=== PATIENT | female | born 1990 | race Caucasian/White ===

== ENCOUNTER 2021-09-06 09:30 | Inpatient (IN) | payer OTHER, SELFPAY ==
[2021-09-06] VITALS (14 sets, daily range): BP systolic 98–151; BP diastolic 43–94; PULSE 75–87; RESP 14–20; TEMP 35.9–36.6; O2SAT 95–98; BMI 43.0
[2021-09-06] MEDS: Lactated Ringers 1,000 ML 999 ML IV (10:12)
[2021-09-06 10:26] LABS: Bedside Glucose 78 mg/dL (74-106)
[2021-09-06] MEDS: Acetaminophen 500 MG Tablet 1000 MG PO ×3 (10:27→23:33)
[2021-09-06 10:32] LABS: Absolute Neutrophil Count 8.5 X10^3/uL (2.0-7.7); Basophil# 0.03 X10^3/uL; Basophil% 0.3 % (0-1); Eosinophil# 0.08 X10^3/uL; Eosinophils% 0.7 % (0-5); Hemoglobin 11.9 g/dL (12.0-15.0); Lymphocyte % 19.7 % (19-41); Mean Corpuscular Hgb 30.4 pg (27.0-32.0); Mean Corpuscular Volume 89.3 fL (81-99); Monocyte# 0.63 X10^3/uL; Monocyte% 5.4 % (0-10); NRBC Flagged by Analyzer 0 % (0-5); Neutrophil # 8.53 X10^3/uL (2.7-7.7); Neutrophil % 72.9 % (47-70); Platelet Count 207 K/mm3 (150-450); RBC Distribution Width CV 14.9 % (11.6-14.6); RBC Distribution Width SD 47.8 fl (35.1-43.9); Red Blood Count 3.92 M/mm3 (4.2-5.4); White Blood Count 11.7 K/mm3 (4.4-11.0)
[2021-09-06] MEDS: Sodium Citrate/Citric Acid 30 ML UDC PO (11:50)
--- NOTE | 2021-09-06 11:59 | PCM.HP.OB ---
HPI - General General Date of Admission: 09/06/21 HPI Narrative KYLEIGH SANCHEZ, is a 30 F who presents for . Maternal Data Information Final ANUJA: 09/12/21 Gestational age: 39&1 [facility] Medical History (Updated 09/06/21 @ 12:[address] Zev Olvera MD) Gestational diabetes Gestational diabetes requiring insulin LGA (large for gestational age) fetus Polyhydramnios Home Medications Prena-Tab 09/06/21 [History Last Taken Unknown] aspirin PO 09/06/21 [History Last Taken Unknown] Allergy/AdvReac Type Severity Reaction Status Date / Time No Known Allergies Allergy Verified 09/06/21 10:08 Surgical History (Updated 09/06/21 @ 10:23 by Geovanna Bynum) History of surgery [place] teeth extracted Social History Smoking Status: Never smoker History Elective abortions Hx Para 0 Spontaneous abortions Hx # Term Pregnancies Ectopic pregnancies Hx # Pregnancies Multiple births # of living children Vital Signs Vital Signs Vital Signs: 09/06/21 10:32 Temperature 98 F Temperature Source Temporal Pulse Rate 79 Respiratory Rate 14 Blood Pressure 123/82 H Blood Pressure Mean 95 Blood Pressure Source Monitor Blood Pressure Position Semi-Fowlers Blood Pressure Location Left Arm Pulse Ox 98 Oxygen Delivery Method Room Air Weight Weight: 283 lb 1.176 oz Body Mass Index (BMI) 43.0 Physical Exam Const alert and oriented x3 Chest inspection of chest normal Resp normal respiratory effort GI soft to palpation, non-tender and non-distended Inspection: gravid Extremity no calf tenderness Labs Labs Labs: Blood Type B NEGATIVE Antibody Screen NEGATIVE Hct 35.0 % (37-47) L Hgb 11.9 g/dL (12.0-15.0) L See [facility] H&P Assessment & Plan (1) LGA (large for gestational age) fetus: COMMENT: @ 39&1 PLAN: Admit to L&D MOD - patient counseled on R/B/A & elects to proceed with a primary for suspected LGA infant and gestational diabetes requiring insulin. Informed consent signed in the office & all questions answered. COVID negative Routine care (2) Gestational diabetes requiring insulin:
--- NOTE | 2021-09-06 12:06 | EX.PCM.OBRPT ---
Maternal Data Information Final ANUJA: 09/12/21 Gestational age: 39&1 Details Operative Information Date of Procedure: 09/06/21 Pre-Operative Diagnosis: (1) LGA (2) Gestational diabetes requiring insulin Post-Operative Diagnosis: Same Indications for : - Indications Narrative: The patient was taken to the operating room where spinal anesthesia was placed & found to be adequate. She was prepped and draped in the dorsal supine position with a leftward tilt. A Pfannenstiel skin incision was made approximately 2 cm above the symphysis pubis and carried through to the underlying fascia with the scalpel. The fascia was incised incised in the midline and extended laterally with the Arredondo scissors. The rectus muscles were in the midline and the peritoneum was entered carefully and bluntly. The peritoneal incision was stretched and the bladder blade was inserted. Vesicouterine peritoneum was tented up, incised & then bladder flap created gently. The uterine incision was made in a low transverse fashion with the scalpel and extended superiorly and inferiorly with blunt dissection. The infant's head was brought to the incision in the flexed position and delivered without difficulty. The head was gently guided to allow delivery of the anterior and posterior shoulders. The body then delivered with fundal pressure in the standard fashion. The 3VC cord was clamped and cut in delayed fashion. The infant was handed off to the waiting pediatric intensive physician. The placenta was delivered with fundal massage and gentle traction in the standard fashion. The uterus was exteriorized and cleared of clots and debris. The uterine incision was closed with #1 Vicryl suture in a running locked fashion. Monocryl suture was used in an imbricating fashion. The incision was examined and was found to be hemostatic. The uterus was returned to the abdominal cavity. After irrigating [place] was placed over the uterine incision as some areas were denuded (but hemostatic). The peritoneum was closed with vicryl suture in running fashion The rectus muscle was examined and any bleeding was Bovie cauterized. The fascia was closed with PDS suture in a running standard fashion. The subcutaneous tissue was examining and any bleeding was Bovie cauterized. The subcutaneous tissue was reapproximated with interrupted sutures. The skin was closed in a subcuticular fashion by the JERO while I was present in the labor & delivery unit. The remainder of the procedure was performed by me with assistance. All sponge, lap, and needle counts were correct. The patient was taken to her room for recovery in a stable condition. Classification: Scheduled Procedure Type: low transverse soap slabber #1: Reanna Merrill Type of Anesthesia: Spinal Antibiotic Given: Ancef 3 grams IV x1 Drain: Zimmerman to straight drain Estimated Blood Loss: 800ml Fluids Replaced: 1000ml Procedure Start Time: 12:23 Procedure Stop Time: 13:08 Findings Description of Procedure: Normal maternal uterus and adnexa Presentation: Positive for Vertex Amniotic Membrane Rupture Type: Artificial Amniotic Fluid Description: Clear Placenta Disposition: [facility] Cord Vessel Description: 3 Vessels Cord Entanglement: None Infant A Gender: Female (Jaxlynn; weight = 4025g ) (1 minute): 8 (5 minute): 9 Delayed Cord Clamping: Yes Complications Complications: None
[2021-09-06] MEDS: Oxytocin 30 units/NS 500 ml 30 UNITS/500 ML IV.SOLN 167 UNITS IV (13:30)
[2021-09-06] MEDS: Ketorolac 30 MG/ML Syringe IV ×2 (14:08→19:50)
[2021-09-06] MEDS: Lactated Ringers 1,000 ML 100 ML IV (22:24)
[2021-09-06] MEDS: Enoxaparin 40 MG/0.4 ML Syringe SC (23:33)
[2021-09-07 00:47] VITALS: BP 123/64; PULSE 76; RESP 16; TEMP 36.6; O2SAT 99
[2021-09-07] MEDS: Ketorolac 30 MG/ML Syringe IV ×2 (02:35→08:57)
[2021-09-07] MEDS: Acetaminophen 500 MG Tablet 1000 MG PO ×3 (04:50→18:17)
[2021-09-07 04:52] VITALS: BP 115/57; PULSE 80; RESP 16; TEMP 36.6; O2SAT 97
[2021-09-07 05:50] LABS: Hematocrit 30.1 % (37-47); Hemoglobin 10.2 g/dL (12.0-15.0); Mean Corp Hgb Conc 33.9 g/dL (32-36); Mean Corpuscular Hgb 30.5 pg (27.0-32.0); Mean Corpuscular Volume 90.1 fL (81-99); Mean Platelet Vol. 10.7 fl (6.2-12.0); Platelet Count 162 K/mm3 (150-450); RBC Distribution Width CV 14.7 % (11.6-14.6); RBC Distribution Width SD 47.9 fl (35.1-43.9); Red Blood Count 3.34 M/mm3 (4.2-5.4)
--- NOTE | 2021-09-07 06:43 | PCM.PN.OB ---
Subjective Subjective Patient seen at bedside. Sleeping sound. Minimal pain. Some ambulation. Pain controlled. Denies any headache, vision changes, SOB, or CP. Anticipate discharge home tomorrow. Objective Data Objective Data Vital Signs: Vital Signs Temp Pulse Resp BP Pulse Ox 97.8 F 80 16 115/57 L 97 09/07/21 04:52 09/07/21 04:52 09/07/21 04:52 09/07/21 04:52 09/07/21 04:52 Oxygen Delivery Method Room Air Weight: 283 lb 1.176 oz Body Mass Index (BMI) 43.0 Intake & Output: Intake and Output for Last 24 Hours 09/05/21 09/06/21 09/07/21 23:59 23:59 23:59 Intake Total 1700 / 1700 Output Total 520 / 520 250 / 250 Balance 1180 / 1180 -250 / -250 Lab / Micro Data Result Diagrams: 09/07/21 05:40 Labs: Laboratory Results - last 24 hr 09/06/21 10:12: WBC 11.7 H, RBC 3.92 L, Hgb 11.9 L, Hct 35.0 L, MCV 89.3, MCH 30.4, MCHC 34.0, RDW Std Deviation 47.8 H, RDW Coeff of Ashwin 14.9 H, Plt Count 207, MPV 11.0, Immature Gran % (Auto) 1.000 H, Neut % (Auto) 72.9 H, Lymph % (Auto) 19.7, [place] % (Auto) 5.4, Eos % (Auto) 0.7, Baso % (Auto) 0.3, Absolute Neuts (auto) 8.5 H, Absolute Lymphs (auto) 2.30, Nucleated RBC % 0 09/06/21 10:12: Blood Type B NEGATIVE, Antibody Screen NEGATIVE 09/06/21 10:12: POC Glucose 78 09/06/21 16:30: Screen NEGATIVE, Baby's Blood Type B POSITIVE, Baby's STEVE NEGATIVE 09/07/21 05:40: WBC 11.0, RBC 3.34 L, Hgb 10.2 L, Hct 30.1 L, MCV 90.1, MCH 30.5, MCHC 33.9, RDW Std Deviation 47.9 H, RDW Coeff of Ashwin 14.7 H, Plt Count 162, MPV 10.7 Micro: Microbiology 09/06/21 10:15 Nasal Secretion SARS-CoV-2 Antigen (Rapid) - Final ROS Eyes Eyes: Denies blurry vision, change in vision or spots in vision ENT HEENT: Denies dizziness or headache(s) Cardiovascular Cardiovascular: Denies abdominal pain, chest pain or dyspnea Respiratory/Chest Respiratory/Chest: Denies cough, dyspnea, shortness of breath at rest or shortness of breath with exertion Gastrointestinal Gastrointestinal: Denies abdominal pain, diarrhea or vomiting Genitourinary Genitourinary: Denies change in urinary stream, difficulty urinating or dysuria Musculoskeletal Musculoskeletal: Reports none Integumentary Integumentary: Denies rash Neurologic Neurologic: Denies dizziness, headache(s), memory loss or weakness Physical Exam Narrative Dressing is dry and intact Const alert and no apparent distress General Appearance: cooperative and comfortable Exam Limitations: no limitations HEENT normocephalic Eyes General Eye: normal appearance of both eyes Neck full ROM General: normal visual inspection Chest Chest: symmetrical chest wall rise Resp normal respiratory effort and normal air movement Effort and Inspection: symmetric chest movement Auscultation: clear to auscultation bilaterally Cardio regular rate and regular rhythm GI normal to inspection, nondistended, normoactive bowel sounds Back/Spine normal ROM Extremity full ROM and no calf tenderness General Extremity: normal exam except as noted Skin no rashes or lesions noted Neuro CN's II-XII intact bilaterally Psych mental status grossly normal Assessment & Plan (1) Gestational diabetes requiring insulin: (2) S/P primary low transverse : PLAN: PO Day 1 primary C/S Pain control Routine care Ambulation support Anticipate discharge home tomorrow
[2021-09-07 08:02] LABS: Bedside Glucose 97 mg/dL (74-106)
[2021-09-07 08:52] VITALS: BP 116/61; PULSE 67; RESP 16; TEMP 36.4; O2SAT 97
[2021-09-07] MEDS: Senna/Docusate Sodium 1 Tablet PO (11:27)
[2021-09-07] MEDS: Enoxaparin 40 MG/0.4 ML Syringe SC ×2 (11:27→21:37)
[2021-09-07 11:31] VITALS: BP 102/68; PULSE 86; RESP 16; TEMP 36.5; O2SAT 97
[2021-09-07] MEDS: Ibuprofen 600 MG Tablet PO ×2 (15:26→21:37)
[2021-09-07 15:28] VITALS: BP 128/65; PULSE 87; RESP 16; TEMP 36.4; O2SAT 97
[2021-09-07 20:47] VITALS: BP 124/70; PULSE 77; RESP 16; TEMP 36.5
[2021-09-08] MEDS: Acetaminophen 500 MG Tablet 1000 MG PO ×2 (00:54→06:23)
[2021-09-08 03:26] VITALS: BP 107/66; PULSE 80; RESP 18; TEMP 36.6
[2021-09-08] MEDS: Ibuprofen 600 MG Tablet PO ×2 (03:29→09:41)
--- NOTE | 2021-09-08 07:12 | PCM.DC.SUM ---
Providers Date of Admission: 09/06/21 Primary Care Physician: Dr. Ed Cabrales MD Reason For Visit: PRIMARY C SECTION Diagnosis Discharge Diagnosis (1) Gestational diabetes requiring insulin: Status: Acute Code(s): O24.414 - Gestational diabetes mellitus in , insulin controlled (2) S/P primary low transverse : Status: Acute Code(s): Z98.891 - History of uterine scar from previous surgery Medications at Discharge Home Medications acetaminophen 1,000 mg PO Q6H #0 tab 09/08/21 ibuprofen 600 mg PO Q6H #0 tab 09/08/21 Hospital Course Operations section Summary of Care Provided Hospital Course: Patient was for a primary section. Hospital course was uneventful Physical Exam Narrative Patient seen at bedside. Pain controlled. Ambulating and voiding without difficulty. Had 2 BM. Denies any headache, dizziness, SOB, or CP. Both breast and bottle feeding. Dressing is dry and intact. Desires discharge home today. Const alert and no apparent distress General Appearance: cooperative and comfortable Exam Limitations: no limitations HEENT normocephalic Eyes General Eye: normal appearance of both eyes Neck full ROM General: normal visual inspection Chest Chest: symmetrical chest wall rise Resp normal respiratory effort and normal air movement Effort and Inspection: symmetric chest movement Auscultation: clear to auscultation bilaterally Cardio regular rate and regular rhythm GI normal to inspection, nondistended, normoactive bowel sounds Back/Spine normal ROM Extremity full ROM and no calf tenderness General Extremity: normal exam except as noted Skin no rashes or lesions noted Neuro CN's II-XII intact bilaterally Psych mental status grossly normal Weight / BMI Weight Weight: 283 lb 1.176 oz Body Mass Index (BMI) 43.0 ABG / Lab / Microbiology Data Result Diagrams: 09/07/21 05:40 Laboratory: Laboratory Results - last 24 hr 09/07/21 05:37: POC Glucose 97 Microbiology: Microbiology 09/06/21 10:15 Nasal Secretion SARS-CoV-2 Antigen (Rapid) - Final D/C Instructions Discharge Diet: No restrictions May resume sexual activity in: 6-8 weeks Weight Bearing Status: Weight bearing as tolerated Lifting Restrictions: 20 lbs Call your doctor if your incision/area has: Continuous Slow Oozing, Increased Pain/ Swelling, Increased Redness, Foul Smelling Discharge and Swelling at the incision site Call your doctor if you observe: Fever of 101 or Higher, Inability to urinate, Using more than 1 pad per hour, Shortness of breath, Chest pain, Calf discomfort and Uncontrolled pain Remove Dressing in: 5 days Cleanse incision/area with: Soap & Water and Keep Dressing Clean & Dry When: 1 week in office for incision check or sooner if needed 6 weeks Meaningful Use Info Meaningful Use Diagnoses (Choose all that apply): None applicable Discharge Plan Admission Admit Date/Time: 09/06/21 09:30 Primary Reason for Your Visit: Primary C/S Attending Provider: Zev Olvera Primary Care Provider: Ed Cabrales Discharge Orders/Prescriptions Prescriptions: New acetaminophen 500 mg Tablet 1,000 mg PO Q6H Qty: 0 RF: 0 ibuprofen 600 mg Tablet 600 mg PO Q6H Qty: 0 RF: 0 Discontinued aspirin 81 mg Tablet PO RF: 0 Prena-Tab RF: 0 Referrals / Follow Up: Ed Cabrales MD [Primary Care Provider] - Disposition Disposition (needs filled in before D/C Order can be placed): Home, Self Care
[2021-09-08 08:34] VITALS: BP 97/67; PULSE 78; RESP 18; TEMP 36.5
[2021-09-08] MEDS: Enoxaparin 40 MG/0.4 ML Syringe SC (09:41)
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
== END 2021-09-08 10:35 | disposition home or self-care (01) | DRG 788 ==
PROVIDERS: Admitting Provider Obstetrics & Gynecology; Visit Provider Obstetrics & Gynecology
PROC: 10D00Z1 Extraction of Products of Conception, Low, Open Approach (ICD-10-PCS; CPT 59514; principal; 2021-09-06 11:45)
DX: O36.63X0 Maternal care for excessive fetal growth, third trimester, not applicable or unspecified (principal); O24.424 Gestational diabetes mellitus in childbirth, insulin controlled; Z37.0 Single live birth; Z3A.39 39 weeks gestation of pregnancy; Z79.82 Long term (current) use of aspirin
CPT/HCPCS: 59025; 59050; 82962; 85025; 85027; 85461; 86850; 86900; 86901; 87426; 90384; 99218; 99251; J7120; G0378; G0463; J2405; J2790

== ENCOUNTER → 2022-09-22 | Outpatient (CLI) | payer BC, SELFPAY ==
[2022-09-22 10:16] LABS: Absolute Lymphocyte Count 2.32 X10^3/uL (0.83-4.51); Absolute Neutrophil Count 5.6 X10^3/uL (2.0-7.7); Basophil# 0.05 X10^3/uL; Basophil% 0.6 % (0-1); Eosinophil# 0.19 X10^3/uL; Eosinophils% 2.2 % (0-5); Hematocrit 39.6 % (37-47); Hemoglobin 12.8 g/dL (12.0-15.0); Lymphocyte # 2.32 X10^3/ul (0.83-4.51); Lymphocyte % 26.9 % (19-41); Mean Corp Hgb Conc 32.3 g/dL (32-36); Mean Corpuscular Hgb 29.5 pg (27.0-32.0); Mean Corpuscular Volume 91.2 fL (81-99); Mean Platelet Vol. 11.2 fl (6.2-12.0); Monocyte# 0.42 X10^3/uL; Monocyte% 4.9 % (0-10); NRBC Flagged by Analyzer 0 % (0-5); Neutrophil # 5.62 X10^3/uL (2.7-7.7); Neutrophil % 65.2 % (47-70); Platelet Count 246 K/mm3 (150-450); RBC Distribution Width CV 13.8 % (11.6-14.6); RBC Distribution Width SD 46.6 fl (35.1-43.9); Red Blood Count 4.34 M/mm3 (4.2-5.4); White Blood Count 8.6 K/mm3 (4.4-11.0)
[2022-09-22 10:32] LABS: Hemoglobin A1c 5.4 % (3.8-5.6); Vitamin B12 > 2000 pg/mL (211-911)
[2022-09-22 10:36] LABS: AST(SGOT) 24 U/L (15-37); Alanine Aminotransfer ALT/SGPT 50 U/L (13-56); Albumin, Serum 3.6 g/dL (3.2-5.0); Alkaline Phosphatase 85 U/L (45-117); Anion Gap 6 (5-15); BUN 15 mg/dL (7-18); BUN/Creat Ratio 18.8 RATIO (10-20); Calcium,Total 8.4 mg/dL (8.5-10.1); Chloride 110 mmol/L (98-107); Cholesterol 122 mg/dL (200); EST Glomerular Filtration Rate 90 mL/min (>60); Est Glom Filt Rate - Afr Amer 109 mL/min (>60); Ferritin 27 ng/mL (8-252); Globulin 3.6 g/dL (2.2-4.2); Glucose 102 mg/dL (74-106); High Density Lipoprotein 48 mg/dL; Magnesium 1.8 mg/dL (1.6-2.6); Potassium 3.8 mmol/L (3.5-5.1); Protein, Total 7.2 g/dL (6.4-8.2); Sodium Level 139 mmol/L (136-145); Thyroid Stim Hormone (TSH) 1.11 uIU/mL (0.358-3.74); Triglycerides 91 mg/dL; Very Low Density Lipoprotein 18 mg/dL (5-40)
[2022-09-27 11:11] LABS: Vitamin D 1,25-Dihydroxy 56.1 pg/mL (24.8-81.5)
== END | disposition home or self-care (01) ==
PROVIDERS: PCP Family Medicine; Referring Provider Family Medicine; Visit Provider Family Medicine
DX: F32.9 Major depressive disorder, single episode, unspecified (principal); E66.9 Obesity, unspecified
CPT/HCPCS: 36415; 80053; 80061; 82607; 82652; 82728; 83036; 83735; 84443; 85025

== ENCOUNTER 2023-07-03 14:45 | Outpatient (CLI) | payer BC, SELFPAY ==
[2023-07-03 15:03] VITALS: BMI 40.6
[2023-07-03 15:05] VITALS: BP 104/74; PULSE 87; PULSE 88; TEMP 36.1; O2SAT 99
[2023-07-03 15:21] LABS: Mucous, Urine 0 SEEN /hpf (<or=2+)
[2023-07-03 15:45] LABS: Color, Urine Yellow (Yellow); Glucose, Dipstick Normal (Normal); Ketone-Dipstick Negative (Negative); Leukocyte Esterase-Dipstick 500 /ul (Negative); Nitrite-Dipstick Negative (Negative); Occult Blood-Urine 250 /ul (Negative); Protein-Dipstick 15 mg/dl (Negative); Urine Bilirubin Dipstick Negative (Negative); Urine Clarity Cloudy (Clear); Urine Urobilinogen Normal (Normal)
--- OUTSIDE RECORDS SUMMARY | 2023-07-03 16:14 | XMS RPT_ITS | CCD ---
Author Name Unknown Address [address] [facility] [address] [place] [address] Organization [facility] Care Team Providers Care Hairspring I Inspector Name Role Phone Jose M Cabrales MD Primary Care Provider YENNI CATALAN Attending Unavailable CABRALES, JOSE M A Primary Care Unavailable CABRALES, JOSE M A Primary Care Unavailable PUENTEJULIANA Attending Unavailable CABRALES, JOSE M A Primary Care Unavailable SERVANDO, JULIANA Referring Unavailable REYES ARRIETA Attending Unavail able CABRALES, JOSE M A Primary Care Unavailable PUENTE, AMY Referring Unavailable YENNI CATALAN Attending Unavailable CABRALES, JOSE M A Primary Care Unavailable CABRALES, JOSE M A Primary Care Unavailable PUENTE, JULIANA Referring Unavailable CABRALES, JOSE M A Primary Care Unavailable ALIZA STOREY Referring Unavailable CABRALES, JOSE M A Primary Care Unavailable YENNI CATALAN Attending Unavailable CABRALES, JOSE M A Primary Care Unavailable CANDACE NEWELL Referring Unavailable CABRALES, JOSE M A Primary Care Unavailable CABRALES, JOSE M A Primary Care Unavailable YENNI CATALAN Attending Unavailable YENNI CATALAN Attending Unavailable CABRALES, JOSE M A Primary Care Unavailable YENNI CATALAN Referring Unavailable CABRALES, JOSE M A Primary Care Unavailable YENNI CATALAN Attending Unavailable CABRALES, JOSE M A Primary Care Unavailable Medications Completed/Discontinued Medications Medication Drug Class(es) Dates Sig (Normalized) Sig (Original) Acetaminophen (2 sources) End: 10-19-2021 acetaminophen (TYLENOL ORAL) Take by mouth. 0 10/19/2021 Discontinued Problems Active Problems Problem Classification Problem Date Documented Date Episodic/Chronic Diabetes mellitus without complication (6 sources) Increased glucose level; Translations: [Other abnormal glucose] Onset: 02-19-2021 04-18-2023 Episodic Diabetes or abnormal glucose tolerance complicating ; childbirth; or the puerperium (3 sources) Gestational diabetes mellitus; Translations: [Gestational diabetes mellitus in , insulin controlled] Onset: 03-02-2021 01-25-2023 Episodic Headache; including migraine (8 sources) Tension-type headache; Translations: [Tension-type headache, unspecified, not intractable] Onset: 03-30-2023 03-30-2023 Chronic Other aftercare (1 source) Wound finding; Translations: [Encounter for other specified aftercare] Episodic Other complications of (11 sources) Obesity; Translations: [Obesity complicating , unspecified trimester] Onset: 02-18-2021 01-25-2023 Chronic Other complications of (7 sources) Maternal obesity complicating , childbirth and the puerperium, antepartum; Translations: [Obesity complicating , second trimester] Onset: 02-18-2021 03-30-2023 Chronic Other complications of (1 source) Obesity complicating , unspecified trimester; Translations: [Obesity in ] Onset: 06-13-2023 Chronic Other complications of (5 sources) History of gestational diabetes mellitus; Translations: [Supervision of with other poor reproductive or obstetric history, unspecified trimester] Episodic Other complications of (1 source) Supervision of with other poor reproductive or obstetric history, unspecified trimester; Translations: [History of gestational diabetes in prior , currently ] Onset: 04-14-2023 Episodic Other female genital disorders (1 source) Vaginal irritation; Translations: [Other specified noninflammatory disorders of vagina] 02-23-2023 Episodic Residual codes; unclassified (1 source) Gestation period, 11 weeks; Translations: [11 weeks gestation of ] 02-23-2023 Episodic Residual codes; unclassified (1 source) Gestation period, 12 weeks; Translations: [12 weeks gestation of ] 03-02-2023 Episodic Residual codes; unclassified (1 source) Gestation period, 16 weeks; Translations: [16 weeks gestation of ] 03-30-2023 Episodic Residual codes; unclassified (2 sources) Gestation period, 19 weeks; Translations: [19 weeks gestation of ] 04-21-2023 Episodic Past or Other Problems Problem Classification Problem Date Documented Da te Episodic/Chronic Immunizations and screening for infectious disease (6 sources) Requires measles, mumps and rubella vaccination; Translations: [Encounter for immunization] Onset: 02-07-2023 04-21-2023 Episodic Other complications of (15 sources) RhD negative; Translations: [Other specified related conditions, unspecified trimester] Onset: 02-18-2021 01-25-2023 Episodic Other complications of (10 sources) Rubella non-immune; Translations: [Supervision of other high risk pregnancies, unspecified trimester] Onset: 01-24-2023 02-08-2023 Episodic Other and delivery including normal (7 sources) care status; Translations: [Encounter for routine follow-up] Onset: 01-25-2023 Episodic Other screening for suspected conditions (not mental disorders or infectious disease) (9 sources) Patient encounter status; Translations: [Encounter for screening for malignant neoplasm of cervix] Onset: 02-07-2023 Episodic Results Test Name Value Interpretation Reference Range Facil ity Vital Signs Date Time Vital Sign Value Performing Clinician Faci lity 04-21-2023 15:07-0400 Diastolic blood pressure 70 mm[Hg] Candace Newell APRN.DESKTOP SUPPORT SPECIALIST Work Phone: [facility] 04-21-2023 15:07-0400 Systolic blood pressure 114 mm[Hg] Candace Newell FINAL CANOE INSPECTOR.DESKTOP SUPPORT SPECIALIST Work Phone: [facility] 04-21-2023 15:05-0400 Body weight 114.31 kg Candacealix Gastelumnadja FINAL CANOE INSPECTOR.DESKTOP SUPPORT SPECIALIST Work Phone: [facility] 04-14-2023 15:22-0400 Body weight 116.5752 kg YENNI CATALAN [facility] Encounters Encounter Date Encounter Type Care Provider Facility Start: 06-27-2023 End: 06-27-2023 ambulatory YENNI CATALAN Facility:[facility] Start: 06-15-2023 Telephone encounter Yenni nielsen MD Work Phone: OB/Gynecology Procedures Date Procedure Procedure Detail Performing Clinician Start: 04-21-2023 URINE OB DIP B/O Yenni Catalan MD Work Phone: Start: 04-21-2023 Us preg uterus after 1st trimest 06/26 gestation Yenni Catalan MD Work Phone: Start: 03-30-2023 URINE OB DIP B/O Yenni Catalan MD Work Phone: Start: 03-02-2023 Us nuchal translucency 1st gestation Juliana Puente APRN.DESKTOP SUPPORT SPECIALIST Work Phone: Start: 02-23-2023 H/O: section H/O s ection Yenni Catalan MD Work Phone: Start: 02-23-2023 URINE OB DIP B/O Yenni Catalan MD Work Phone: Start: 02-07-2023 Antibody screen YENNI CATALAN Plan of Treatment Date Care Activity Detail Author Start: 01-26-2028 HPV TESTING HPV TESTING [facility] Start: 01-26-2028 Screening for malign ant neoplasm of cervix HPV Testing [facility] Start: 11-07-2026 Urine microalbumin profile [facility] Start: 10-19-2026 HPV TESTING HPV TESTING [facility] Start: 01-25-2026 PAP TESTING PAP TESTING [facility] Start: 01-25-2026 Screening for malign ant neoplasm of cervix Pap Testing [facility] Start: 10-19-2024 PAP TESTING PAP TESTING [facility] Start: 07-11-2023 RSV Vaccine (1 - Ris k 1-dose series) RSV Vaccine (1 - Risk 1-dose series) [facility] Start: 06-15-2023 End: 09-14-2023 Fasting glucose [Mass/volume] in Serum or Plasma GLUCOSE FASTING BLD Lab Routine Elevated fasting blood sugar Expected: 06/15/2023, Expires: 09/14/2023 [facility] Work Phone: Immunizations Immunization Date Immunization Notes Care Provider Fa [facility] 06-13-2023 RHO(D) immune globul in- IV or IM Yenni Catalan MD Work Phone: [facility] 06-22-2021 RHO(D) immune globul in- IV or IM Reyes Bailon MD Work Phone: [facility] 02-08-2018 RHO(D) immune globul in- IV or IM Reyes Bailon MD Work Phone: [facility] 04-18-2017 influenza virus vacc ine, unspecified formulation Yenni Catalan MD Work Phone: [facility] 11-07-2016 tetanus toxoid, redu bony diphtheria toxoid, and acellular pertussis vaccine, adsorbed Reyes Bailon MD Work Phone: [facility] 07-24-2013 influenza virus vacc ine, unspecified formulation Reyes Bailon MD Work Phone: [facility] 05-08-2009 influenza virus vacc ine, unspecified formulation Reyes Bailon MD Work Phone: [facility] 05-03-2008 influenza virus vacc ine, unspecified formulation Reyes Bailon MD Work Phone: [facility] 05-03-2008 meningococcal polysaccharide vaccine (MPSV4) Reyes Bailon MD Work Phone: [facility] 07-12-2007 human papilloma viru s vaccine, quadrivalent Reyes Bailon MD Work Phone: [facility] 03-28-2007 human papilloma viru s vaccine, quadrivalent Reyes Bailon MD Work Phone: [facility] 01-19-2007 human papilloma viru s vaccine, quadrivalent Reyes Bailon MD Work Phone: [facility] 01-19-2007 tetanus toxoid, redu bony diphtheria toxoid, and acellular pertussis vaccine, adsorbed Reyes Bailon MD Work Phone: [facility] 05-31-2006 influenza virus vacc ine, unspecified formulation Reyes Bailon MD Work Phone: [facility] Work Phone: 05-27-2005 influenza virus vacc ine, unspecified formulation Reyes Bailon MD Work Phone: [facility] 02-13-1998 diphtheria, tetanus toxoids and pertussis vaccine Reyes Bailon MD Work Phone: [facility] 02-13-1998 measles, mumps and rubella virus vaccine Reyes Bailon MD Work Phone: [facility] 02-13-1998 poliovirus vaccine, inactivated Reyes Bailon MD Work Phone: [facility] 03-23-1994 diphtheria, tetanus toxoids and pertussis vaccine Reyes Bailon MD Work Phone: [facility] 03-23-1994 haemophilus influenz ae type b vaccine, HbOC conjugate Reyes Bailon MD Work Phone: [facility] 03-23-1994 measles, mumps and rubella virus vaccine Reyes Bailon MD Work Phone: [facility] 03-23-1994 poliovirus vaccine, inactivated Reyes Bailon MD Work Phone: [facility] 06-16-1993 hepatitis B vaccine, pediatric or pediatric/adolescent dosage Reyes Bailon MD Work Phone: [facility] 05-19-1993 diphtheria, tetanus toxoids and pertussis vaccine Reyes Bailon MD Work Phone: [facility] 05-19-1993 haemophilus influenz ae type b vaccine, HbOC conjugate Reyes Bailon MD Work Phone: [facility] 03-17-1993 diphtheria, tetanus toxoids and pertussis vaccine Reyes Bailon MD Work Phone: [facility] 03-17-1993 haemophilus influenz ae type b vaccine, HbOC conjugate Reyes Bailon MD Work Phone: [facility] 03-17-1993 poliovirus vaccine, inactivated Reyes Bailon MD Work Phone: [facility] 01-20-1993 diphtheria, tetanus toxoids and pertussis vaccine Reyes Bailon MD Work Phone: [facility] 01-20-1993 haemophilus influenz ae type b vaccine, HbOC conjugate Reyes Bailon MD Work Phone: [facility] 01-20-1993 poliovirus vaccine, inactivated Reyes Bailon MD Work Phone: [facility] 1992 hepatitis B vaccine, pediatric or pediatric/adolescent dosage Reyes Bailon MD Work Phone: [facility] 1992 hepatitis B vaccine, pediatric or pediatric/adolescent dosage Reyes Bailon MD Work Phone: [facility] Payers Date Payer Category Payer Unknown [employer] PPO [id number] 2022-Present [phone] [address] [place] [address] PPO [id number] 2022 Unknown [id number] 2020 Private Health Insurance [facility] CHOICE PLUS [id number] 2020-Present [phone] [address] [place] [address] HMO [id number] Social History Date Type Detail Facility [facility]: [facility] Start: 10-13-2021 End: 06-13-2023 Alcohol intake Ex-drinker (finding) [facility] Start: 09-03-2021 History SDOH Alcohol Frequency 98 [facility] Start: 12-24-2014 History SDOH Alcohol Comment Social [facility] Start: 09-03-2021 History SDOH Social Connections Living 3 [facility] Start: 02-18-2021 Education 15 [facility] Start: 1990 Sex Assigned At Not on file [facility] Start: 10-03-2021 End: 10-19-2021 Exposure to SARS-CoV-2 (event) Not sure [facility] Work Phone: Start: 01-25-2023 Tobacco use and exposure Smoke less tobacco non-user [facility] Start: 09-03-2021 End: 02-23-2023 History of Social function [facility] Start: 09-03-2021 End: 02-23-2023 Social connection and isolation panel [facility] In a typical week, h ow many times do you talk on the telephone with family, friends, or neighbors? Patient refused [facility] Are you now , , , , never or living with a partner? [facility] (I/We) worried whedeneen er (my/our) food would run out before (I/we) got money to buy more. DK or Refused [facility] Start: 12-13-2022 [facility] Goals Date Patient Goal Desired Activity /State Personal health goal Clinical Notes 03-13-2021 to 06-15-2023 Telephone Encounter - Yenni Catalan MD - 06/15/2023 11:39 AM ESTTelephone Encounter - Willa Feliciano LPN - 06/15/2023 11:08 AM ESTPatient InstructionsPatient InstructionsPatient Instructions Note Date & Type Note Facility 06-15-2023 Miscellaneous Notes Done Yenni Catalan MD Pt was left a message and mychart message with below results and instructions.. Please see pended order below. Willa Feliciano LPN ----- Message from Yenni Catalan MD sent at 06/15/2023 10:56 AM EST ----- 3hr GTT was negative but FBS was elevated. I would like her to get another FBS in the next 1-2 weeks. Also I recommend a low carb diet & walking 30 minutes daily. Yenni Catalan MD documented in this encounter [facility] 05-12-2023 Miscellaneous Notes sent message. Hermelinda Bo MD 22w5d She was having mild lower back pain 1-2 weeks, but it became severe now. Having lower pelvic pressure with it too. Rating back pain 8-9/10 today. Took tylenol and using heating pad now and does feel like it is starting to help. 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 When sitting pain is bearable, but gets worse when up and walking. No urinary symptoms, bleeding, leaking fluid or discharge. Please advise. Amanda Nickerson RN documented in this encounter [facility] 04-21-2023 Miscellaneous Notes S: Tomeka Sanchez is a 32 year old female who presents at 19w5d for a routine visit. Feeling movement. Denies headache, visual changes, chest pain, shortness of breath, vaginal bleeding, leakage of fluid, or dysuria. Feeling well, no complaints. O: See flow sheet Gen: No apparent distress Abd: Gravid, nontender, S=D ASSESSMENT/PLAN: 1. H/O section - ICD9: V45.89, ICD10: Z98.891 (primary diagnosis) - Plans repeat 2. 19 weeks gestation of - ICD9: V22.2, ICD10: Z3A.19 - Anatomy ultrasound today 3. Tension headache - ICD9: 307.81, ICD10: G44.209 - Intermittent - Taking Tylenol and Magnesium - Encouraged increased hydration - Decrease Dr. Bro consumption - Minimize stimulation: lights, noise - To notify if persistent or visual disturbances occur 4. History of gestational diabetes - ICD9: V12.21, ICD10: Z86.32 - Elevated early one hour - HgbA1c WNL - Plan for 3 hour at 28 weeks 5. Rh negative state in antepartum period - ICD9: 646.83, ICD10: O26.899, Z67.91 - Plan for Rhogam at 28 weeks 6. Encounter for supervision of normal in second trimester, unspecified - ICD9: V22.1, ICD10: Z34.92 - Sequential results reviewed - PTL precautions reviewed and when to call 7. Obesity affecting in second trimester, unspecified obesity type - ICD9: 649.13, ICD10: O99.212 - Plan for 3rd trimester testing RTO in 4 weeks or sooner as needed GHAZAL Villalta APRN.CNP documented in this encounter [facility] 04-21-2023 Instructions s Tiffany Solorzano - 04/21/2023 3:02 PM EDT SEQUENTIAL SCREENINGS The [facility] offers sequential screenings for women who are interested in screenings for chromosomal abnormalities and certain defects during a . The sequential screen combines ultrasound and blood tests to determine the risk of chromosomal abnormalities, including Down's Syndrome (Trisomy 21) and Trisomy 18, as well as open neural tube defects including spina bifida. Ultrasound examination is performed between 11 weeks and 13 weeks gestational age. Blood tests are drawn after the ultrasound and again later in the between 15 and 21 weeks gestational age. Please let your physician know if you are interested in this testing. It will require an appointment with our lead pharmacy technician. This is not an ultrasound performed by a physician in our office during a routine visit. SIGNS AND SYMPTOMS OF LABOR 1. Contractions every 10 minutes or more often 2. Clear, pink, or brownish fluid (water) leaking from vagina 3. Feeling that baby is pushing down, pressure 4. Low, dull backache 5. Cramps that feel like a period 6. Cramps with or without diarrhea If you notice any of the above symptoms, contact our office at [phone] and ask to speak with a nurse. After hours, you can call [employer] registry at [phone] OR call [facility] at [phone] and ask to have the doctor clinical applications manager paged. If you consider this an emergency, dial 9-1-1 or go to your nearest emergency department. NEED HELP? Are you dealing with a violent or abusive relationship? Are you a victim of rape or sexual assult? Call [facility] ([place]) 24 hour Crisis Hotline: 442.217.2987 or 892-243-8555. MANUAL Your Guide to a Healthy manual is now on-line. Visit [email or web address] Yeimy to download your free copy documented in this encounter [facility] 04-18-2023 Miscellaneous Notes Patient notified Please notify patient: Elevated 1 hour. History of GDM insulin controlled. HgbA1C ordered to rule out pre existing diabetes. If within normal limits, plan for 3 hour around 28 weeks. Encourage whole foods and decreasing carb intake, as well as increasing exercise. Blood type B-, will need Rhogam at that time as well. Plan of care reviewed with Dr. Bo. documented in this encounter [facility] 03-30-2023 Miscellaneous Notes S: Tomeka is a 32 year old female who presents at 16w4d gestation for a routine visit. Feeling movement. Denies headache, visual changes, chest pain, shortness of breath, vaginal bleeding, leakage of fluid, or dysuria. Feeling well, no complaints. O: See flow sheet Gen: No apparent distress Abd: Gravid, nontender ASSESSMENT/PLAN: 1. History of gestational diabetes in prior , currently - ICD9: V23.49, ICD10: O09.299, Z86.32 (primary diagnosis) -Was diagnosed in 1st trimester, insulin dependent - HGB A1C 5.5% this - Plan for early one hour 2. 16 weeks gestation of - ICD9: V22.2, ICD10: Z3A.16 - URINE OB DIP B/O 3. Rh negative state in antepartum period, second trimester - ICD9: 646.83, ICD10: O26.892, Z67.91 - Plan for Rhogam at 28 weeks 4. Obesity affecting in second trimester, unspecified obesity type - ICD9: 649.13, ICD10: O99.212 - Plan for testing 3rd trimester - Reviewed exercise and nutrition - Taking ASA 5. Encounter for anatomic survey - ICD9: V28.81, ICD10: Z36.89 - Ordered and scheduled 6. Tension headache - ICD9: 307.81, ICD10: G44.209 - Comes and goes, not persistent - Reviewed hydration - Reviewed Magnesium supplementation Reviewed PTL precuations. Return to office in 4 weeks for anatomy ultrasound and OB visit on Candace Newell APRN.DESKTOP SUPPORT SPECIALIST documented in this encounter [facility] 03-30-2023 Instructions Tiffany Rivas Ma - 03/30/2023 2:34 PM EDT SEQUENTIAL SCREENINGS The [facility] offers sequential screenings for women who are interested in screenings for chromosomal abnormalities and certain defects during a . The sequential screen combines ultrasound and blood tests to determine the risk of chromosomal abnormalities, including Down's Syndrome (Trisomy 21) and Trisomy 18, as well as open neural tube defects including spina bifida. Ultrasound examination is performed between 11 weeks and 13 weeks gestational age. Blood tests are drawn after the ultrasound and again later in the between 15 and 21 weeks gestational age. Please let your physician know if you are interested in this testing. It will require an appointment with our lead pharmacy technician. This is not an ultrasound performed by a physician in our office during a routine visit. SIGNS AND SYMPTOMS OF LABOR 1. Contractions every 10 minutes or more often 2. Clear, pink, or brownish fluid (water) leaking from vagina 3. Feeling that baby is pushing down, pressure 4. Low, dull backache 5. Cramps that feel like a period 6. Cramps with or without diarrhea If you notice any of the above symptoms, contact our office at [phone] and ask to speak with a nurse. After hours, you can call doctors registry at [phone] OR call [facility] at [phone] and ask to have the doctor clinical applications manager paged. If you consider this an emergency, dial or go to your nearest emergency department. NEED HELP? Are you dealing with a violent or abusive relationship? Are you a victim of rape or sexual assult? Call [facility] ([place]) 24 hour Crisis Hotline: 254.758.2945 or 736-652-5843. MANUAL Your Guide to a Healthy manual is now on-line. Visit [email or web address] Ye[facility] to download your free copy documented in this encounter [facility] 03-02-2023 Instructions Nazanin Gates LPN - 03/02/2023 9:14 AM EDT SEQUENTIAL TESTING PROCESS Sequential Screen First Trimester Today you are currently: 12w4d weeks 03/02/2023: Ultrasound and blood test. Sequential Screen Second Trimester (16-17 Weeks Gestation) When you are called with your results, the nurse will give the optimal draw dates for the Sequential screen second trimester. Blood testing can be done at any [facility] lab. Please report to the any judicial registrar office front end technician for the Sequential Part 2 requisition and order before reporting to the lab. Your weight will need to be documented for testing. Please note: -No appointment is need for your second blood draw. -Office hours are 8 am to 4:30 pm. -Please have testing done prior to 12 noon on Monday's -Once the sequential testing is started, in the first trimester the only follow-up will be for the sequential screen second trimester. Please don't have a Quad screen ordered by another provider. If you or your Provider have any questions please call your maternal medicine office, for east side please call [phone] or for the West side call [phone] and ask for the the nurse. Thank you. documented in this encounter [facility] 03-02-2023 Miscellaneous Notes Patient here for First Trimester Screening. See ultrasound report for details. Options for genetic screening and diagnosis discussed with the patient. Patient opts for first trimester screening and the sequential screening protocol. Limitations of screening tests discussed with the patient. Aliza Storey MD documented in this encounter [facility] 02-28-2023 Miscellaneous Notes Patient notified of recommendations and stated that she was starting to feel better. Sounds like a GI virus. I would encourage hydration. I can send her in some zofran if she would like. If has severe abdominal pain or unable to tolerate PO then I would reccommed ED visit Yenni Catalan MD 12w2d Called and spoke with patient. Her upper abdominal pain is generally midline. Pain rate of 7 out of 10 when it occurs. She's been experiencing nausea this before the pain started. Does not take medication for it. Denies vaginal bleeding. She's had watery diarrhea 4-5 times in the last 24 hours. Please advise. Antoinette Lake RN documented in this encounter [facility] 02-23-2023 Miscellaneous Notes KJ - No VB/LOF/ctxs. She reports vaginal irritation after using a new soap. TAUS: active fetus with fca A&P: Vaginitis swab NT next week with sequential Anatomy US ordered MOD - plans repeat Yenni Catalan MD documented in this encounter [facility] 02-23-2023 Instructions Masters Jeanine, Tiffany - 02/23/2023 9:52 AM EDT SEQUENTIAL SCREENINGS The [facility] offers sequential screenings for women who are interested in screenings for chromosomal abnormalities and certain defects during a . The sequential screen combines ultrasound and blood tests to determine the risk of chromosomal abnormalities, including Down's Syndrome (Trisomy 21) and Trisomy 18, as well as open neural tube defects including spina bifida. Ultrasound examination is performed between 11 weeks and 13 weeks gestational age. Blood tests are drawn after the ultrasound and again later in the between 15 and 21 weeks gestational age. Please let your physician know if you are interested in this testing. It will require an appointment with our lead pharmacy technician. This is not an ultrasound performed by a physician in our office during a routine visit. SIGNS AND SYMPTOMS OF LABOR 1. Contractions every 10 minutes or more often 2. Clear, pink, or brownish fluid (water) leaking from vagina 3. Feeling that baby is pushing down, pressure 4. Low, dull backache 5. Cramps that feel like a period 6. Cramps with or without diarrhea If you notice any of the above symptoms, contact our office at [phone] and ask to speak with a nurse. After hours, you can call doctors registry at [phone] OR call [facility] at [phone] and ask to have the doctor clinical applications manager paged. If you consider this an emergency, dial 9-1-1 or go to your nearest emergency department. NEED HELP? Are you dealing with a violent or abusive relationship? Are you a victim of rape or sexual assult? Call [facility] ([facility] 24 hour Crisis Hotline: 862.900.5946 or 348-522-6685. MANUAL Your Guide to a Healthy manual is now on-line. Visit [email or web address] to download your free copy documented in this encounter [facility] 01-25-2023 Note HNO ID: [id number] Author: Reyes Arrieta MD Service: ? Author Type: Physician Type: Progress Notes Filed: 01/25/2023 4:48 PM Note Text: OB point of care ultrasound was performed. See imaging tab for details. Reyes Ziegler MD [facility] 01-25-2023 History of Presen t illness Narrative OB point of care ultrasound was performed. See imaging tab for details. Reyes Ziegler MD documented in this encounter [facility] 01-25-2023 Note HNO ID: [id number] Author: Juliana Puente APRN.DARA Service: ? Author Type: Nurse Practitioner Type: Progress Notes Filed: 01/25/2023 5:48 PM Note Text: Consumer Recruiter offered: Patient declines. INITIAL OB ASSESSMENT OB Provider: Juliana Puente CNP HPI: Tomeka is a 32 year old White here to establish Obstetrical Care. Patient's last menstrual period was 11/29/2022 (exact date). from OB Dating Form. Cycles regular was planned Complaints: vaginal bleeding Spotting with wiping a week ago and a few drops of blood after SI No cramping. Nausea without vomiting OB History T1 L1 SAB1 IAB0 Ectopic0 Multiple0 Live Births1 Previous history: Prior : yes x 1 History of 4th degree laceration: NA History of shoulder dystocia: No History of Hypertensive disorders including pre-eclampsia, chronic hypertension or gestational hypertension: No History of gestational diabetes: Yes insulin used Patient's Risk Screening for delivery: Have you had a prior sage between 20w and 36w6d?: No MEDICAL/PSYCHOSOCIAL HISTORY: History of hemorrhage or bleeding concerns: No Thyroid Disease: No History of chronic hypertension: No History of pre-existing diabetes: No ABO/RH(D) Date Value Ref Range Status 06/22/2021 B NEGATIVE Final BMI 37.46 kg/(m2) History of abnormal pap: No Prior treatment for cervical dysplasia: none. History of STDs: None Tobacco use: No Caffeine use: None Drug use: No Alcohol use: No Multivitamin with Folic acid: Yes Gnosticist or heritage: No Would refuse blood transfusion if medically necessary: No Are you currently employed? Yes, Occupation: EDUCATIONAL PROGRAM DIRECTOR Do you have any history of depression, anxiety, PTSD, eating disorders or other mood problems: Yes - depression. Recently switched from bupropion to sertraline due to . No PPD Do you have any safety concerns or history of traumatic events that you would like to discuss with your provider: No How often does this describe you? I don't have enough money to pay my bills: Rarely Within the past 12 months, have you worried that your food would run out before you had money to buy more: Never In the past 12 months, has lack of reliable transportation kept you from going to medical appointments or work, or from keeping things needed for daily living: Never In the past 12 months, have you had any concerns about having a place to live, or about the condition or quality of your housing: Never Are there any cultural or spiritual needs we should be aware of: No Depression: denies symptoms of depression. OB Depression and Anxiety Screening- This Encounter (since 01/24/2023) Over the past 2 weeks have you felt down, depressed, or hopeless? Negative Over the past two weeks, have you felt little interest or pleasure in doing things?? Negative Feeling nervous, anxious or on edge 0-Not at all Not being able to stop or control worrying 0-Not al all Anxiety Pre-Screening Total (If >/= 3 additional questions will be reviewed) 0 GENETIC SCREENING: Partner present: No Patient verbalized knowledge of partner family health history: Yes Do you or your partner have any personal or family history of defects not previously discussed: No Do you have history of a complicated by anomaly, genetic condition, or demise: No Marital Status: Partner: Name: Jamshid Age: 31 Occupation: dispatcher Gender: Male History of STDs: None PAST MEDICAL HISTORY Diagnosis Date ALLERGIC RHINITIS 01/19/2007 Chicken pox 06/26/1998 Diet controlled gestational diabetes mellitus (GDM) in first trimester 03/02/2021 Elevated glucose 02/19/2021 02/19/21- Elevated 1 hour GCT. 3 hour GTT ordered. Leigha Kaye APRN.ZAIRA Insulin controlled gestational diabetes mellitus (GDM) during PAST SURGICAL HISTORY Procedure Laterality Date DELIVERY ONLY 09/06/2021 LTCS EXTRACTION, ERUPTED TOOTH OR EXPOSED ROOT (ELEVATION AND/OR FORCEPS REMOVAL) 06/26/2008 Current Outpatient Medications Medication Sig Dispense Refill PNV no.95/ferrous fum/folic ac ( ORAL) Take by mouth. sertraline (ZOLOFT) 50 mg tablet Take 50 mg by mouth once daily. amphetamine-dextroamphetamine XR (ADDERALL XR) 25 mg biphasic capsule Take 25 mg by mouth once daily. No current facility-administered medications for this visit. Allergies As of Date: 01/25/2023 (No Known Allergies) Fully Assessed 01/25/2023 Does patient have penicillin allergy: No REVIEW OF SYSTEMS: GENERAL: Negative for: Fever or Chills HEENT: Negative for: Headache, Impaired Vision, Ringing in Ears, Nosebleeds NECK: Negative for: Swelling, Pain, Stiffness RESPIRATORY: Negative for: Cough, Shortness of breath, Wheezing GASTROINTESTINAL: Negative for: Heartburn, Constipation, Diarrhea, Blood in stool, Vomiting MUSC (more content not included)... [facility] 01-25-2023 History of Presen t illness Narrative Consumer Recruiter offered: Patient declines. INITIAL OB ASSESSMENT OB Provider: Juliana Puente CNP HPI: Tomeka is a 32 year old White here to establish Obstetrical Care. Patient's last menstrual period was 11/29/2022 (exact date). from OB Dating Form. Cycles regular was planned Complaints: vaginal bleeding Spotting with wiping a week ago and a few drops of blood after SI No cramping. Nausea without vomiting OB History T1 L1 SAB1 IAB0 Ectopic0 Multiple0 Live Births1 Previous history: Prior : yes x 1 History of 4th degree laceration: NA History of shoulder dystocia: No History of Hypertensive disorders including pre-eclampsia, chronic hypertension or gestational hypertension: No History of gestational diabetes: Yes insulin used Patient's Risk Screening for delivery: Have you had a prior sage between 20w and 36w6d?: No MEDICAL/PSYCHOSOCIAL HISTORY: History of hemorrhage or bleeding concerns: No Thyroid Disease: No History of chronic hypertension: No History of pre-existing diabetes: No ABO/RH(D) Date Value Ref Range Status 06/22/2021 B NEGATIVE Final BMI 37.46 kg/(m^2) History of abnormal pap: No Prior treatment for cervical dysplasia: none. History of STDs: None Tobacco use: No Caffeine use: None Drug use: No Alcohol use: No Multivitamin with Folic acid: Yes Gnosticist or heritage: No Would refuse blood transfusion if medically necessary: No Are you currently employed? Yes, Occupation: EDUCATIONAL PROGRAM DIRECTOR Do you have any history of depression, anxiety, PTSD, eating disorders or other mood problems: Yes - depression. Recently switched from bupropion to sertraline due to . No PPD Do you have any safety concerns or history of traumatic events that you would like to discuss with your provider: No How often does this describe you? I don't have enough money to pay my bills: Rarely Within the past 12 months, have you worried that your food would run out before you had money to buy more: Never In the past 12 months, has lack of reliable transportation kept you from going to medical appointments or work, or from keeping things needed for daily living: Never In the past 12 months, have you had any concerns about having a place to live, or about the condition or quality of your housing: Never Are there any cultural or spiritual needs we should be aware of: No Depression: denies symptoms of depression. OB Depression and Anxiety Screening- This Encounter (since 01/24/2023) Over the past 2 weeks have you felt down, depressed, or hopeless? Negative Over the past two weeks, have you felt little interest or pleasure in doing things? Negative Feeling nervous, anxious or on edge 0-Not at all Not being able to stop or control worrying 0-Not al all Anxiety Pre-Screening Total (If >/= 3 additional questions will be reviewed) 0 GENETIC SCREENING: Partner present: No Patient verbalized knowledge of partner family health history: Yes Do you or your partner have any personal or family history of defects not previously discussed: No Do you have history of a complicated by anomaly, genetic condition, or demise: No Marital Status: Partner: Name: Jamshid Age: 29 Occupation: dispatcher Gender: Male History of STDs: None PAST MEDICAL HISTORY Diagnosis Date ALLERGIC RHINITIS 01/19/2007 Chicken pox 06/26/1998 Diet controlled gestational diabetes mellitus (GDM) in first trimester 03/02/2021 Elevated glucose 02/19/2021 02/19/21- Elevated 1 hour GCT. 3 hour GTT ordered. Leigha Kaye APRN.CNM Insulin controlled gestational diabetes mellitus (GDM) during PAST SURGICAL HISTORY Procedure Laterality Date DELIVERY ONLY 09/06/2021 LTCS EXTRACTION, ERUPTED TOOTH OR EXPOSED ROOT (ELEVATION AND/OR FORCEPS REMOVAL) 06/26/2008 Current Outpatient Medications Medication Sig Dispense Refill PNV no.95/ferrous fum/folic ac ( ORAL) Take by mouth. sertraline (ZOLOFT) 50 mg tablet Take 50 mg by mouth once daily. amphetamine-dextroamphetamine XR (ADDERALL XR) 25 mg biphasic capsule Take 25 mg by mouth once daily. No current facility-administered medications for this visit. Allergies As of Date: 01/25/2023 (No Known Allergies) Fully Assessed 01/25/2023 Does patient have penicillin allergy: No REVIEW OF SYSTEMS: GENERAL: Negative for: Fever or Chills HEENT: Negative for: Headache, Impaired Vision, Ringing in Ears, Nosebleeds NECK: Negative for: Swelling, Pain, Stiffness RESPIRATORY: Negative for: Cough, Shortness of breath, Wheezing GASTROINTESTINAL: Negative for: Heartburn, Constipation, Diarrhea, Blood in stool, Vomiting MUSCULOSKELETAL: Negative for: Muscle or joint pain, stiffness, Joint swelling NEUROLOGIC/PSYCHIATRIC: + depression - well-controlled Negative for: Weakness, Paralysis, Numbness, Tingling, Tremor, Anxiety, Memory loss SKIN: Negative for: Rash, Itching GENITOURINARY: Negative for: vaginal itching, vaginal discharge, hematuria or dysuria PHYSICAL EXAM: BP 104/60 Ht 5' 8 (1.73m) Wt 246 lb 6.4 oz (111.8kg) LMP 11/29/2022 BMI 37.47 kg/(m^2). GENERAL: pleasant in no apparent distress DERMATOLOGY: Normal, without lesions, non-icteric, and non-hirsute NECK: Supple, full range of motion, no adenopathy, and thyroid normal CHEST: Normal inspiratory effort BREAST: soft, non-tender, symmetric, no dominant mass, normal nipple-areolar complex, no lymphadenopathy, and no nipple discharge ABDOMEN: soft, non-tender, and no masses NEURO: alert and oriented x3,exam grossly non-focal PELVIS: External genitalia normal without lesions. Perineal body intact. No vaginal or cervical lesions. Cervix closed. No adnexal masses or tenderness. Clinical Pelvimetry: Yes - Assessed as adequate Limited OB ultrasound exam: single intrauterine , positive cardiac activity, and crown-rump length 12.2 mm ASSESSMENT: 32 year old at 7w3d wks gestational age PLAN: 1) Patient oriented to practice. Patient given new OB orientation folder. Discussed nutrition, folic acid supplementation, dietary guidelines, exercise, smoking, alcohol, caffeine, and drug use. Discussed gestational weight gain guidelines. Discussed routine OB labs including STD/HIV. Discussed how to access Your guide to a health and the Industrial Machine [employer]. Discussed aneuploidy and carrier screening. Regarding aneuploidy screening, nuchal translucency/first trimester early anatomy ultrasound and NIPT were discussed. Regarding carrier screening, the myriad screen was discussed. The risks/benefits and limitations of NIPT/aneuploidy screening were reviewed including the potential for false negative and false positive results. We discussed the availability of professional-society guided carrier screening and reviewed the conditions screened and limitations of screening. The availability of genetic counseling was reviewed. Information on aneuploidy/carrier screening was provided. Discussed hemoglobin electrophoresis. 2) History of section: Problem list updated, mode of delivery counseling with primary OB provider at the next visit. History of diabetes: GDM A2 Obesity (BMI >30), will order early glucose screen or Hemoglobin A1C. Follow up in 5 weeks at 12 weeks gestation or sooner prn. Juliana Puente APRN.DARA I spent a total of 54 minutes on the date of the service which included preparing to see the patient, [id number] patient care, completing clinical documentation, obtaining and/or reviewing separately obtained history, performing a medically appropriate examination, counseling and educating the patient/family/caregiver, and ordering medications, tests, or procedures. documented in this encounter [facility] 01-25-2023 Instructions Nazanin Gates LPN - 01/25/2023 8:02 AM EDT Please select the following link to access the [facility] Your Guide to a Healthy . [email or web address] documented in this encounter [facility] 10-19-2021 History of Presen t illness Narrative VISIT Obstetric History T1 L1 SAB1 IAB0 Ectopic0 Multiple0 Live Births1 Name of Baby 1: Not recorded Date: 03/2018 GA: 6w0d Delivery: Not recorded Apgar1: Not recorded Apgar5: Not recorded Living: Not recorded Name of Baby 2: Pau Date: 09/06/21 GA: 39w1d Delivery: , Low Transverse Apgar1: 8 Apgar5: 9 Living: Living Tomeka Sanchez is a 30 year old year old here for visit. Delivery Summary: ROS/ Recovery: Feeding: Bottle feeding problems: Stopped after 2 weeks Menses since delivery: none Menstrual pattern prior to : Regular periods Pajonal since delivery: Not resumed Depression: denies symptoms of depression. OB Depression and Anxiety Screening- This Encounter (since 10/18/2021) Over the past 2 weeks have you felt down, depressed, or hopeless? Negative Over the past two weeks, have you felt little interest or pleasure in doing things? Negative Feeling nervous, anxious or on edge 0-Not at all Not being able to stop or control worrying 0-Not al all Anxiety Pre-Screening Total (If >/= 3 additional questions will be reviewed) 0 Emotional support: Yes Bowel symptoms: Negative for abdominal discomfort, blood in stools or black stools and change in bowel habits Abdomen: She reports no incisional redness, tenderness, erythema Bladder symptoms: No dysuria, gross hematuria, urinary frequency, urinary urgency, or incontinence Other issues: None Last Pap: 2019 normal HPV: N/A PAST MEDICAL HISTORY Diagnosis Date ALLERGIC RHINITIS 01/19/2007 Chicken pox 06/26/1998 Diet controlled gestational diabetes mellitus (GDM) in first trimester 03/02/2021 Elevated glucose 02/19/2021 02/19/21- Elevated 1 hour GCT. 3 hour GTT ordered. Leigha Kaye APRN.CNM PAST SURGICAL HISTORY Procedure Laterality Date DELIVERY ONLY 09/06/2021 LTCS EXTRACTION, ERUPTED TOOTH OR EXPOSED ROOT (ELEVATION AND/OR FORCEPS REMOVAL) 06/26/2008 FAMILY HISTORY Problem Relation Age of Onset None Mother no CAD None Father None Sister Diabetes Maternal Grandmother No Known Problems Maternal Grandfather Cervical Cancer Paternal Grandmother Aneurysm Paternal Grandfather Social History Tobacco Use Smoking status: Never Smoker Smokeless tobacco: Never Used Vaping Use Vaping Use: Never used Substance Use Topics Alcohol use: Not Currently Comment: Social Drug use: No PHYSICAL EXAMINATION: BP 106/68 Wt 256 lb (116.1kg) LMP 12/06/2020 GENERAL: pleasant, female in no apparent distress HEENT: Normocephalic, atraumatic, mucus membranes moist and no lesions NECK: Supple, full range of motion, no adenopathy and thyroid normal DERMATOLOGY: Normal, without lesions, non-icteric and non-hirsute BREAST: soft, non-tender, symmetric, no dominant mass, normal nipple-areolar complex, no lymphadenopathy and no nipple discharge CHEST: Normal inspiratory effort ABDOMEN: soft, non-tender and no masses. INCISION: No incisional redness, swelling, or drainage PELVIC: external genitalia normal, normal Bartholin's glands, urethra, [place]'s glands, no vulvar lesions, no cervical lesions, good vaginal support, physiologic discharge present, normal appearing perineal body and perianal region BIMANUAL: uterus normal size, shape and consistency, no adnexal masses and non-tender NEURO: alert and oriented x3,exam grossly non-focal EXTREMITIES: normal ASSESSMENT AND PLAN: 30 year old status post CS with normal course. Contraception plan: condoms Reviewed recommended interpregnancy interval. Follow up: GDM: Needs 2 hour GTT RTC for annual exams and PRN Yenni Catalan MD documented in this encounter [facility] 10-13-2021 History of Presen t illness Narrative Pt here for cs wound check. Pt reports noticed a small hole underneath incision site, denies any fever, chills or purulent drainage. Pt reports trying to keep it as cleana dn dry as possible denies any pain. Exam: Gen; female in NAD Abd: soft, non tender. Incision well healed- pinpoint superficial opening inferior to incision on right- no active drainage, not able to probe site- possible resolving folliculitis site. A/p: 30 yo s/p CS 09/06/21 here for wound check 1) reassurance given 2) follow up for routine PP Care Reyes Ziegler MD documented in this encounter [facility] documented as of this encounter (statuses as of 10/13/2021) [facility] History of Past illness Narrative* Problem Noted Date Resolved Date Pneumonia due to COVID-19 virus 03/17/2021 03/17/2021 COVID 03/11/2021 03/17/2021 Insulin controlled gestation al diabetes mellitus (GDM) during , antepartum 03/02/2021 09/14/2021 Elevated glucose 02/19/2021 09/14/2021 Overview: 03/02/21- Two elevated levels on 3 hour GTT. Dx GDM. Leigha Kaye APRN.CNM 02/19/21- Elevated 1 hour GCT. 3 hour GTT ordered. Leigha Kaye APRN.ZAIRA Current with histo ry of spontaneous during prior 02/18/2021 09/14/2021 Overview: 02/18/2021atient has a history of a miscarriage. Denies any bleeding or pain this . Quantitative hCGs have been done. TKRN Obesity during 02/18/2021 022 Overview: 02/18/2021atient is obese. We will plan on GCT early in . TKRN Rh negative state in antepartum period 09/14/2021 Overview: 02/18/2021atient is Rh-. She is a RhoGam candidate. TKRN Patient request for diagnostic testing 09/14/2021 Overview: 02/18/2021atient desires nuchal ultrasound. Declines genetic carrier screening testing.TKRN History of chicken pox 12/24/2014 2 Pain in joint, shoulder region 11/14/2012 0 09/14/2021 ALLERGIC RHINITIS 01/19/2007 09/14/2021 documented as of this encounter (statuses as of 10/19/2021) [facility] History of Past illness Narrative* Problem Noted Date Diagnosed Date Resolved Date Pneumonia due to COVID-19 virus 03/17/2021 03/17/2021 COVID 03/11/2021 03/17/2021 Insulin controlled gestation al diabetes mellitus (GDM) during , antepartum 03/02/2021 09/14/2021 Elevated glucose 02/19/2021 09/14/2021 Overview: 03/02/21- Two elevated levels on 3 hour GTT. Dx GDM. Leigha Kaye APRN.CNM 02/19/21- Elevated 1 hour GCT. 3 hour GTT ordered. Leigha Kaye APRN.CNM Elevated glucose 02/19/2021 01/25/2023 Overview: 02/19/21- Elevated 1 hour GCT. 3 hour GTT ordered. Leigha Kaye APRN.CNM Current with histo ry of spontaneous during prior 02/18/2021 09/15/19 Overview: 02/18/2021atient has a history of a miscarriage. Denies any bleeding or pain this . Quantitative hCGs have been done. TKRN Patient request for diagnostic testing 02/18/2021 09/14/2021 Overview: 1Patient desires nuchal ultrasound. Declines genetic carrier screening testing.TKRN History of chicken pox 12/24/201409/14 Pain in joint, shoulder region 11/14/2012 09/14/2021 ALLERGIC RHINITIS 01/19/2007 09/14/2021 documented as of this encounter (statuses as of 01/26/2023) [facility] History of Past illness Narrative* Problem Noted Date Diagnosed Date Resolved Date Pneumonia due to COVID-19 virus 03/17/2021 03/17/2021 COVID 03/11/2021 03/17/2021 Insulin controlled gestation al diabetes mellitus (GDM) during , antepartum 03/02/2021 09/14/2021 Elevated glucose 02/19/2021 09/14/2021 Overview: 03/02/21- Two elevated levels on 3 hour GTT. Dx GDM. Leigha Kaye APRN.CNM 02/19/21- Elevated 1 hour GCT. 3 hour GTT ordered. Leigha Kaye APRN.CNM Elevated glucose 02/19/2021 01/25/2023 Overview: 02/19/21- Elevated 1 hour GCT. 3 hour GTT ordered. Leigha Kaye APRN.CNM Current with histo ry of spontaneous during prior 02/18/2021 09/15/19 Overview: 02/18/2021atient has a history of a miscarriage. Denies any bleeding or pain this . Quantitative hCGs have been done. TKRN Patient request for diagnostic testing 02/18/2021 09/14/2021 Overview: 02/18/2021atient desires nuchal ultrasound. Declines genetic carrier screening testing.TKRN History of chicken pox 12/24/201409/14 Pain in joint, shoulder region 11/14/2012 09/14/2021 ALLERGIC RHINITIS 01/19/2007 09/14/2021 documented as of this encounter (statuses as of 01/26/2023) [facility] History of Past illness Narrative* Problem Noted Date Diagnosed Date Resolved Date Pneumonia due to COVID-19 virus 03/17/2021 03/17/2021 COVID 03/11/2021 03/17/2021 Insulin controlled gestation al diabetes mellitus (GDM) during , antepartum 03/02/2021 09/14/2021 Insulin controlled gestation al diabetes mellitus (GDM) during 03/02/2021 02/24/20 23 Elevated glucose 02/19/2021 09/14/2021 Overview: 03/02/21- Two elevated levels on 3 hour GTT. Dx GDM. Leigha Kaye APRN.CNM 02/19/21- Elevated 1 hour GCT. 3 hour GTT ordered. Leigha Kaye APRN.CNM Elevated glucose 02/19/2021 01/25/2023 Overview: 02/19/21- Elevated 1 hour GCT. 3 hour GTT ordered. Leigha Kaye APRN.CNM Current with histo ry of spontaneous during prior 02/18/2021 09/15/19 Overview: 02/18/2021atient has a history of a miscarriage. Denies any bleeding or pain this . Quantitative hCGs have been done. TKRN Patient request for diagnostic testing 02/18/2021 09/14/2021 Overview: 02/18/2021atient desires nuchal ultrasound. Declines genetic carrier screening testing.TKRN History of chicken pox 12/24/201409/14 Pain in joint, shoulder region 11/14/2012 09/14/2021 ALLERGIC RHINITIS 01/19/2007 09/14/2021 documented as of this encounter (statuses as of 02/23/2023) [facility] History of Past illness Narrative* Problem Noted Date Diagnosed Date Resolved Date Pneumonia due to COVID-19 virus 03/17/2021 03/17/2021 COVID 03/11/2021 03/17/2021 Insulin controlled gestation al diabetes mellitus (GDM) during , antepartum 03/02/2021 09/14/2021 Insulin controlled gestation al diabetes mellitus (GDM) during 03/02/2021 02/24/20 23 Elevated glucose 02/19/2021 09/14/2021 Overview: 03/02/21- Two elevated levels on 3 hour GTT. Dx GDM. Leigha Kaye APRN.CNM 02/19/21- Elevated 1 hour GCT. 3 hour GTT ordered. Leigha Kaye APRN.CNM Elevated glucose 02/19/2021 01/25/2023 Overview: 02/19/21- Elevated 1 hour GCT. 3 hour GTT ordered. Leigha Kaye APRN.CNM Current with histo ry of spontaneous during prior 02/18/2021 09/15/19 Overview: 02/18/2021atient has a history of a miscarriage. Denies any bleeding or pain this . Quantitative hCGs have been done. TKRN Patient request for diagnostic testing 02/18/2021 09/14/2021 Overview: 02/18/2021atient desires nuchal ultrasound. Declines genetic carrier screening testing.TKRN History of chicken pox 12/24/201409/14 Pain in joint, shoulder region 11/14/2012 09/14/2021 ALLERGIC RHINITIS 01/19/2007 09/14/2021 documented as of this encounter (statuses as of 02/28/2023) [facility]09-22-[facility]21 History of Past illness Narrative* Problem Noted Date Diagnosed Date Resolved Date Pneumonia due to COVID-19 virus 03/17/2021 03/17/2021 COVID 03/11/2021 03/17/2021 Insulin controlled gestation al diabetes mellitus (GDM) during , antepartum 03/02/2021 09/14/2021 Insulin controlled gestation al diabetes mellitus (GDM) during 03/02/2021 02/24/20 23 Elevated glucose 02/19/2021 09/14/2021 Overview: 03/02/21- Two elevated levels on 3 hour GTT. Dx GDM. Leigha Kaye APRN.CNM 02/19/21- Elevated 1 hour GCT. 3 hour GTT ordered. Leigha Kaye APRN.CNM Elevated glucose 02/19/2021 01/25/2023 Overview: 02/19/21- Elevated 1 hour GCT. 3 hour GTT ordered. Leigha Kaye APRN.CNM Current with histo ry of spontaneous during prior 02/18/2021 09/15/19 Overview: 02/18/2021atient has a history of a miscarriage. Denies any bleeding or pain this . Quantitative hCGs have been done. TKRN Patient request for diagnostic testing 02/18/2021 09/14/2021 Overview: 02/18/2021atient desires nuchal ultrasound. Declines genetic carrier screening testing.TKRN History of chicken pox 12/24/201409/14 Pain in joint, shoulder region 11/14/2012 09/14/2021 ALLERGIC RHINITIS 01/19/2007 09/14/2021 documented as of this encounter (statuses as of 03/02/2023) [facility] History of Past illness Narrative* Problem Noted Date Diagnosed Date Resolved Date Pneumonia due to COVID-19 virus 03/17/2021 03/17/2021 COVID 03/11/2021 03/17/2021 Insulin controlled gestation al diabetes mellitus (GDM) during , antepartum 03/02/2021 09/14/2021 Insulin controlled gestation al diabetes mellitus (GDM) during 03/02/2021 02/24/20 23 Elevated glucose 02/19/2021 09/14/2021 Overview: 03/02/21- Two elevated levels on 3 hour GTT. Dx GDM. Leigha Kaye APRN.CNM 02/19/21- Elevated 1 hour GCT. 3 hour GTT ordered. Leigha Kaye APRN.CNM Elevated glucose 02/19/2021 01/25/2023 Overview: 02/19/21- Elevated 1 hour GCT. 3 hour GTT ordered. Leigha Kaye APRN.CNM Current with histo ry of spontaneous during prior 02/18/2021 09/15/19 Overview: 02/18/2021atient has a history of a miscarriage. Denies any bleeding or pain this . Quantitative hCGs have been done. TKRN Patient request for diagnostic testing 02/18/2021 09/14/2021 Overview: 02/18/2021atient desires nuchal ultrasound. Declines genetic carrier screening testing.TKRN History of chicken pox 12/24/201409/14 Pain in joint, shoulder region 11/14/2012 09/14/2021 ALLERGIC RHINITIS 01/19/2007 09/14/2021 documented as of this encounter (statuses as of 03/02/2023) [facility] History of Past illness Narrative* Problem Noted Date Diagnosed Date Resolved Date Pneumonia due to COVID-19 virus 03/17/2021 03/17/2021 COVID 03/11/2021 03/17/2021 Insulin controlled gestation al diabetes mellitus (GDM) during , antepartum 03/02/2021 09/14/2021 Insulin controlled gestation al diabetes mellitus (GDM) during 03/02/2021 02/24/20 23 Elevated glucose 02/19/2021 09/14/2021 Overview: 03/02/21- Two elevated levels on 3 hour GTT. Dx GDM. Leigha Kaye APRN.CNM 02/19/21- Elevated 1 hour GCT. 3 hour GTT ordered. Leigha Kaye APRN.CNM Elevated glucose 02/19/2021 01/25/2023 Overview: 02/19/21- Elevated 1 hour GCT. 3 hour GTT ordered. Leigha Kaye APRN.CNM Current with histo ry of spontaneous during prior 02/18/2021 09/15/19 Overview: 1Patient has a history of a miscarriage. Denies any bleeding or pain this . Quantitative hCGs have been done. TKRN Patient request for diagnostic testing 02/18/2021 09/14/2021 Overview: 1Patient desires nuchal ultrasound. Declines genetic carrier screening testing.TKRN History of chicken pox 12/24/201409/14 Pain in joint, shoulder region 11/14/2012 09/14/2021 ALLERGIC RHINITIS 01/19/2007 09/14/2021 documented as of this encounter (statuses as of 04/01/2023) [facility] History of Past illness Narrative* Problem Noted Date Diagnosed Date Resolved Date Pneumonia due to COVID-19 virus 03/17/2021 03/17/2021 COVID 03/11/2021 03/17/2021 Insulin controlled gestation al diabetes mellitus (GDM) during , antepartum 03/02/2021 09/14/2021 Insulin controlled gestation al diabetes mellitus (GDM) during 03/02/2021 02/24/20 23 Elevated glucose 02/19/2021 09/14/2021 Overview: 03/02/21- Two elevated levels on 3 hour GTT. Dx GDM. Leigha Kaye APRN.CNM 02/19/21- Elevated 1 hour GCT. 3 hour GTT ordered. Leigha Kaye APRN.CNM Current with histo ry of spontaneous during prior 02/18/2021 09/15/19 Overview: 02/18/2021atient has a history of a miscarriage. Denies any bleeding or pain this . Quantitative hCGs have been done. TKRN Patient request for diagnostic testing 02/18/2021 09/14/2021 Overview: 02/18/2021atient desires nuchal ultrasound. Declines genetic carrier screening testing.TKRN History of chicken pox 12/24/201409/14 Pain in joint, shoulder region 11/14/2012 09/14/2021 ALLERGIC RHINITIS 01/19/2007 09/14/2021 documented as of this encounter (statuses as of 04/18/2023) [facility] History of Past illness Narrative* Problem Noted Date Diagnosed Date Resolved Date Pneumonia due to COVID-19 virus 03/17/2021 03/17/2021 COVID 03/11/2021 03/17/2021 Insulin controlled gestation al diabetes mellitus (GDM) during , antepartum 03/02/2021 09/14/2021 Insulin controlled gestation al diabetes mellitus (GDM) during 03/02/2021 02/24/20 23 Elevated glucose 02/19/2021 09/14/2021 Overview: 03/02/21- Two elevated levels on 3 hour GTT. Dx GDM. Leigha Kaye APRN.CNM 02/19/21- Elevated 1 hour GCT. 3 hour GTT ordered. Leigha Kaye APRN.CNM Current with histo ry of spontaneous during prior 02/18/2021 09/15/19 Overview: 02/18/2021atient has a history of a miscarriage. Denies any bleeding or pain this . Quantitative hCGs have been done. TKRN Patient request for diagnostic testing 02/18/2021 09/14/2021 Overview: 02/18/2021atient desires nuchal ultrasound. Declines genetic carrier screening testing.TKRN History of chicken pox 12/24/201409/14 Pain in joint, shoulder region 11/14/2012 09/14/2021 ALLERGIC RHINITIS 01/19/2007 09/14/2021 documented as of this encounter (statuses as of 04/21/2023) [facility] History of Past illness Narrative* Problem Noted Date Diagnosed Date Resolved Date Pneumonia due to COVID-19 virus 03/17/2021 03/17/2021 COVID 03/11/2021 03/17/2021 Insulin controlled gestation al diabetes mellitus (GDM) during , antepartum 03/02/2021 09/14/2021 Insulin controlled gestation al diabetes mellitus (GDM) during 03/02/2021 02/24/20 23 Elevated glucose 02/19/2021 09/14/2021 Overview: 03/02/21- Two elevated levels on 3 hour GTT. Dx GDM. Leigha Kaye APRN.CNM 02/19/21- Elevated 1 hour GCT. 3 hour GTT ordered. Leigha Kaye APRN.CNM Current with histo ry of spontaneous during prior 02/18/2021 09/15/19 Overview: 02/18/2021atient has a history of a miscarriage. Denies any bleeding or pain this . Quantitative hCGs have been done. TKRN Patient request for diagnostic testing 02/18/2021 09/14/2021 Overview: 02/18/2021atient desires nuchal ultrasound. Declines genetic carrier screening testing.TKRN History of chicken pox 12/24/201409/14 Pain in joint, shoulder region 11/14/2012 09/14/2021 ALLERGIC RHINITIS 01/19/2007 09/14/2021 documented as of this encounter (statuses as of 04/21/2023) [facility] History of Past illness Narrative* Problem Noted Date Diagnosed Date Resolved Date Pneumonia due to COVID-19 virus 03/17/2021 03/17/2021 COVID 03/11/2021 03/17/2021 Insulin controlled gestation al diabetes mellitus (GDM) during , antepartum 03/02/2021 09/14/2021 Insulin controlled gestation al diabetes mellitus (GDM) during 03/02/2021 02/24/20 23 Elevated glucose 02/19/2021 09/14/2021 Overview: 03/02/21- Two elevated levels on 3 hour GTT. Dx GDM. Leigha Kaye APRN.CNM 02/19/21- Elevated 1 hour GCT. 3 hour GTT ordered. Leigha Kaye APRN.CNM Current with histo ry of spontaneous during prior 02/18/2021 09/15/19 Overview: 02/18/2021atient has a history of a miscarriage. Denies any bleeding or pain this . Quantitative hCGs have been done. TKRN Patient request for diagnostic testing 02/18/2021 09/14/2021 Overview: 1Patient desires nuchal ultrasound. Declines genetic carrier screening testing.TKRN History of chicken pox 12/24/201409/14 Pain in joint, shoulder region 11/14/2012 09/14/2021 ALLERGIC RHINITIS 01/19/2007 09/14/2021 documented as of this encounter (statuses as of 05/12/2023) [facility] History of Past illness Narrative* Problem Noted Date Diagnosed Date Resolved Date Pneumonia due to COVID-19 virus 03/17/2021 03/17/2021 COVID 03/11/2021 03/17/2021 Insulin controlled gestation al diabetes mellitus (GDM) during , antepartum 03/02/2021 09/14/2021 Insulin controlled gestation al diabetes mellitus (GDM) during 03/02/2021 02/24/20 Elevated glucose 02/19/2021 09/14/2021 Overview: 03/02/21- Two elevated levels on 3 hour GTT. Dx GDM. Leigha Kaye APRN.CNM 02/19/21- Elevated 1 hour GCT. 3 hour GTT ordered. Leigha Kaye APRN.CNM Current with histo ry of spontaneous during prior 02/18/2021 09/15/19 Overview: 02/18/2021atient has a history of a miscarriage. Denies any bleeding or pain this . Quantitative hCGs have been done. TKRN Patient request for diagnostic testing 02/18/2021 09/14/2021 Overview: 02/18/2021atient desires nuchal ultrasound. Declines genetic carrier screening testing.TKRN History of chicken pox 12/24/201409/14 Pain in joint, shoulder region 11/14/2012 09/14/2021 ALLERGIC RHINITIS 01/19/2007 09/14/2021 documented as of this encounter (statuses as of 06/16/2023) [facility]09-21-2021 NoteHNO ID: [id number] Author: Wilbert Ortega MD Service: Hospital Medicine Author Type: Physician Type: Progress Notes Filed: 03/16/2021 4:14 PM Note Text: DEPARTMENT OF HOSPITAL MEDICINE PROGRESS NOTE SERVICE DATE: 03/16/2021 SERVICE TIME: 4:10 PM Hospital Medicine/Primary Attending: Wilbert Ortega MD NIGHT AND WEEKEND COVERAGE: KULA COVERAGE: Days: [phone], please page attending physician. Nights: [phone], please page [facility] Night coverage pager [phone]. Subjective Subjective Patient slowly improving, today oxygen requirement is down to 2 L MEDICATIONS: Reviewed Objective Physical Exam Performed Objective BP 87/48 Pulse 76 Temp (Src) 97.7 (Oral) Resp 18 Ht 5' 8 (1.73m) Wt 236 lb 1.8 oz (107.1kg) SpO2 95% LMP 12/06/2020 BMI 35.91 kg/(m2). O2 Therapy: Nasal Cannula, Liters: 2.00 General : No distress , alert and oriented Oral : oral mucosa moist, no ulcers Eyes: PERRLA Neck - no JVD Respiratory : b/l equal breath sounds CVS - S1,S2 normal , no murmer heard Abdomen :soft non tender, BS active Extremities : no leg edema Neuro : grossly normal cognition, no motor or sensory deficit Pulses - 2+ radial, 2+carotid Lines, Drains, and Airways Line Peripheral 03/11/21 Right Antecubital 20 Gauge 5 days Reviewed lines and needs to be continued: REASONS: Telemetry DATA: Diagnostic tests reviewed for today's visit: Most recent labs Assessment/Plan Active Problems: Covid 19 with bilateral pneumonia -DC Rocephin, azithromycin, remdesivir after 5 days of therapy -covid precautions -ID following -Inflammatory markers including procalcitonin and CRP trended down. -Oxygen supplementation came down to 2 L via nasal cannula from eight 7 to 8 L yesterday -Continue with dexamethasone ? ACUTE hypoxic respiratory failure?- 2/2 to COVID pneumonia Continue with oxygen supplementation as needed to keep saturation>95% ? 13 week IUP - spoke with OB clinical applications manager and reviewed all medications - patient does not have any abdominal pain, vaginal discharge or bleeding. ? ? H/o gestational diabetes -monitor bs on steroids -cover with ssi ?Resolved Problems: * No resolved hospital problems. * Medication and Non-Pharmacologic VTE Prophylaxis/Anticoagulants Anticoagulant AND Antiplatelet Medications (From admission, onward) enox 40 BID standard pro for >100kg Last edited by Karla Dubois RPh on 03/15/21 at 1339 Start Dose Route Frequency Last Action Ordered Stop 03/13/21 2100 enoxaparin 40 mg injection (LOVENOX) (enoxaparin injection (LOVENOX)) 40 mg SUBCUTANEOUS EVERY 12 HOURS Given, 03/16 0903/13/21 1222 -- 03/11/215 vte non-pharmacologic prophylaxis - none indicated (fl,oh) VTE Prophylaxis: VTE prophylaxis appropriate Disposition: To be determined Plan of care discussed with: Patient SIGNATURE: Wilbert Ortega MD PATIENT NAME: Tomeka Sanchez DATE: March 16, 2021 TIME: 4:10 PM PAGER/CONTACT #: [phone] [id number] NoteHNO ID: [id number] Author: Wilbert Ortega MD Service: Hospital Medicine Author Type: Physician Type: Progress Notes Filed: 03/15/2021 1:39 PM Note Text: DEPARTMENT OF HOSPITAL MEDICINE PROGRESS NOTE SERVICE DATE: 03/15/2021 SERVICE TIME: 1:37 PM Hospital Medicine/Primary Attending: Wilbert Ortega MD NIGHT AND WEEKEND COVERAGE: KULA COVERAGE: : [phone], please page attending physician. Nights: [phone], please page [facility] Night coverage pager [phone]. Subjective Subjective patient subjectively feels well, saturating more than 97% on 8 L, will try to wean to 6 L MEDICATIONS: Reviewed Objective Physical Exam Performed Objective BP 105/59 Pulse 75 Temp (Src) 97.7 (Oral) Resp 22 Ht 5' 8 (1.73m) Wt 236 lb 1.8 oz (107.1kg) SpO2 100% LMP 12/06/2020 BMI 35.91 kg/(m2). O2 Therapy: Nasal Cannula, Liters: 7.00 General : No distress , alert and oriented Oral : oral mucosa moist, no ulcers Eyes: PERRLA Neck - no JVD Respiratory : b/l crackles lung cannon CVS - S1,S2 normal , no murmer heard Abdomen :soft non tender, BS active Extremities : no leg edema Neuro : grossly normal cognition, no motor or sensory deficit Pulses - 2+ radial, 2+carotid Lines, Drains, and Airways Line Peripheral 03/11/21 Right Antecubital 20 Gauge 4 days Reviewed lines and needs to be continued: REASONS: Telemetry DATA: Diagnostic tests reviewed for today's visit: Most recent labs Assessment/Plan Active Problems: Covid 19 with bilateral pneumonia -iv decadron remdesevir and albuterol -rocephin and zmax -covid precautions -ID following -Inflammatory markers including procalcitonin and CRP trended down. ? ACUTE hypoxic respiratory failure - 2/2 to COVID pneumonia Continue with oxygen supplementation as needed to keep saturation>95% ? 13 week IUP - spoke with OB clinical applications manager and reviewed all medications - patient does not have any abdominal pain, vaginal discharge or bleeding. ? ? H/o gestational diabetes -monitor bs on steroids -cover with ssi ?Resolved Problems: * No resolved hospital problems. * Medication and Non-Pharmacologic VTE Prophylaxis/Anticoagulants Anticoagulant AND Antiplatelet Medications (From admission, onward) Start Dose Route Frequency Last Action Ordered Stop 03/13/21 2100 enoxaparin 40 mg injection (LOVENOX) (enoxaparin injection (LOVENOX)) 40 mg SUBCUTANEOUS EVERY 12 HOURS Given, 03/15 0916 03/13/21 1222 -- 03/11/212114 vte non-pharmacologic prophylaxis - none indicated (wa,oh) VTE Prophylaxis: VTE prophylaxis appropriate Disposition: To be determined Plan of care discussed with: Patient SIGNATURE: Wilbert Ortega MD PATIENT NAME: Tomeka Sanchez DATE: March 15, 2021 TIME: 1:37 PM PAGER/CONTACT #: [phone] [facility] [id number] NoteHNO ID: [id number] Author: Wilbert Ortega MD Service: Hospital Medicine Author Type: Physician Type: Progress Notes Filed: 03/14/2021 11:35 AM Note Text: DEPARTMENT OF HOSPITAL MEDICINE PROGRESS NOTE SERVICE DATE: 03/14/2021 SERVICE TIME: 11:32 AM Hospital Medicine/Primary Attending: Wilbert Ortega MD NIGHT AND WEEKEND COVERAGE: KULA COVERAGE: Days: [phone], please page attending physician. Nights: [phone], please page [facility] Night coverage pager [phone]. Subjective Subjective patient subjectively feels the same in regards to her shortness of breath, she is tired and fatigued Cough is present as well Patient is still requiring 8 L oxygen via nasal cannula MEDICATIONS: Reviewed Objective Physical Exam Performed Objective General : No distress , alert and oriented Oral : oral mucosa moist, no ulcers Eyes: PERRLA Neck - no JVD Respiratory : b/l crackles lung cannon CVS - S1,S2 normal , no murmer heard Abdomen :soft non tender, BS active Extremities : no leg edema Neuro : grossly normal cognition, no motor or sensory deficit Pulses - 2+ radial, 2+carotid Lines, Drains, and Airways Line Peripheral 03/11/21 Right Antecubital 20 Gauge 3 days Reviewed lines and needs to be continued: REASONS: Telemetry DATA: Diagnostic tests reviewed for today's visit: Most recent labs Assessment/Plan Active Problems: Tomeka Sanchez is a 30 year old female? with 13 weeks admitted with COVID pneumonia. ? Active Problems: Covid 19 with bilateral pneumonia -iv decadron remdesevir and albuterol -rocephin and zmax -covid precautions -ID following -Inflammatory markers including procalcitonin and CRP trended down. ? ACUTE hypoxic respiratory failure - 2/2 to COVID pneumonia Continue with oxygen supplementation as needed to keep saturation>95% ? 13 week IUP - spoke with OB clinical applications manager and reviewed all medications - patient does not have any abdominal pain, vaginal discharge or bleeding. ? ? H/o gestational diabetes -monitor bs on steroids -cover with ssi ? ? ? Resolved Problems: * No resolved hospital problems. * ? ? Medication and Non-Pharmacologic VTE Prophylaxis/Anticoagulants Anticoagulant AND Antiplatelet Medications (From admission, onward) Start Dose Route Frequency Last Action Ordered Stop 03/13/21 2100 enoxaparin 40 mg injection (LOVENOX) (enoxaparin injection (LOVENOX)) 40 mg SUBCUTANEOUS EVERY 12 HOURS Given, 03/14 0951 03/13/21 1222 -- 03/11/21 2115 vte non-pharmacologic prophylaxis - none indicated (wa,oh) VTE Prophylaxis: VTE prophylaxis appropriate Disposition: To be determined Plan of care discussed with: Patient SIGNATURE: Wilbert Ortega MD PATIENT NAME: Tomeka Sanchez DATE: March 14, 2021 TIME: 11:32 AM PAGER/CONTACT #: [phone] [facility] [id number] NoteHNO ID: [id number] Author: Wilbert Ortega MD Service: Hospital Medicine Author Type: Physician Type: Progress Notes Filed: 03/13/2021 3:20 PM Note Text: DEPARTMENT OF HOSPITAL MEDICINE PROGRESS NOTE SERVICE DATE: 03/13/2021 SERVICE TIME: 2:54 PM Hospital Medicine/Primary Attending: Wilbetr Ortega MD NIGHT AND WEEKEND COVERAGE: KULA COVERAGE: Days: [phone], please page attending physician. Nights: [phone], please page [facility] Night coverage pager [phone]. Subjective Subjective Patient has increased oxygen requirements upto 8l She symptomatically feel better MEDICATIONS: Reviewed Objective Physical Exam Performed Objective BP 117/73 Pulse 75 Temp (Src) 98.1 (Oral) Resp 22 Ht 5' 8 (1.73m) Wt 236 lb 1.8 oz (107.1kg) SpO2 97% LMP 12/06/2020 BMI 35.91 kg/(m2). O2 Therapy: Nasal Cannula-Humidified (7-15 LPM), Liters: 6.00, %FIO2: 8 General : No distress , alert and oriented Oral : oral mucosa moist, no ulcers Eyes: PERRLA Neck - no JVD Respiratory : b/l crackles present CVS - S1,S2 normal , no murmer heard Abdomen :soft non tender, BS active Extremities : no leg edema Neuro : grossly normal cognition, no motor or sensory deficit Pulses - 2+ radial, 2+carotid Lines, Drains, and Airways Line Peripheral 03/11/21 Right Antecubital 20 Gauge 2 days Reviewed lines and needs to be continued: REASONS: Telemetry DATA: Diagnostic tests reviewed for today's visit: Most recent labs Assessment/Plan Active Problems: Tomeka Sanchez is a 30 year old female with 13 weeks admitted with COVID pneumonia. ? Active Problems: Covid 19 with bilateral pneumonia -iv decadron remdesevir and albuterol -rocephin and zmax -covid precautions -ID following - follow up on inflammatory markers ACUTE hypoxic respiratory failure - 2/2 to COVID pneumonia Continue with oxygen supplementation as needed to keep saturation>95% ? 13 week IUP - spoke with OB clinical applications manager and reviewed all medications - patient does not have any abdominal pain, vaginal discharge or bleeding. ? H/o gestational diabetes -monitor bs on steroids -cover with ssi ? Resolved Problems: * No resolved hospital problems. * Medication and Non-Pharmacologic VTE Prophylaxis/Anticoagulants Anticoagulant AND Antiplatelet Medications (From admission, onward) Start Dose Route Frequency Last Action Ordered Stop 03/13/212099 enoxaparin 40 mg injection (LOVENOX) (enoxaparin injection (LOVENOX)) 40 mg SUBCUTANEOUS EVERY 12 HOURS Ordered 03/13/21 1222 -- 03/11/212114 vte non-pharmacologic prophylaxis - none indicated (fl,oh) VTE Prophylaxis: VTE prophylaxis appropriate Disposition: To be determined Plan of care discussed with: Patient SIGNATURE: Wilbert Ortega MD PATIENT NAME: Tomeka Sanchez DATE: March 13, 2021 TIME: 2:54 PM PAGER/CONTACT #: [phone] Memorial [id number] NoteHNO ID: [id number] Author: Candace Goodson MD Service: Hospital Medicine Author Type: Physician Type: Progress Notes Filed: 03/12/2021 10:39 PM Note Text: DEPARTMENT OF HOSPITAL MEDICINE PROGRESS NOTE SERVICE DATE: 03/12/2021 SERVICE TIME: 10:35 PM Hospital Medicine/Primary Attending: Candace Goodson MD NIGHT AND WEEKEND COVERAGE: KULA COVERAGE: Days: [phone], please page attending physician. Nights: [phone], please page [facility] Night coverage pager [phone]. Subjective INTERVAL HPI: Patient is feeling better when started on O2 supplementation and requiring higher level of O2. No f/c/n/v. Started on Remdesivir and Dexa. ID follows. Current Facility-Administered Medications Medication Dose Route Frequency - therapeutic multivitamin-minerals tablet (THERA-M PLUS) 1 tablet ORAL DAILY - heparin 5,000 Units injection 5,000 Units SUBCUTANEOUS q 12 H - NaCl 0.9% iv flush bag 20 mL INTRAVENOUS PRN - sodium chloride 0.9 % (flush) 3-5 mL (BD POSIFLUSH) 3-5 mL INTRAVENOUS q 12 H - sodium chloride 0.9 % (flush) 2-10 mL (BD POSIFLUSH) 2-10 mL INTRAVENOUS q 12 H - remdesivir 100 mg in NaCl 0.9% 250 mL Vial-Mate/ADD-[place] 100 mg INTRAVENOUS q 24 HR - dexAMETHasone 6 mg tab(s) (DECADRON) 6 mg ORAL DAILY Or - dexAMETHasone sodium phosphate (PF) 6 mg injection (DECADRON) 6 mg INTRAVENOUS DAILY - aluminum-magnesium hydroxide-simethicone 200-200-20 mg/5 mL 30 mL (MAALOX,MYLANTA,MAG-AL PLUS) 30 mL ORAL DAILY PRN - docusate sodium 100 mg cap(s) (COLACE) 100 mg ORAL BID PRN - magnesium hydroxide 400 mg/5 mL 30 mL (MOM) 30 mL ORAL DAILY PRN - acetaminophen 650 mg tab(s) (TYLENOL) 650 mg ORAL q 6 H PRN - cefTRIAXone 1 g in D5W 100 mL MB+ (ROCEPHIN) 1 g INTRAVENOUS q 24 H - azithromycin 500 mg tab(s) (ZITHROMAX) 500 mg ORAL DAILY - albuterol HFA 90 mcg/actuation 2 Puff (PROVENTIL HFA, VENTOLIN HFA) 2 Puff INHALATION q 4 H PRN - dextrose 40 % 15 g 15 g ORAL PRN Or - glucagon 1 mg injection 1 mg INTRAMUSCULAR PRN Or - dextrose 50% in water 25 mL syringe 12.5 g INTRAVENOUS PRN - insulin lispro injection (rapid acting) (HumaLOG) SUBCUTANEOUS AT BEDTIME - insulin lispro injection (rapid acting) (HumaLOG) SUBCUTANEOUS w MEALS Objective PHYSICAL EXAM: BP 118/46 Pulse 78 Temp (Src) 97.7 (Oral) Resp 16 Ht 5' 8 (1.73m) Wt 236 lb 1.8 oz (107.1kg) SpO2 94% LMP 12/06/2020 BMI 35.91 kg/(m2). O2 Therapy: Nasal Cannula, Liters: 6.00 Physical Exam Performed GENERAL: Alert, no distress, cooperative, Obese SKIN: Skin color, texture, turgor normal. No rashes or lesions. HEAD/SINUSES: No significant findings EYES: PERRLA, EOMI LUNGS: Lungs clear to auscultation, Good diaphragmatic excursion CARDIAC: Normal S1 and S2; no rubs, murmurs, or gallops ABDOMEN: Abdomen soft, non-tender, BS normal, No masses or organomegaly EXTREMITIES: Extremities normal, no deformities, edema, clubbing or skin discoloration. Good capillary refill., No ulcers NEURO: Cranial nerves II-XII intact PULSES: 2+ radial, 2+ carotid Lines, Drains, and Airways Line Peripheral 03/11/21 Right Antecubital 20 Gauge 1 day Reviewed lines and needs to be continued: REASONS: Intravenous antibiotics DATA: Diagnostic tests reviewed for today's visit: 02 Requirement on Arrival: O2 Therapy: Room Air, Liters: 2, %FIO2: (2L NC) 02 Requirement Now: O2 Therapy: Nasal Cannula, Liters: 6.00 CXRAY: Positive EKG Changes on Arrival: Negative No results found for: COVNP Albumin (g/dL) Date Value 03/12/2021 3.3 03/11/2021 3.8 ALT (U/L) Date Value 03/12/2021 43 03/11/2021 53 AST (U/L) Date Value 03/12/2021 40 03/11/2021 55 Lactate (mmol/L) Date Value 03/12/2021 2.5 CRP (mg/dL) Date Value 03/11/2021 12.7 WBC (k/uL) Date Value 03/12/2021 3.29 03/11/2021 5.87 02/18/2021 12.13 Lymph% (%) Date Value 03/12/2021 12.0 03/11/2021 24.0 04/05/2018 27.6 Abs Lymph (k/uL) Date Value 03/12/2021 0.39 03/11/2021 1.41 04/05/2018 3.00 ODESSA High Sensitivity Date Value Ref Range Status 03/11/2021 <6 <12 ng/L Final Assessment/Plan Problem List COVID POA: Yes HOSPITAL COURSE: Tomeka Sanchez is a 30 year old female who was diagnosed with covid last Monday. She states that since then she has had worsening sob. She is very sob just at rest and dropping her sats with exertion. She is 13 wk . She denies any vaginal bleeding or abdominal pain. She is non vaccinated. Her had covid earlier this year. He has been fine now. She is a G2PO AB 1. Her CXR showed bilateral pneumonia. Her d dimer is slightly elevated at 610. She is currently on 2 liters of o2 via nc. She was started on antibiotics and decadron as well as remdesevir. ID consult and OBGYN. Active Problems: Covid 19 with bilateral pneumonia -admit to med floor -iv decadron remdesevir and albuterol -rocephin and zmax -covid precautions -consult ID ? 13 week IUP (more content not included)...[facility] for wound check- Primary Encounter for other specified aftercare [facility] Diagnosis care and examination- Primary Routine follow-up Encounter for screening for malignant neoplasm of cervix Screening for malignant neoplasm of the cervix History of gestational diabetes in prior , currently with other poor obstetric history [facility] Diagnosis with uncertain dates, antepartum- Primary state, incidental [facility] Diagnosis with uncertain dates, antepartum- Primary state, incidental History of gestational diabetes in prior , currently with other poor obstetric history Encounter for supervision of normal in multigravida Encounter for screening for malignant neoplasm of cervix Screening for malignant neoplasm of the cervix Special screening examination for human papillomavirus (HPV) Rh negative state in antepartum period Rhesus isoimmunization affecting management of mother, antepartum condition Obesity in Obesity complicating , childbirth, or the puerperium, unspecified as to episode of care or not applicable [facility] Diagnosis Obesity in - Primary Obesity complicating , childbirth, or the puerperium, unspecified as to episode of care or not applicable 11 weeks gestation of state, incidental Vaginal irritation Unspecified noninflammatory disorder of vagina H/O section Other postprocedural status [facility]* Diagnosis Encounter for screening of mother- Primary Unspecified screening [facility] Diagnosis Encounter for (NT) nuchal translucency scan- Primary Other specified screening 12 weeks gestation of state, incidental [facility]* Diagnosis History of gestational diabetes in prior , currently - Primary with other poor obstetric history 16 weeks gestation of state, incidental Rh negative state in antepartum period, second trimester Obesity affecting in second trimester, unspecified obesity type Encounter for anatomic survey Tension headache [facility]* Diagnosis History of gestational diabetes in prior , currently - Primary with other poor obstetric history [facility] Diagnosis H/O section- Primary Other postprocedural status Encounter for supervision of normal in second trimester, unspecified 19 weeks gestation of state, incidental Tension headache History of gestational diabetes Personal history of gestational diabetes Rh negative state in antepartum period Rhesus isoimmunization affecting management of mother, antepartum condition Obesity affecting in second trimester, unspecified obesity type Need for MMR vaccine Need for prophylactic vaccination with tbwiyld-deeqm-mawtgwx (MMR) vaccine [facility] Diagnosis Encounter for anatomic survey- Primary Obesity in Obesity complicating , childbirth, or the puerperium, unspecified as to episode of care or not applicable Obesity affecting in second trimester, unspecified obesity type 19 weeks gestation of state, incidental [facility]* Diagnosis Elevated fasting blood sugar- Primary Impaired fasting glucose documented in this encounter [facility] for referral (narrative)* Diagnostic Procedure Only (Routine) - Pending Review Specialty Diagnoses / Procedures Referred By Gianna t Referred To Contact [facility] Diagnoses with uncertain dates, antepartum Procedures NUCHAL TRANSLUCENCY WHI US NUCHAL TRANSLUCENCY 1ST GESTATION Juliana Puente APRN.CNP [address] [place] [address] [facility] [place] [address] [place] [id number] Referral ID Status Reason Start Date Expiration Date Visits Requested Visits Authorized [id number] Pending Review Auto-Generat ed Referral 01/25/2023 01/25/2024 1 1 [facility] for referral (narrative)* Diagnostic Procedure Only (Routine) - Pending Review Specialty Diagnoses / Procedures Referred By Contac t Referred To Contact [facility] Diagnoses Obesity in Procedures OBSTETRIC ULTRASOUND WHI US PREG UTERUS AFTER 1ST TRIMEST GESTATION Yenni Catalan MD [address] [place] [address] [facility] [place] [address] [place] [address] Referral ID Status Reason Start Date Expiration Date Visits Requested Visits Authorized [id number] Pending Review Auto-Generat ed Referral 02/23/2023 02/23/2024 1 1 [facility] Summary Purpose Family History No Family History Records FoundNo Family History Records Found Advance Directives No Advanced Directives Records FoundDocuments on File Type Date Recorded Patient Soakers Supervisor Expl anation Advance Directive(s) 03/11/2021 6:09 PM Advance Directive(s) 07/16/2020 7:02 AM Health Concerns Problem Noted Date Diagnosed Date [facility] - [facility] 01/25/2023 Education - [place] 01/25/2023 Problem Noted Date Diagnosed Date [facility] - [facility] 01/25/2023 Education - [place] 01/25/2023 Problem Noted Date Diagnosed Date [facility] - [facility] 01/25/2023 Education - [place] 01/25/2023 Problem Noted Date Diagnosed Date [facility] - [facility] 01/25/2023 Education - [place] 01/25/2023 Problem Noted Date Diagnosed Date [facility] - [facility] 01/25/2023 Education - [place] 01/25/2023 Problem Noted Date Diagnosed Date [facility] - [facility] 01/25/2023 Education - [place] 01/25/2023 Problem Noted Date Diagnosed Date [facility] - [facility] 01/25/2023 Education - [place] 01/25/2023 Problem Noted Date Diagnosed Date [facility] - [facility] 01/25/2023 Education - [place] 01/25/2023 Problem Noted Date Diagnosed Date [facility] - [facility] 01/25/2023 Education - [place] 01/25/2023 Problem Noted Date Diagnosed Date [facility] - [facility] 01/25/2023 Education - [place] 01/25/2023 Problem Noted Date Diagnosed Date [facility] - [facility] 01/25/2023 Education - [place] 01/25/2023 Additional Source Comments INFORMATION SOURCE (unrecogn ized section and content) DATE CREATED AUTHOR AUTHOR'S ORGANIZ ATION 06/28/2023 [facility] Source Comments (unrecognize d section and content) In the event this informatio n is protected by the Federal Confidentiality of Alcohol and Drug Abuse Patient Records regulations: The Federal rules restrict any use of the information to criminally investigate or prosecute any alcohol or drug abuse patient.[facility] the event this information is protected by the Federal Confidentiality of Alcohol and Drug Abuse Patient Records regulations: The Federal rules restrict any use of the information to criminally investigate or prosecute any alcohol or drug abuse patient.[facility] the event this information is protected by the Federal Confidentiality of Alcohol and Drug Abuse Patient Records regulations: The Federal rules restrict any use of the information to criminally investigate or prosecute any alcohol or drug abuse patient.[facility] the event this information is protected by the Federal Confidentiality of Alcohol and Drug Abuse Patient Records regulations: The Federal rules restrict any use of the information to criminally investigate or prosecute any alcohol or drug abuse patient.[facility] the event this information is protected by the Federal Confidentiality of Alcohol and Drug Abuse Patient Records regulations: The Federal rules restrict any use of the information to criminally investigate or prosecute any alcohol or drug abuse patient.[facility] the event this information is protected by the Federal Confidentiality of Alcohol and Drug Abuse Patient Records regulations: The Federal rules restrict any use of the information to criminally investigate or prosecute any alcohol or drug abuse patient.[facility] the event this information is protected by the Federal Confidentiality of Alcohol and Drug Abuse Patient Records regulations: The Federal rules restrict any use of the information to criminally investigate or prosecute any alcohol or drug abuse patient.[facility] the event this information is protected by the Federal Confidentiality of Alcohol and Drug Abuse Patient Records regulations: The Federal rules restrict any use of the information to criminally investigate or prosecute any alcohol or drug abuse patient.[facility] the event this information is protected by the Federal Confidentiality of Alcohol and Drug Abuse Patient Records regulations: The Federal rules restrict any use of the information to criminally investigate or prosecute any alcohol or drug abuse patient.[facility] the event this information is protected by the Federal Confidentiality of Alcohol and Drug Abuse Patient Records regulations: The Federal rules restrict any use of the information to criminally investigate or prosecute any alcohol or drug abuse patient.[facility] the event this information is protected by the Federal Confidentiality of Alcohol and Drug Abuse Patient Records regulations: The Federal rules restrict any use of the information to criminally investigate or prosecute any alcohol or drug abuse patient.[facility] Hospital[facility] the event this information is protected by the Federal Confidentiality of Alcohol and Drug Abuse Patient Records regulations: The Federal rules restrict any use of the information to criminally investigate or prosecute any alcohol or drug abuse patient.[facility] the event this information is protected by the Federal Confidentiality of Alcohol and Drug Abuse Patient Records regulations: The Federal rules restrict any use of the information to criminally investigate or prosecute any alcohol or drug abuse patient.[facility] Hospital[facility] the event this information is protected by the Federal Confidentiality of Alcohol and Drug Abuse Patient Records regulations: The Federal rules restrict any use of the information to criminally investigate or prosecute any alcohol or drug abuse patient.[facility] Care Teams (unrecognized sec tion and content) Hairspring I Inspector Relationship Specialty Start Date End Date Jose M Cabrales MD [address] [place] [address] PCP - General 10/03/00 Hairspring I Inspector Relationship Specialty Start Date End Date Jose M Cabrales MD [address] [place] [address] PCP - General 10/03/00 Hairspring I Inspector Relationship Specialty Start Date End Date Jose M Cabrales MD [address] [place] [address] PCP - General 10/03/00 Hairspring I Inspector Relationship Specialty Start Date End Date Jose M Cabrales MD [address] [place] [address] PCP - General 10/03/00 Hairspring I Inspector Relationship Specialty Start Date End Date Jose M Cabrales MD [address] [place] [address] PCP - General 10/03/00 Hairspring I Inspector Relationship Specialty Start Date End Date Jose M Cabrales MD [address] [place] [id number] PCP - General 10/03/00 Hairspring I Inspector Relationship Specialty Start Date End Date Jose M Cabrales MD [address] [place] [id number] PCP - General 10/03/00 Hairspring I Inspector Relationship Specialty Start Date End Date Jose M Cabrales MD [address] [place] [address] PCP - General 10/03/00 Hairspring I Inspector Relationship Specialty Start Date End Date Jose M Cabrales MD [address] [place] [address] PCP - General 10/03/00 Hairspring I Inspector Relationship Specialty Start Date End Date Jose M Cabrales MD [address] [place] [id number] PCP - General 10/03/00 Hairspring I Inspector Relationship Specialty Start Date End Date Jose M Cabrales MD [address] [place] [address] PCP - General 10/03/00 Hairspring I Inspector Relationship Specialty Start Date End Date Jose M Cabrales MD [address] [place] [id number] PCP - General 10/03/00 Reason for Visit (unrecogniz ed section and content) Reason Onset Date Comments Care 02/23/2023 Reason Comments US Specialty Diagnoses / Procedures Referred By Contsilvana t [facility] Diagnoses with uncertain dates, antepartum Procedures NUCHAL TRANSLUCENCY WHI US NUCHAL TRANSLUCENCY 1ST GESTATION Juliana Puente APRN.DESKTOP SUPPORT SPECIALIST [address] [place] [address] [facility] [place] [address] [place] [address] Referral ID Status Reason Start Date Expiration Date V isits Requested Visits Authorized [id number] Closed Auto-Generate d Referral 01/25/2023 01/25/2024 1 1 Reason Onset Date Comments Care 03/30/2023 Reason Onset Date Comments Care 04/21/2023 Specialty Diagnoses / Procedures Referred By Contac t Referred To Contact [facility] Diagnoses Obesity in Procedures OBSTETRIC ULTRASOUND WHI US PREG UTERUS AFTER 1ST TRIMEST GESTATION Yenni Catalan MD [address] [place] [address] [address] Referral ID Status Reason Start Date Expiration Date V isits Requested Visits Authorized [id number] Closed Auto-Generate d Referral 04/21/2023 06/25/2023 1 1 Reason Comments Results FOR RECORDS PERTAINING TO PATIENTS WHO ARE OR HAVE BEEN ENROLLED IN A CHEMICAL DEPENDENCY/SUBSTANCEABUSE PROGRAM, SOME INFORMATION MAY BE OMITTED. This clinical summary was aggregated from multiple sources. Caution should be exercised in using it in the provision of clinical care. This summary normalizes information from multiple sources, and as a consequence, information in this document may materially change the coding, format and clinical context of patient data. In addition, data may be omitted in some cases. CLINICAL DECISIONS SHOULD BE BASED ON THE PRIMARY CLINICAL RECORDS. [employer] [facility]. provides no warranty or guarantee of the accuracy or completeness of information in this document.
[2023-07-03 16:31] LABS: Bacteria RARE /hpf (None Seen); Red Blood Cells-Urine 50-100 SEEN /hpf (0-5); Squamous Epithelial Cells - UA 25-50 SEEN /hpf (5-10); White Blood Cells 0-5 SEEN /hpf (0-5)
--- NOTE | 2023-07-07 16:35 | OB.TRI.PN_ITS ---
Progress Notes Progress Note: presents at 34w5d with back pain. Laboratory Studies: Laboratory Tests 07/03/23 Range/Units 15:05 Urine Color Yellow (Yellow) Urine Clarity Cloudy (Clear) Urine pH 6.0 (5.0 - 8.0) Ur Specific [place] 1.020 (1.002-1.030) Urine Protein 15 H (Negative) mg/dl Urine Glucose (UA) Normal (Normal) mg/dl Urine Ketones Negative (Negative) mg/dl Urine Occult Blood 250 H (Negative) /ul Urine Nitrite Negative (Negative) Urine Bilirubin Negative (Negative) mg/dL Urine Urobilinogen Normal (Normal) mg/dl Ur Leukocyte Esterase 500 H (Negative) /ul Urine RBC 50-100 SEEN (0-5) /hpf Urine WBC 0-5 SEEN (0-5) /hpf Ur Squamous Epith Cells 25-50 SEEN (5-10) /hpf Urine Bacteria RARE (None Seen) /hpf Urine Mucus 0 SEEN (<or=2+) /hpf NST 135, moderate variability, accels, variable decel, reactive Assessment & Plan (1) Back pain affecting : PLAN: Plan Urine culture sent No signs of PTL D/C home, follow up in office
== END 2023-07-03 16:25 | disposition home or self-care (01) ==
LOC: WPOUT 14:53 → WP 14:54
PROVIDERS: PCP Family Medicine; Referring Provider Advanced Practice Midwife; Visit Provider Advanced Practice Midwife
DX: O99.891 Other specified diseases and conditions complicating pregnancy (principal); M54.9 Dorsalgia, unspecified; Z3A.34 34 weeks gestation of pregnancy
CPT/HCPCS: 59025; 59050; 81001; 87086

== ENCOUNTER 2023-09-01 09:00 | Inpatient (IN) | payer OTHER, SELFPAY ==
[2023-07-03 15:05] VITALS: RESP 18
[2023-09-01] VITALS (21 sets, daily range): BP systolic 95–129; BP diastolic 49–77; PULSE 72–96; RESP 14–20; TEMP 36.1–36.5; O2SAT 97–100; BMI 42.0
[2023-09-01] MEDS: Lactated Ringers 1,000 ML 999 ML IV (09:20)
--- OUTSIDE RECORDS SUMMARY | 2023-09-01 09:52 | XMS RPT_ITS | CCD ---
Author Name Unknown Address [address] [place] [address] Organization [facility] Care Team Providers Care Career Counselor Name Role Phone Jose M Cabrales MD Primary Care Provider JULIANA PUENTE Referring Unavailable CABRALES, JOSE M A Primary Care Unavailable REYES ARRIETA Attending Unavail able JULIANA PUENTE Referring Unavailable CABRALES, JOSE M A Primary Care Unavailable YENNI CATALAN Attending Unavailable CABRALES, JOSE M A Primary Care Unavailable JULIANA PUENTE Attending Unavailable CABRALES, JOSE M A Primary Care Unavailable CABRALES, JOSE M A Primary Care Unavailable ALAYNA, KARMON Referring Unavailable CABRALES, JOSE M A Primary Care Unavailable ALAYNA, KARMON Referring Unavailable REYES ARRIETA Attending Unavail able YENNI CATALAN Attending Unavailable CABRALES, JOSE M A Primary Care Unavailable CABRALES, JOSE M A Primary Care Unavailable YENNI CATALAN Attending Unavailable CABRALES, JOSE M A Primary Care Unavailable ALAYNA, KARMON Referring Unavailable CABRALES, JOSE M A Primary Care Unavailable YENNI CATALAN Attending Unavailable CABRALES, JOSE M A Primary Care Unavailable YENNI CATALAN Attending Unavailable CABRALES, JOSE M A Primary Care Unavailable ALAYNA KARMON Referring Unavailable ALAYNA, KARMON Referring Unavailable CABRALES, JOSE M A Primary Care Unavailable CABRALES, JOSE M A Primary Care Unavailable LEIGHA COLLADO Attending Unavailable ALAYNA KARMON Referring Unavailable YENNI CATALAN Attending Unavailable CABRALES, JOSE M A Primary Care Unavailable ALIZA STOREY Attending Unavailable ALAYNA, KARMON Referring Unavailable CABRALES, JOSE M A Primary Care Unavailable SELF Referring Unavailable CABRALES, JOSE M A Primary Care Unavailable SELF Referring Unavailable YENNI CATALAN Attending Unavailable CABRALES, JOSE M A Primary Care Unavailable JULIANA PUENTE Referring Unavailable CABRALES, JOSE M A Primary Care Unavailable CABRALES, JOSE M A Primary Care Unavailable ALIZA STOREY Referring Unavailable YENNI CATALAN Attending Unavailable CABRALES, JOSE M A Primary Care Unavailable HAURY, CANDACE Referring Unavailable JOSE M CABRALES Primary Care Unavailable JOSE M CABRALES Primary Care Unavailable YENNI CATALAN Attending Unavailable YENNI CATALAN Referring Unavailable JOSE M CABRALES Primary Care Unavailable Medications Completed/Discontinued Medications Medication Drug Class(es) Dates Sig (Normalized) Sig (Original) Acetaminophen (2 sources) End: 10-19-2021 acetaminophen (TYLENOL ORAL) Take by mouth. 0 10/19/2021 Discontinued Problems Active Problems Problem Classification Problem Date Documented Date Episodic/Chronic Diabetes mellitus without complication (13 sources) Increased glucose level; Translations: [Other abnormal glucose] Onset: 02-19-2021 04-18-2023 Episodic Headache; including migraine (14 sources) Tension-type headache; Translations: [Tension-type headache, unspecified, not intractable] Onset: 03-30-2023 03-30-2023 Chronic Other aftercare (1 source) Wound finding; Translations: [Encounter for other specified aftercare] Episodic Other complications of (11 sources) Obesity; Translations: [Obesity complicating , unspecified trimester] Onset: 02-18-2021 01-25-2023 Chronic Other complications of (19 sources) Maternal obesity complicating , childbirth and the puerperium, antepartum; Translations: [Obesity complicating , second trimester] Onset: 02-18-2021 03-30-2023 Chronic Other complications of (1 source) Obesity complicating , third trimester; Translations: [Obesity affecting in third trimester, unspecified obesity type] Onset: 08-11-2023 Chronic Other complications of (1 source) Obesity complicating , unspecified trimester; Translations: [Obesity in ] Onset: 07-12-2023 Chronic Other complications of (5 sources) History of gestational diabetes mellitus; Translations: [Supervision of with other poor reproductive or obstetric history, unspecified trimester] Episodic Other female genital disorders (1 source) [...] [19 weeks gestation of ] 04-21-2023 Episodic Residual codes; unclassified (2 sources) Gestation period, 34 weeks; Translations: [34 weeks gestation of ] 07-28-2023 Episodic Residual codes; unclassified (2 sources) Gestation period, 36 weeks; Translations: [36 weeks gestation of ] 08-11-2023 Episodic Residual codes; unclassified (1 source) Gestation period, 37 weeks; Translations: [37 weeks gestation of ] 08-18-2023 Episodic Residual codes; unclassified (1 source) Gestation period, 38 weeks; Translations: [38 weeks gestation of ] 08-25-2023 Episodic Residual codes; unclassified (1 source) 34 weeks gestation of ; Translations: [34 weeks gestation of ] Onset: 08-11-2023 Episodic Past or Other Problems Problem Classification Problem Date Documented Da te Episodic/Chronic Diabetes or abnormal glucose tolerance complicating ; childbirth; or the puerperium (3 sources) Gestational diabetes mellitus; Translations: [Gestational diabetes mellitus in , insulin controlled] Onset: 03-02-2021 01-25-2023 Episodic Immunizations and screening for infectious disease (12 sources) Requires measles, mumps and rubella vaccination; Translations: [Encounter for immunization] Onset: 02-07-2023 04-21-2023 Episodic Other complications of (20 sources) RhD negative; Translations: [Other specified related conditions, unspecified trimester] Onset: 02-18-2021 01-25-2023 Episodic Other complications of (16 sources) Rubella non-immune; Translations: [Supervision of other high risk pregnancies, unspecified trimester] Onset: 01-24-2023 02-08-2023 Episodic Other complications of (1 source) Supervision of with other poor reproductive or obstetric history, unspecified trimester; Translations: [History of gestational diabetes in prior , currently ] Onset: 04-14-2023 Episodic Other and delivery including normal (10 sources) care status; Translations: [Encounter for routine follow-up] Onset: 01-25-2023 Episodic Other screening for suspected conditions (not mental disorders or infectious disease) (10 sources) Patient encounter status; Translations: [Encounter for screening for malignant neoplasm of cervix] Onset: 02-07-2023 Episodic Results Test Name Value Interpretation Reference Range Facil ity Vital Signs Date Time Vital Sign Value Performing Clinician Trice pacheco 08-25-2023 10:46-0500 Body weight 124.74 kg Yenni Catalan MD Work Phone: [facility] 08-25-2023 10:46-0500 Diastolic blood pressure 73 mm[Hg] Yenni Catalan MD Work Phone: [facility] 08-25-2023 10:46-0500 Systolic blood pressure 116 mm[Hg] Yenni Catalan MD Work Phone: [facility] 08-18-2023 10:51-0500 Body weight 123.38 kg Aliza Storey MD Work Phone: [facility] 08-18-2023 10:51-0500 Diastolic blood pressure 80 mm[Hg] Aliza Storey MD Work Phone: [facility] 08-18-2023 10:51-0500 Systolic blood pressure 117 mm[Hg] Aliza Storey MD Work Phone: [facility] 08-11-2023 12:48-0500 Body weight 123.38 kg Yenni Catalan MD Work Phone: [facility] 08-11-2023 12:48-0500 Diastolic blood pressure 72 mm[Hg] Yenni Catalan MD Work Phone: [facility] 08-11-2023 12:48-0500 Systolic blood pressure 118 mm[Hg] Yenni Catalan MD Work Phone: [facility] 08-04-2023 11:34-0500 Body weight 121.38 kg Nst Wstr Work Phone: [facility] 08-04-2023 11:34-0500 Diastolic blood pressure 77 mm[Hg] Nst Wstr Work Phone: [facility] 08-04-2023 11:34-0500 Systolic blood pressure 109 mm[Hg] Nst Wstr Work Phone: [facility] 07-28-2023 10:54-0500 Body weight 121.11 kg Yenni Catalan MD Work Phone: [facility] 07-28-2023 10:54-0500 Diastolic blood pressure 70 mm[Hg] Yenni Catalan MD Work Phone: [facility] 07-28-2023 10:54-0500 Systolic blood pressure 118 mm[Hg] Yenni Catalan MD Work Phone: [facility] 04-21-2023 15:07-0400 Diastolic blood pressure 70 mm[Hg] Candace Haury HEALTH OUTREACH WORKER.BRICKLAYER APPRENTICE Work Phone: [facility] 04-21-2023 15:07-0400 Systolic blood pressure 114 mm[Hg] Candace Haury HEALTH OUTREACH WORKER.BRICKLAYER APPRENTICE Work Phone: [facility] 04-21-2023 15:05-0400 Body weight 114.31 kg Candace Haury HEALTH OUTREACH WORKER.BRICKLAYER APPRENTICE Work Phone: [facility] 04-14-2023 15:22-0400 Body weight 116.5752 kg JULIANA PUENTE [facility] Encounters Encounter Date Encounter Type Care Provider Facility Start: 08-25-2023 End: 08-25-2023 ambulatory SELF Facility:[facility] Start: 08-25-2023 End: 08-25-2023 Patient encounter procedure Yenni Catalan MD Work Phone: OB/Gynecology Procedures Date Procedure Procedure Detail Performing Clinician Start: 08-25-2023 URINE OB DIP B/O Yenni Catalan MD Work Phone: Start: 08-18-2023 URINE OB DIP B/O Aliza snider MD Work Phone: Start: 08-11-2023 Us preg uterus after 1st trimest 1/ gestation Yenni Catalan MD Work Phone: Start: 08-11-2023 URINE OB DIP B/O Yenni Catalan MD Work Phone: Start: 08-04-2023 URINE OB DIP B/O Jami Collado HEALTH OUTREACH WORKER.CNM Work Phone: Start: 07-28-2023 URINE OB DIP B/O Yenni Catalan MD Work Phone: Start: 04-21-2023 URINE OB DIP B/O Yenni Catalan MD Work Phone: Start: 04-21-2023 Us preg uterus after 1st trimest 06/26 gestation Yenni Catalan MD Work Phone: Start: 03-30-2023 URINE OB DIP B/O Yenni Catalan MD Work Phone: Start: 03-02-2023 Us nuchal translucency 1st gestation Juliana Puente HEALTH OUTREACH WORKER.BRICKLAYER APPRENTICE Work Phone: Start: 02-23-2023 H/O: section H/O s ection Yenni Catalan MD Work Phone: Start: 02-23-2023 URINE OB DIP B/O eYnni Catalan MD Work Phone: Start: 02-07-2023 Antibody screen JULIANA BRITTON Plan of Treatment Date Care Activity Detail Author Start: 01-26-2028 HPV TESTING HPV TESTING [facility] Start: 01-26-2028 Screening for malignant neoplasm of cervix HPV Testing [facility] Start: 11-07-2026 Urine microalbumin profile [facility] Start: 10-19-2026 HPV TESTING HPV TESTING [facility] Start: 01-25-2026 PAP TESTING PAP TESTING [facility] Start: 01-25-2026 Screening for malignant neoplasm of cervix Pap Testing [facility] Start: 10-19-2024 PAP TESTING PAP TESTING [facility] Start: 07-28-2023 End: 07-28-2024 OBSTETRIC ULTRASOUND WHI OBSTETRIC ULTRASOUND [facility]I Anc Imaging Routine 34 weeks gestation of Obesity affecting in third trimester, unspecified obesity type Expected: 07/28/2023, Expires: 07/28/2024 [facility] Work Phone: Immunizations Immunization Date Immunization Notes Care Provider Fa cility 07-12-2023 respiratory syncytia l virus (RSV) vaccine, bivalent (ABRYSVO) Yenni Catalan MD Work Phone: [facility] 06-13-2023 RHO(D) immune globul in- IV or IM Yenni Catalan MD Work Phone: [facility] 06-22-2021 RHO(D) immune globul in- IV or IM Reyes Bailon MD Work Phone: [facility] 02-08-2018 RHO(D) immune globul in- IV or IM Reyes Bailon MD Work Phone: [facility] 04-18-2017 influenza virus vacc ine, unspecified formulation Yenni Catalan MD Work Phone: [facility] 11-07-2016 tetanus toxoid, redu bony diphtheria toxoid, and acellular pertussis vaccine, adsorbed Reyes Bailon MD Work Phone: [facility] 07-24-2013 influenza virus vacc ine, unspecified formulation Reyes Bailon MD Work Phone: [facility] 05-08-2009 influenza virus vacc ine, unspecified formulation Reyes Bailon MD Work Phone: [facility] 05-03-2008 influenza virus vacc ine, unspecified formulation Reyes Bailon MD Work Phone: [facility] 05-03-2008 meningococcal polysaccharide vaccine (MPSV4) Reyes Bailon MD Work Phone: [facility] 07-12-2007 human papilloma viru s vaccine, quadrivalent Reyes Bailon MD Work Phone: [facility] 03-28-2007 human papilloma viru s vaccine, quadrivalent Reyes Bailon MD Work Phone: [facility] 01-19-2007 human papilloma viru s vaccine, quadrivalent Reyes Bailon MD Work Phone: [facility] 01-19-2007 tetanus toxoid, redu bony diphtheria toxoid, and acellular pertussis vaccine, adsorbed Reyes Bailon MD Work Phone: [facility] 05-31-2006 influenza virus vacc ine, unspecified formulation Reyes Bailon MD Work Phone: [facility] Work Phone: 05-27-2005 influenza virus vacc ine, unspecified formulation Reyes Bailon MD Work Phone: [facility] 02-13-1998 diphtheria, tetanus toxoids and pertussis vaccine Reyes Bailon MD Work Phone: [facility] 02-13-1998 measles, mumps and rubella virus vaccine Reyes Bailon MD Work Phone: [facility] 02-13-1998 poliovirus vaccine, inactivated Reyes Bailon MD Work Phone: [facility] 03-23-1994 diphtheria, tetanus toxoids and pertussis vaccine Reyes Bailon MD Work Phone: [facility] 03-23-1994 haemophilus influenz ae type b vaccine, HbOC conjugate Reyes Bailon MD Work Phone: [facility] 03-23-1994 measles, mumps and rubella virus vaccine Reyes Bailon MD Work Phone: [facility] 03-23-1994 poliovirus vaccine, inactivated Reyes Bailon MD Work Phone: [facility] 06-16-1993 hepatitis B vaccine, pediatric or pediatric/adolescent dosage Reyes Bailon MD Work Phone: [facility] 05-19-1993 diphtheria, tetanus toxoids and pertussis vaccine Reyes Bailon MD Work Phone: [facility] 05-19-1993 haemophilus influenz ae type b vaccine, HbOC conjugate Reyes Bailon MD Work Phone: [facility] 03-17-1993 diphtheria, tetanus toxoids and pertussis vaccine Reyes Bailon MD Work Phone: [facility] 03-17-1993 haemophilus influenz ae type b vaccine, HbOC conjugate Reyes Bailon MD Work Phone: [facility] 03-17-1993 poliovirus vaccine, inactivated Reyes Bailon MD Work Phone: [facility] 01-20-1993 diphtheria, tetanus toxoids and pertussis vaccine Reyes Bailon MD Work Phone: [facility] 01-20-1993 haemophilus influenz ae type b vaccine, HbOC conjugate Reyes Bailon MD Work Phone: [facility] 01-20-1993 poliovirus vaccine, inactivated Reyes Bailon MD Work Phone: [facility] 1992 hepatitis B vaccine, pediatric or pediatric/adolescent dosage Reyes Bailon MD Work Phone: [facility] 1992 hepatitis B vaccine, pediatric or pediatric/adolescent dosage Reyes Bailon MD Work Phone: [facility] Payers Date Payer Category Payer Private Health Insurance [employer] [facility] [id number] 2023-Present [phone] [address] [place] [address] PPO [id number] 2023 Private Health Insurance [id number] 2022 Unknown ARMANDO GALLARDO PPO [id number] 2022-Present [phone] [address] [place] [address] PPO [id number] 2022 Unknown [id number] 2020 Private Health Insurance [facility] CHO[employer]US [id number] 2020-Present [phone] [address] [place] [address] O [id number] Social History Date Type Detail Facility Start: 01-25-2023 Tobacco smoking stat [facility] Never smoked tobacco [facility] Start: 10-13-2021 End: 08-25-2023 Alcohol intake Ex-drinker (finding) [facility] Start: 09-03-2021 History SDOH Alcohol Frequency 98 [facility] Start: 12-24-2014 History SDOH Alcohol Comment Social [facility] Start: 09-03-2021 History SDOH Social Connections Living 3 [facility] Start: 02-18-2021 Education 15 [facility] Start: 1990 Sex Assigned At Not on file C [facility] Start: 10-03-2021 End: 10-19-2021 Exposure to SARS-CoV-2 (event) Not sure [facility] Work Phone: Start: 01-25-2023 Tobacco use and exposure Smoke less tobacco non-user [facility] Start: 09-03-2021 End: 02-23-2023 History of Social function [facility] Start: 09-03-2021 End: 02-23-2023 Social connection and isolation panel [facility] In a typical week, h ow many times do you talk on the telephone with family, friends, or neighbors? Patient refused [facility] Are you now , , , , never or living with a partner? [facility] (I/We) worried wheth er (my/our) food would run out before (I/we) got money to buy more. DK or Refused [facility] Start: 12-13-2022 [facility] Goals Date Patient Goal Desired Activity /State Personal health goal Clinical Notes 03-13-2021 to 08-25-2023 Quick Notes - Yenni Catalan MD - 08/25/2023 11:04 AM Yenni Mata MD - 08/25/2023 10:49 AM ESTPatient InstructionsAliza Storey MD - 08/18/2023 11:15 AM ESTPatient Instructions Note Date & Type Note Facility 08-25-2023 Miscellaneous Notes KJ - VB No. LOF No. CTXS No. Movement: present. Other c/o: No. Medication list reviewed. Physical Exam See Flow Sheet Gen: no accute distress, well appearing A/P 38w3d Estimated Date of Delivery: 09/05/23 MOD - repeat . Informed consent signed today. Patient scheduled 09/01/23. Obesity - reactive NST labor precautions reviewed, Kick counts reviewed. Yenni Catalan MD documented in this encounter [facility] 08-25-2023 History and physical note N/a documented in this encounter [facility] 08-25-2023 Instructions Catia Cruz Ma - 08/25/2023 10:48 AM EST SEQUENTIAL SCREENINGS The [facility] offers sequential screenings for women who are [...] It will require an appointment with our sound technician. This is not an ultrasound performed [...] the above symptoms, contact our office at [phone] and ask to speak with a nurse. After hours, you can call doctors registry at [phone] OR call [facility] at [phone] and ask to have the doctor bond analyst paged. If you consider this an emergency, dial 9-1-1 or go to your nearest emergency department. NEED HELP? Are you dealing with a violent or abusive relationship? Are you a victim of rape or sexual assult? Call [facility] ([place]) 24 hour Crisis Hotline: 676.756.9599 or 368-582-9483. MANUAL Your Guide to a Healthy manual is now on-line. Visit [email or web address] to download your free copy documented in this encounter [facility] 08-18-2023 Note HNO ID: [id number] Author: ALIZA STOREY MD Service: ? Author Type: Physician Type: Progress Notes Filed: 08/18/2023 11:17 Note Text: NST SUMMARY PROVIDER ASSESSMENT AND INTERPRETATION Tomeka Hernandez is a 32 year old female, , who is at 37w3d with an ANUJA of 09/05/2023, by Last Menstrual Period dating method. Indications for NST: Obesity Baseline: 140 Variability: Moderate Accelerations: Present 15 X 15 Decelerations: None Contractions: TOCO: None Interpretation: Reactive SIGNATURE: Aliza Storey DO [facility] 08-18-2023 History of Presen t illness Narrative NST SUMMARY PROVIDER ASSESSMENT AND INTERPRETATION Tomeka Hernandez is a 32 year old female, , who is at 37w3d with an ANUJA of 09/05/2023, by Last Menstrual Period dating method. Indications for NST: Obesity Baseline: 140 Variability: Moderate Accelerations: Present 15 X 15 Decelerations: None Contractions: TOCO: None Interpretation: Reactive SIGNATURE: Aliza Storey DO documented in this encounter [facility] 08-18-2023 Miscellaneous Notes SW- Some pelvic pressure. No ctx, vb, lof. Good FM PE: Gen- NAD, well appearing Abd- Soft, gravid, NT See flowsheet A/p 37 wk gestation - Obesity: Cont weekly NST's. Reactive NST today - RTO 1 wk pre op Aliza Storey DO documented in this encounter [facility] 08-18-2023 Instructions Branden Stoddard Cma - 08/18/2023 10:51 AM EST SEQUENTIAL SCREENINGS The [facility] offers sequential screenings for women who are [...] It will require an appointment with our sound technician. This is not an ultrasound performed [...] the above symptoms, contact our office at [phone] and ask to speak with a nurse. After hours, you can call doctors registry at [phone] OR call [facility] at [phone] and ask to have the doctor bond analyst paged. If you consider this an emergency, dial [phone]- or go to your nearest emergency department. NEED HELP? Are you dealing with a violent or abusive relationship? Are you a victim of rape or sexual assult? Call [facility] ([place]) 24 hour Crisis Hotline: 482.469.1641 or 287-003-5911. MANUAL Your Guide to a Healthy manual is now on-line. Visit [email or web address] Yeimy to download your free copy documented in this encounter [facility] 08-11-2023 Note HNO ID: [id number] Author: YENNI CATALAN MD Service: ? Author Type: Physician Type: Progress Notes Filed: 08/11/2023 16:34 Note Text: NST SUMMARY PROVIDER ASSESSMENT AND INTERPRETATION Tomeka Hernandez is a 32 year old female, , who is at 36w3d with an ANUJA of 09/05/2023, by Last Menstrual Period dating method. Indications for NST: Obesity AND BPP /8 Baseline: 125 Variability: Moderate Accelerations: Present 15 X 15 Decelerations: Variable Contractions: TOCO: None Interpretation: Reactive SIGNATURE: Yenni Catalan MD [facility] 08-11-2023 History of Presen t illness Narrative NST SUMMARY PROVIDER ASSESSMENT AND INTERPRETATION Tomeka Hernandez is a 32 year old female, , who is at 36w3d with an ANUJA of 09/05/2023, by Last Menstrual Period dating method. Indications for NST: Obesity & BPP 6/8 Baseline: 125 Variability: Moderate Accelerations: Present 15 X 15 Decelerations: Variable Contractions: TOCO: None Interpretation: Reactive SIGNATURE: Yenni Catalan MD documented in this encounter [facility] 08-11-2023 Miscellaneous Notes KJ - VB No. LOF No. CTXS No. Movement: present. Other c/o: No. Medication list reviewed. Physical Exam See Flow Sheet Gen: no accute distress, well appearing Abd: soft, nontender, gravid A/P 36w3d Estimated Date of Delivery: 09/05/23 Labs: GBS done Obesity - growth US today MOD - repeat PTL precautions reviewed, Kick counts reviewed. Yenni Catalan MD documented in this encounter [facility] 08-11-2023 Instructions Catia Cruz Ma - 08/11/2023 12:47 PM EST SEQUENTIAL SCREENINGS The [facility] offers sequential screenings for women who are [...] It will require an appointment with our sound technician. This is not an ultrasound performed [...] the above symptoms, contact our office at [phone] and ask to speak with a nurse. After hours, you can call doctors registry at [phone] OR call [facility] at [phone] and ask to have the doctor bond analyst paged. If you consider this an emergency, dial 9-9-7 or go to your nearest emergency department. NEED HELP? Are you dealing with a violent or abusive relationship? Are you a victim of rape or sexual assult? Call [facility] ([place]) 24 hour Crisis Hotline: 957.656.9138 or 693-902-0552. MANUAL Your Guide to a Healthy manual is now on-line. Visit [email or web address] Yeimy to download your free copy documented in this encounter [facility] 08-04-2023 Note HNO ID: [id number] Author: LEIGHA COLLADO APRN.CNM Service: ? Author Type: Technical Business Systems Analyst Type: Progress Notes Filed: 08/04/2023 11:58 Note Text: NST SUMMARY PROVIDER ASSESSMENT AND INTERPRETATION Tomeka Hernandez is a 32 year old female, , who is at 35w3d with an ANUJA of 09/05/2023, by Last Menstrual Period dating method. Indications for NST: Obesity Baseline: 155 Variability: Moderate Accelerations: Present 15 X 15 Decelerations: None Contractions: TOCO: Irritability Interpretation: Reactive SIGNATURE: Leigha Collado APRN.CNM [facility] 08-04-2023 History of Presen t illness Narrative NST SUMMARY PROVIDER ASSESSMENT AND INTERPRETATION Tomeka Hernandez is a 32 year old female, , who is at 35w3d with an ANUJA of 09/05/2023, by Last Menstrual Period dating method. Indications for NST: Obesity Baseline: 155 Variability: Moderate Accelerations: Present 15 X 15 Decelerations: None Contractions: TOCO: Irritability Interpretation: Reactive SIGNATURE: Leigha Collado APRN.CNM documented in this encounter [facility] 08-04-2023 Instructions Branden Stoddard Cma - 08/04/2023 11:33 AM EST SEQUENTIAL SCREENINGS The [facility] offers sequential screenings for women who are [...] It will require an appointment with our sound technician. This is not an ultrasound performed [...] the above symptoms, contact our office at [phone] and ask to speak with a nurse. After hours, you can call doctors registry at [phone] OR call [facility] at [phone] and ask to have the doctor bond analyst paged. If you consider this an emergency, dial 9-1-7 or go to your nearest emergency department. NEED HELP? Are you dealing with a violent or abusive relationship? Are you a victim of rape or sexual assult? Call [facility] ([place]) 24 hour Crisis Hotline: 102.329.7421 or 123-194-3805. MANUAL Your Guide to a Healthy manual is now on-line. Visit [email or web address] nancyGuide to download your free copy documented in this encounter [facility] 08-04-2023 Miscellaneous Notes Patient here for NST only. NST reactive. See progress note. Leigha Collado APRN.CNM documented in this encounter [facility] 07-28-2023 Note HNO ID: [id number] Author: YENNI CATALAN MD Service: ? Author Type: Physician Type: Progress Notes Filed: 07/28/2023 11:45 Note Text: NST SUMMARY PROVIDER ASSESSMENT AND INTERPRETATION Tomeka Hernandez is a 32 year old female, , who is at 34w3d with an ANUJA of 09/05/2023, by Last Menstrual Period dating method. Indications for NST: Obesity Baseline: 140 Variability: Moderate Accelerations: Present 15 X 15 Decelerations: Variable Contractions: TOCO: None Interpretation: Reactive SIGNATURE: Yenni Catalan MD [facility] 07-28-2023 History of Presen t illness Narrative NST SUMMARY PROVIDER ASSESSMENT AND INTERPRETATION Tomeka Hernandez is a 32 year old female, , who is at 34w3d with an ANUJA of 09/05/2023, by Last Menstrual Period dating method. Indications for NST: Obesity Baseline: 140 Variability: Moderate Accelerations: Present 15 X 15 Decelerations: Variable Contractions: TOCO: None Interpretation: Reactive SIGNATURE: Yenni Catalan MD documented in this encounter [facility] 07-28-2023 Miscellaneous Notes KJ - VB No. LOF No. CTXS No. Movement: present. Other c/o: No. Medication list reviewed. Physical Exam See Flow Sheet Gen: no accute distress, well appearing Abd: soft, nontender, gravid A/P 34w3d Estimated Date of Delivery: 09/05/23 MOD - repeat Obesity - weekly NSTs. Repeat growth US 2 weeks. PTL precautions reviewed, Kick counts reviewed. Yenni Catalan MD documented in this encounter [facility] 07-28-2023 Instructions Kimmy Jamil Ma - 07/28/2023 10:52 AM EST SEQUENTIAL SCREENINGS The [facility] offers sequential screenings for women who are [...] It will require an appointment with our sound technician. This is not an ultrasound performed [...] the above symptoms, contact our office at [phone] and ask to speak with a nurse. After hours, you can call doctors registry at [phone] OR call [facility] at [phone] and ask to have the doctor bond analyst paged. If you consider this an emergency, dial 9--1 or go to your nearest emergency department. NEED HELP? Are you dealing with a violent or abusive relationship? Are you a victim of rape or sexual assult? Call [facility] ([place]) 24 hour Crisis Hotline: 752.849.4475 or 322-891-1534. MANUAL Your Guide to a Healthy manual is now on-line. Visit [email or web address] nancyGuide to download your free copy documented in this encounter [facility] 06-15-2023 Miscellaneous Notes Done Yenni Catalan MD [...] Yenni Catalan MD documented in this encounter [facility] 05-12-2023 Miscellaneous Notes sent message. Hermelinda Bo [...] Amanda Nickerson RN documented in this encounter [facility] 04-21-2023 Miscellaneous Notes S: Tomeka Hernandez is a 32 year old female who [...] GHAZAL Villalta APRN.CNP documented in this encounter [facility] 04-21-2023 Instructions s Tiffany Solorzano - 04/21/2023 3:02 PM EDT SEQUENTIAL SCREENINGS The [facility] offers sequential screenings for women who are [...] It will require an appointment with our sound technician. This is not an ultrasound performed [...] the above symptoms, contact our office at [phone] and ask to speak with a nurse. After hours, you can call doctors registry at [phone] OR call [facility] at [phone] and ask to have the doctor bond analyst paged. If you consider this an emergency, dial 02-24- or go to your nearest emergency department. NEED HELP? Are you dealing with a violent or abusive relationship? Are you a victim of rape or sexual assult? Call [facility] ([place]) 24 hour Crisis Hotline: 666.219.3083 or 058-668-7513. MANUAL Your Guide to a Healthy manual is now on-line. Visit [email or web address] Yeimy to download your free copy documented in this encounter [facility] 04-18-2023 Miscellaneous Notes Patient notified Please notify [...] with Dr. Bo. documented in this encounter [facility] 03-30-2023 Miscellaneous Notes S: Tomeka is a [...] ultrasound and OB visit on Candace Newell APRN.BRICKLAYER APPRENTICE documented in this encounter [facility] 03-30-2023 Instructions Tiffany Rivas Ma - 03/30/2023 2:34 PM EDT SEQUENTIAL SCREENINGS The [facility] offers sequential screenings for women who are [...] It will require an appointment with our sound technician. This is not an ultrasound performed [...] the above symptoms, contact our office at [phone] and ask to speak with a nurse. After hours, you can call [facility] registry at [phone] OR call [facility] at [phone] and ask to have the doctor bond analyst paged. If you consider this an emergency, dial or go to your nearest emergency department. NEED HELP? Are you dealing with a violent or abusive relationship? Are you a victim of rape or sexual assult? Call [facility] ([place]) 24 hour Crisis Hotline: 470.227.5725 or 906-550-3690. MANUAL Your Guide to a Healthy manual is now on-line. Visit [email or web address] Yeimy to download your free copy documented in this encounter [facility] 03-02-2023 Instructions Nazanin Gates LPN - 03/02/2023 9:14 AM EDT SEQUENTIAL TESTING PROCESS Sequential Screen First Trimester Today you are currently: 12w4d weeks 03/02/2023: Ultrasound and blood test. Sequential Screen Second Trimester (16-17 Weeks Gestation) When you are called with your results, the nurse will give the optimal draw dates for the Sequential screen second trimester. Blood testing can be done at any [facility] lab. Please report to the any ship laborer office front end assistant for the Sequential Part 2 requisition and [...] medicine office, for east side please call [phone] or for the West side call [phone] and ask for the the nurse. Thank you. documented in this encounter [facility] 03-02-2023 Miscellaneous Notes Patient here for First Trimester Screening. See ultrasound report for details. Options for genetic screening and diagnosis discussed with the patient. Patient opts for first trimester screening and the sequential screening protocol. Limitations of screening tests discussed with the patient. Aliza Storey MD documented in this encounter [facility] 02-28-2023 Miscellaneous Notes Patient notified of recommendations [...] Antoinette Lake RN documented in this encounter [facility] 02-23-2023 Miscellaneous Notes KJ - No VB/LOF/ctxs. She reports vaginal irritation after using a new soap. TAUS: active fetus with fca A&P: Vaginitis swab NT next week with sequential Anatomy US ordered MOD - plans repeat Yenni Catalan MD documented in this encounter [facility] 02-23-2023 Instructions s Tiffany Solorzano - 02/23/2023 9:52 AM EDT SEQUENTIAL SCREENINGS The [facility] offers sequential screenings for women who are [...] It will require an appointment with our sound technician. This is not an ultrasound performed [...] the above symptoms, contact our office at [phone] and ask to speak with a nurse. After hours, you can call doctors registry at [phone] OR call [facility] at [phone] and ask to have the doctor bond analyst paged. If you consider this an emergency, dial 9-1-2 or go to your nearest emergency department. NEED HELP? Are you dealing with a violent or abusive relationship? Are you a victim of rape or sexual assult? Call [facility] ([place]) 24 hour Crisis Hotline: 148.841.3283 or 584-378-9356. MANUAL Your Guide to a Healthy manual is now on-line. Visit [email or web address] to download your free copy documented in this encounter [facility] 01-25-2023 Note HNO ID: [id number] Author: Reyes Arrieta MD Service: ? Author Type: Physician Type: Progress Notes Filed: 01/25/2023 4:48 PM Note Text: OB point of care ultrasound was performed. See imaging tab for details. Reyes Ziegler MD [facility] 08-02-2023 History of Presen t illness Narrative OB point of care ultrasound was performed. See imaging tab for details. Reyes Ziegler MD documented in this encounter [facility] 01-25-2023 Note HNO ID: [id number] Author: Juliana Puente APRN.DARA Service: ? Author Type: Nurse Practitioner Type: Progress Notes Filed: 01/25/2023 5:48 PM Note Text: Esthetic Dermatologist offered: Patient declines. INITIAL OB ASSESSMENT OB [...] use: No Multivitamin with Folic acid: Yes Temple or heritage: No Would refuse blood transfusion if medically necessary: No Are you currently employed? Yes, Occupation: WASHING MACHINE REPAIRER Do you have any history of depression, [...] hour GCT. 3 hour GTT ordered. Leigha Collado APRN.CNM Insulin controlled gestational diabetes mellitus (GDM) [...] stool, Vomiting [facility] (more content not included)... [facility] 01-25-2023 History of Presen t illness Narrative Esthetic Dermatologist offered: Patient declines. INITIAL OB ASSESSMENT OB [...] use: No Multivitamin with Folic acid: Yes Temple or heritage: No Would refuse blood transfusion if medically necessary: No Are you currently employed? Yes, Occupation: WASHING MACHINE REPAIRER Do you have any history of depression, [...] hour GCT. 3 hour GTT ordered. Leigha Collado APRN.ZAIRA Insulin controlled gestational diabetes mellitus (GDM) [...] Your guide to a health and the [employer] Truck Operator. Discussed aneuploidy and carrier screening. Regarding [...] which included preparing to see the patient, [id number] patient care, completing clinical documentation, obtaining and/or reviewing separately obtained history, performing a medically appropriate examination, counseling and educating the patient/family/caregiver, and ordering medications, tests, or procedures. documented in this encounter [facility] 01-25-2023 Instructions Nazanin Gates LPN - 01/25/2023 8:02 AM EDT Please select the following link to access the [facility] Your Guide to a Healthy . [email or web address] documented in this encounter [facility] 10-19-2021 History of Presen t illness Narrative VISIT Obstetric History T1 L1 SAB1 IAB0 Ectopic0 Multiple0 Live Births1 Name of Baby 1: Not recorded Date: 03/2018 GA: 6w0d Delivery: Not recorded Apgar1: Not recorded Apgar5: Not recorded Living: Not recorded Name of Baby 2: Pau Date: 09/06/21 GA: 39w1d Delivery: , Low Transverse Apgar1: 8 Apgar5: 9 Living: Living Tomeka Hernandez is a 30 year old year old here for visit. Delivery Summary: ROS/ Recovery: Feeding: Bottle feeding problems: Stopped after 2 weeks Menses since delivery: none Menstrual pattern prior to : Regular periods Ogema since delivery: Not resumed Depression: denies symptoms [...] hour GCT. 3 hour GTT ordered. Leigha Collado APRN.CNM PAST SURGICAL HISTORY Procedure Laterality Date [...] external genitalia normal, normal Bartholin's glands, urethra, [place]'s glands, no vulvar lesions, no cervical lesions, [...] Yenni Catalan MD documented in this encounter [facility] 10-13-2021 History of Presen t illness Narrative [...] Reyes Ziegler MD documented in this encounter [facility] documented as of this encounter (statuses as of 10/13/2021) [facility] History of Past illness Narrative* Problem Noted Date Resolved Date Pneumonia due to COVID-19 virus 03/17/2021 03/17/2021 COVID 03/11/2021 03/17/2021 Insulin controlled gestation al diabetes mellitus (GDM) during , antepartum 03/02/2021 09/14/2021 Elevated glucose 02/19/2021 09/14/2021 Overview: 03/02/21- Two elevated levels on 3 hour GTT. Dx GDM. Leigha Collado APRN.ZAIRA 02/19/21- Elevated 1 hour GCT. 3 hour GTT ordered. Leigha Collado APRN.ZAIRA Current with histo ry of spontaneous [...] candidate. TKRN Patient request for diagnostic testing 1 09/14/2021 Overview: 02/18/2021atient desires nuchal ultrasound. Declines genetic carrier screening testing.TKRN History of chicken pox 12/24/2014 2 Pain in joint, shoulder region 11/14/2012 0 09/14/2021 ALLERGIC RHINITIS 01/19/2007 09/14/2021 documented as of this encounter (statuses as of 10/19/2021) [facility] History of Past illness Narrative* Problem Noted Date Diagnosed Date Resolved Date Pneumonia due to COVID-19 virus 03/17/2021 03/17/2021 COVID 03/11/2021 03/17/2021 Insulin controlled gestation al diabetes mellitus (GDM) during , antepartum 03/02/2021 09/14/2021 Elevated glucose 02/19/2021 09/14/2021 Overview: 03/02/21- Two elevated levels on 3 hour GTT. Dx GDM. Leigha Collado APRN.CNM 02/19/21- Elevated 1 hour GCT. 3 hour GTT ordered. Leigha Collado APRN.CNM Elevated glucose 02/19/2021 01/25/2023 Overview: 02/19/21- Elevated 1 hour GCT. 3 hour GTT ordered. Leigha Collado APRN.CNM Current with histo ry of spontaneous [...] of this encounter (statuses as of 01/26/2023) [facility] History of Past illness Narrative* Problem Noted Date Diagnosed Date Resolved Date Pneumonia due to COVID-19 virus 03/17/2021 03/17/2021 COVID 03/11/2021 03/17/2021 Insulin controlled gestation al diabetes mellitus (GDM) during , antepartum 03/02/2021 09/14/2021 Elevated glucose 02/19/2021 09/14/2021 Overview: 03/02/21- Two elevated levels on 3 hour GTT. Dx GDM. Leigha Collado APRN.CNM 02/19/21- Elevated 1 hour GCT. 3 hour GTT ordered. Leigha Collado APRN.CNM Elevated glucose 02/19/2021 01/25/2023 Overview: 02/19/21- Elevated 1 hour GCT. 3 hour GTT ordered. Leigha Collado APRN.CNM Current with histo ry of spontaneous [...] of this encounter (statuses as of 01/26/2023) [facility] History of Past illness Narrative* Problem Noted Date Diagnosed Date Resolved Date Pneumonia due to COVID-19 virus 03/17/2021 03/17/2021 COVID 03/11/2021 03/17/2021 Insulin controlled gestation al diabetes mellitus (GDM) during , antepartum 03/02/2021 09/14/2021 Insulin controlled gestation al diabetes mellitus (GDM) during 03/02/2021 02/24/20 23 Elevated glucose 02/19/2021 09/14/2021 Overview: 03/02/21- Two elevated levels on 3 hour GTT. Dx GDM. Leigha Collado APRN.CNM 02/19/21- Elevated 1 hour GCT. 3 hour GTT ordered. Leigha Collado APRN.CNM Elevated glucose 02/19/2021 01/25/2023 Overview: 02/19/21- Elevated 1 hour GCT. 3 hour GTT ordered. Leigha Collado APRN.CNM Current with histo ry of spontaneous [...] of this encounter (statuses as of 02/23/2023) [facility] History of Past illness Narrative* Problem Noted Date Diagnosed Date Resolved Date Pneumonia due to COVID-19 virus 03/17/2021 03/17/2021 COVID 03/11/2021 03/17/2021 Insulin controlled gestation al diabetes mellitus (GDM) during , antepartum 03/02/2021 09/14/2021 Insulin controlled gestation al diabetes mellitus (GDM) during 03/02/2021 02/24/20 23 Elevated glucose 02/19/2021 09/14/2021 Overview: 03/02/21- Two elevated levels on 3 hour GTT. Dx GDM. Leigha Collado APRN.CNM 02/19/21- Elevated 1 hour GCT. 3 hour GTT ordered. Leigha Collado APRN.CNM Elevated glucose 02/19/2021 01/25/2023 Overview: 02/19/21- Elevated 1 hour GCT. 3 hour GTT ordered. Leigha Collado APRN.CNM Current with histo ry of spontaneous [...] of this encounter (statuses as of 02/28/2023) [facility] History of Past illness Narrative* Problem Noted Date Diagnosed Date Resolved Date Pneumonia due to COVID-19 virus 03/17/2021 03/17/2021 COVID 03/11/2021 03/17/2021 Insulin controlled gestation al diabetes mellitus (GDM) during , antepartum 03/02/2021 09/14/2021 Insulin controlled gestation al diabetes mellitus (GDM) during 03/02/2021 02/24/20 23 Elevated glucose 02/19/2021 09/14/2021 Overview: 03/02/21- Two elevated levels on 3 hour GTT. Dx GDM. Leigha Collado APRN.CNM 02/19/21- Elevated 1 hour GCT. 3 hour GTT ordered. Leigha Collado APRN.CNM Elevated glucose 02/19/2021 01/25/2023 Overview: 02/19/21- Elevated 1 hour GCT. 3 hour GTT ordered. Leigha Collado APRN.CNM Current with histo ry of spontaneous during prior 02/18/2021 09/15/19 Overview: 02/18/2021atient has a history of a miscarriage. Denies any bleeding or pain this . Quantitative hCGs have been done. TKRN Patient request for diagnostic testing 02/18/2021 09/14/2021 Overview: 08/26/2021Patient desires nuchal ultrasound. Declines genetic carrier screening testing.TKRN History of chicken pox 12/24/201409/14 Pain in joint, shoulder region 11/14/2012 09/14/2021 ALLERGIC RHINITIS 01/19/2007 09/14/2021 documented as of this encounter (statuses as of 03/02/2023) [facility] History of Past illness Narrative* Problem Noted Date Diagnosed Date Resolved Date Pneumonia due to COVID-19 virus 03/17/2021 03/17/2021 COVID 03/11/2021 03/17/2021 Insulin controlled gestation al diabetes mellitus (GDM) during , antepartum 03/02/2021 09/14/2021 Insulin controlled gestation al diabetes mellitus (GDM) during 03/02/2021 02/24/20 23 Elevated glucose 02/19/2021 09/14/2021 Overview: 03/02/21- Two elevated levels on 3 hour GTT. Dx GDM. Leigha Collado APRN.CNM 02/19/21- Elevated 1 hour GCT. 3 hour GTT ordered. Leigha Collado APRN.CNM Elevated glucose 02/19/2021 01/25/2023 Overview: 02/19/21- Elevated 1 hour GCT. 3 hour GTT ordered. Leigha Collado APRN.CNM Current with histo ry of spontaneous [...] of this encounter (statuses as of 03/02/2023) [facility] History of Past illness Narrative* Problem Noted Date Diagnosed Date Resolved Date Pneumonia due to COVID-19 virus 03/17/2021 03/17/2021 COVID 03/11/2021 03/17/2021 Insulin controlled gestation al diabetes mellitus (GDM) during , antepartum 03/02/2021 09/14/2021 Insulin controlled gestation al diabetes mellitus (GDM) during 03/02/2021 02/24/20 Elevated glucose 02/19/2021 09/14/2021 Overview: 03/02/21- Two elevated levels on 3 hour GTT. Dx GDM. Leigha Collado APRN.CNM 02/19/21- Elevated 1 hour GCT. 3 hour GTT ordered. Leigha Collado APRN.CNM Elevated glucose 02/19/2021 01/25/2023 Overview: 02/19/21- Elevated 1 hour GCT. 3 hour GTT ordered. Leigha Collado APRN.CNM Current with histo ry of spontaneous [...] of this encounter (statuses as of 04/01/2023) [facility] History of Past illness Narrative* Problem Noted Date Diagnosed Date Resolved Date Pneumonia due to COVID-19 virus 03/17/2021 03/17/2021 COVID 03/11/2021 03/17/2021 Insulin controlled gestation al diabetes mellitus (GDM) during , antepartum 03/02/2021 09/14/2021 Insulin controlled gestation al diabetes mellitus (GDM) during 03/02/2021 02/24/20 23 Elevated glucose 02/19/2021 09/14/2021 Overview: 03/02/21- Two elevated levels on 3 hour GTT. Dx GDM. Leigha Collado APRN.CNM 02/19/21- Elevated 1 hour GCT. 3 hour GTT ordered. Leigha Collado APRN.CNM Current with histo ry of spontaneous [...] of this encounter (statuses as of 04/18/2023) [facility] History of Past illness Narrative* Problem Noted Date Diagnosed Date Resolved Date Pneumonia due to COVID-19 virus 03/17/2021 03/17/2021 COVID 03/11/2021 03/17/2021 Insulin controlled gestation al diabetes mellitus (GDM) during , antepartum 03/02/2021 09/14/2021 Insulin controlled gestation al diabetes mellitus (GDM) during 03/02/2021 02/24/20 23 Elevated glucose 02/19/2021 09/14/2021 Overview: 03/02/21- Two elevated levels on 3 hour GTT. Dx GDM. Leigha Collado APRN.CNM 02/19/21- Elevated 1 hour GCT. 3 hour GTT ordered. Leigha Collado APRN.CNM Current with histo ry of spontaneous [...] of this encounter (statuses as of 04/21/2023) [facility] History of Past illness Narrative* Problem Noted Date Diagnosed Date Resolved Date Pneumonia due to COVID-19 virus 03/17/2021 03/17/2021 COVID 03/11/2021 03/17/2021 Insulin controlled gestation al diabetes mellitus (GDM) during , antepartum 03/02/2021 09/14/2021 Insulin controlled gestation al diabetes mellitus (GDM) during 03/02/2021 02/24/20 23 Elevated glucose 02/19/2021 09/14/2021 Overview: 03/02/21- Two elevated levels on 3 hour GTT. Dx GDM. Leigha Collado APRN.CNM 02/19/21- Elevated 1 hour GCT. 3 hour GTT ordered. Leigha Collado APRN.ZAIRA Current with histo ry of spontaneous [...] of this encounter (statuses as of 04/21/2023) [facility] History of Past illness Narrative* Problem Noted Date Diagnosed Date Resolved Date Pneumonia due to COVID-19 virus 03/17/2021 03/17/2021 COVID 03/11/2021 03/17/2021 Insulin controlled gestation al diabetes mellitus (GDM) during , antepartum 03/02/2021 09/14/2021 Insulin controlled gestation al diabetes mellitus (GDM) during 03/02/2021 02/24/20 23 Elevated glucose 02/19/2021 09/14/2021 Overview: 03/02/21- Two elevated levels on 3 hour GTT. Dx GDM. Leigha Collado APRN.CNM 02/19/21- Elevated 1 hour GCT. 3 hour GTT ordered. Leigha Collado APRN.ZAIRA Current with histo ry of spontaneous [...] of this encounter (statuses as of 05/12/2023) [facility] History of Past illness Narrative* Problem Noted Date Diagnosed Date Resolved Date Pneumonia due to COVID-19 virus 03/17/2021 03/17/2021 COVID 03/11/2021 03/17/2021 Insulin controlled gestation al diabetes mellitus (GDM) during , antepartum 03/02/2021 09/14/2021 Insulin controlled gestation al diabetes mellitus (GDM) during 03/02/2021 02/24/20 23 Elevated glucose 02/19/2021 09/14/2021 Overview: 03/02/21- Two elevated levels on 3 hour GTT. Dx GDM. Leigha Collado APRN.CNM 02/19/21- Elevated 1 hour GCT. 3 hour GTT ordered. Leigha Collado APRN.CNM Current with histo ry of spontaneous [...] of this encounter (statuses as of 06/16/2023) [facility] History of Past illness Narrative* Problem Noted Date Diagnosed Date Resolved Date Pneumonia due to COVID-19 virus 03/17/2021 03/17/2021 COVID 03/11/2021 03/17/2021 Insulin controlled gestation al diabetes mellitus (GDM) during , antepartum 03/02/2021 09/14/2021 Insulin controlled gestation al diabetes mellitus (GDM) during 03/02/2021 02/24/20 23 Elevated glucose 02/19/2021 09/14/2021 Overview: 03/02/21- Two elevated levels on 3 hour GTT. Dx GDM. Leigha Collado APRN.CNM 02/19/21- Elevated 1 hour GCT. 3 hour GTT ordered. Leigha Collado APRN.CNM Current with histo ry of spontaneous [...] as of this encounter (statuses as of 07/28/2023) [facility]09-22-2021 History of Past illness Narrative* Problem Noted Date Diagnosed Date Resolved Date Pneumonia due to COVID-19 virus 03/17/2021 03/17/2021 COVID 03/11/2021 03/17/2021 Insulin controlled gestation al diabetes mellitus (GDM) during , antepartum 03/02/2021 09/14/2021 Insulin controlled gestation al diabetes mellitus (GDM) during 03/02/2021 02/24/20 23 Elevated glucose 02/19/2021 09/14/2021 Overview: 03/02/21- Two elevated levels on 3 hour GTT. Dx GDM. Leigha Collado APRN.CNM 02/19/21- Elevated 1 hour GCT. 3 hour GTT ordered. Leigha Collado APRN.CNM Current with histo ry of spontaneous [...] as of this encounter (statuses as of 08/04/2023) [facility]09-22-2021 History of Past illness Narrative* Problem Noted Date Diagnosed Date Resolved Date Pneumonia due to COVID-19 virus 03/17/2021 03/17/2021 COVID 03/11/2021 03/17/2021 Insulin controlled gestation al diabetes mellitus (GDM) during , antepartum 03/02/2021 09/14/2021 Insulin controlled gestation al diabetes mellitus (GDM) during 03/02/2021 02/24/20 23 Elevated glucose 02/19/2021 09/14/2021 Overview: 03/02/21- Two elevated levels on 3 hour GTT. Dx GDM. Leigha Collado APRN.CNM 02/19/21- Elevated 1 hour GCT. 3 hour GTT ordered. Leigha Collado APRN.CNM Current with histo ry of spontaneous [...] as of this encounter (statuses as of 08/11/2023) [facility]2021 History of Past illness Narrative* Problem Noted Date Diagnosed Date Resolved Date Pneumonia due to COVID-19 virus 03/17/2021 03/17/2021 COVID 03/11/2021 03/17/2021 Insulin controlled gestation al diabetes mellitus (GDM) during , antepartum 03/02/2021 09/14/2021 Insulin controlled gestation al diabetes mellitus (GDM) during 03/02/2021 02/24/20 23 Elevated glucose 02/19/2021 09/14/2021 Overview: 03/02/21- Two elevated levels on 3 hour GTT. Dx GDM. Leigha Collado APRN.CNM 02/19/21- Elevated 1 hour GCT. 3 hour GTT ordered. Leigha Collado APRN.CNM Current with histo ry of spontaneous [...] as of this encounter (statuses as of 08/11/2023) [facility]-2021 History of Past illness Narrative* Problem Noted Date Diagnosed Date Resolved Date Pneumonia due to COVID-19 virus 03/17/2021 03/17/2021 COVID 03/11/2021 03/17/2021 Insulin controlled gestation al diabetes mellitus (GDM) during , antepartum 03/02/2021 09/14/2021 Insulin controlled gestation al diabetes mellitus (GDM) during 03/02/2021 02/24/20 23 Elevated glucose 02/19/2021 09/14/2021 Overview: 03/02/21- Two elevated levels on 3 hour GTT. Dx GDM. Leigha Collado APRN.CNM 02/19/21- Elevated 1 hour GCT. 3 hour GTT ordered. Leigha Collado APRN.CNM Current with histo ry of spontaneous [...] as of this encounter (statuses as of 08/18/2023) [facility]2021 History of Past illness Narrative* Problem Noted Date Diagnosed Date Resolved Date Pneumonia due to COVID-19 virus 03/17/2021 03/17/2021 COVID 03/11/2021 03/17/2021 Insulin controlled gestation al diabetes mellitus (GDM) during , antepartum 03/02/2021 09/14/2021 Insulin controlled gestation al diabetes mellitus (GDM) during 03/02/2021 02/24/20 Elevated glucose 02/19/2021 09/14/2021 Overview: 03/02/21- Two elevated levels on 3 hour GTT. Dx GDM. Leigha Collado APRN.CNM 02/19/21- Elevated 1 hour GCT. 3 hour GTT ordered. Leigha Collado APRN.CNM Current with histo ry of spontaneous [...] as of this encounter (statuses as of 08/25/2023) [facility]09-21-2021 NoteHNO ID: [id number] Author: Wilbert Ortega MD Service: Hospital Medicine Author Type: Physician Type: Progress Notes Filed: 03/16/2021 4:14 PM Note Text: DEPARTMENT OF HOSPITAL MEDICINE PROGRESS NOTE SERVICE DATE: 03/16/2021 SERVICE TIME: 4:10 PM Hospital Medicine/Primary Attending: Wilbert Ortega MD NIGHT AND WEEKEND COVERAGE: [employer]: Days: [phone], please page attending physician. Nights: [phone], please page [place] [facility] Night coverage pager [phone]. Subjective Subjective Patient slowly improving, today oxygen [...] 13 week IUP - spoke with OB bond analyst and reviewed all medications - patient does not have any abdominal pain, vaginal discharge or bleeding. ? ? H/o gestational diabetes -monitor bs on steroids -cover with ssi ?Resolved Problems: * No resolved hospital problems. * Medication and Non-Pharmacologic VTE Prophylaxis/Anticoagulants Anticoagulant AND Antiplatelet Medications (From admission, onward) enox 40 BID standard pro for >100kg Last edited by Karla Dubois [facility] on 03/15/21 at 1339 Start Dose Route Frequency Last Action Ordered Stop 03/13/21 2100 enoxaparin 40 mg injection (LOVENOX) (enoxaparin injection (LOVENOX)) 40 mg SUBCUTANEOUS EVERY 12 HOURS Given, 03/16 0903/13/21 1222 -- 03/11/212114 vte non-pharmacologic prophylaxis - none indicated (fl,oh) VTE Prophylaxis: VTE prophylaxis appropriate Disposition: To be determined Plan of care discussed with: Patient SIGNATURE: Wilbert Ortega MD PATIENT NAME: Tomeka Hernandez DATE: March 16, 2021 TIME: 4:10 PM PAGER/CONTACT #: [id number]. Vincent [id number] NoteHNO ID: [id number] Author: Wilbert Ortega MD Service: Hospital Medicine Author Type: Physician Type: Progress Notes Filed: 03/15/2021 1:39 PM Note Text: DEPARTMENT OF HOSPITAL MEDICINE PROGRESS NOTE SERVICE DATE: 03/15/2021 SERVICE TIME: 1:37 PM Hospital Medicine/Primary Attending: Wiblert Ortega MD NIGHT AND WEEKEND COVERAGE: [employer]OVER[employer]: Days: [phone], please page attending physician. Nights: [phone], please page [place] [facility] Night coverage pager [phone]. Subjective Subjective patient subjectively feels well, saturating [...] 13 week IUP - spoke with OB bond analyst and reviewed all medications - patient does [...] HOURS Given, 03/15 0916 03/13/21 1222 -- 03/11/215 vte non-pharmacologic prophylaxis - none indicated (pa,wy) VTE Prophylaxis: VTE prophylaxis appropriate Disposition: To be determined Plan of care discussed with: Patient SIGNATURE: Wilbert Ortega MD PATIENT NAME: Tomeka Hernandez DATE: March 15, 2021 TIME: 1:37 PM PAGER/CONTACT #: [phone]. Vincent [id number] NoteHNO ID: [id number] Author: Wilbert Ortega MD Service: Hospital Medicine Author Type: Physician Type: Progress Notes Filed: 03/14/2021 11:35 AM Note Text: DEPARTMENT OF HOSPITAL MEDICINE PROGRESS NOTE SERVICE DATE: 03/14/2021 SERVICE TIME: 11:32 AM Hospital Medicine/Primary Attending: Wilbert Ortega MD NIGHT AND WEEKEND COVERAGE: [employer]OVER[employer]: Days: [phone], please page attending physician. Nights: [phone], please page [place] [facility] Night coverage pager [phone]. Subjective Subjective patient subjectively feels the same [...] Most recent labs Assessment/Plan Active Problems: Tomeka Hernandez is a 30 year old female? with [...] 13 week IUP - spoke with OB bond analyst and reviewed all medications - patient does [...] mg SUBCUTANEOUS EVERY 12 HOURS Given, 03/14 0903/13/21 1222 -- 03/11/212114 vte non-pharmacologic prophylaxis - none indicated (fl,oh) VTE Prophylaxis: VTE prophylaxis appropriate Disposition: To be determined Plan of care discussed with: Patient SIGNATURE: Wilbert Ortega MD PATIENT NAME: Tomeka Hernandez DATE: March 14, 2021 TIME: 11:32 AM PAGER/CONTACT #: [id number] NoteHNO ID: [id number] Author: Wilbert Ortega MD Service: Hospital Medicine Author Type: Physician Type: Progress Notes Filed: 03/13/2021 3:20 PM Note Text: DEPARTMENT OF HOSPITAL MEDICINE PROGRESS NOTE SERVICE DATE: 03/13/2021 SERVICE TIME: 2:54 PM Hospital Medicine/Primary Attending: Wilbert Ortega MD NIGHT AND WEEKEND COVERAGE: [employer]: Days: [phone], please page attending physician. Nights: [phone], please page [place] [facility] Night coverage pager [phone]. Subjective Subjective Patient has increased oxygen requirements [...] Most recent labs Assessment/Plan Active Problems: Tomeka Hernandez is a 30 year old female with [...] 13 week IUP - spoke with OB bond analyst and reviewed all medications - patient does [...] SIGNATURE: Wilbert Ortega MD PATIENT NAME: Tomeka Hernandez DATE: March 13, 2021 TIME: 2:54 PM PAGER/CONTACT #: [id number]. Vincent [id number] NoteHNO ID: [id number] Author: Candace Goodson MD Service: Hospital Medicine Author Type: Physician Type: Progress Notes Filed: 03/12/2021 10:39 PM Note Text: DEPARTMENT OF HOSPITAL MEDICINE PROGRESS NOTE SERVICE DATE: 03/12/2021 SERVICE TIME: 10:35 PM Hospital Medicine/Primary Attending: Candace Goodson MD NIGHT AND WEEKEND COVERAGE: [employer]OVER[employer]: Days: [phone], please page attending physician. Nights: [phone], please page [place] [facility] Night coverage pager [phone]. Subjective INTERVAL HPI: Patient is feeling better [...] 100 mg in NaCl 0.9% 250 mL Vial-Mate/ADD-[facility] 100 mg INTRAVENOUS q 24 HR - [...] List COVID POA: Yes HOSPITAL COURSE: Tomeka Hernandez is a 30 year old female who [...] ? 13 week IUP (more content not included)...[facility] Diagnosis Visit for wound check- Primary Encounter for other specified aftercare [facility] Diagnosis care and examination- Primary Routine follow-up Encounter for screening for malignant neoplasm of cervix Screening for malignant neoplasm of the cervix History of gestational diabetes in prior , currently with other poor obstetric history [facility] Diagnosis with uncertain dates, antepartum- Primary state, incidental [facility] Diagnosis with uncertain dates, antepartum- Primary [...] or not applicable [facility]* Diagnosis Obesity in - Primary Obesity complicating , childbirth, or the puerperium, unspecified as to episode of care or not applicable 11 weeks gestation of state, incidental Vaginal irritation Unspecified noninflammatory disorder of vagina H/O section Other postprocedural status [facility] Diagnosis Encounter for screening of mother- Primary Unspecified screening [facility]* Diagnosis Encounter for (NT) nuchal translucency scan- Primary Other specified screening 12 weeks gestation of state, incidental [facility]* Diagnosis History of gestational diabetes in prior , currently - Primary with other poor obstetric history 16 weeks gestation of state, incidental Rh negative state in antepartum period, second trimester Obesity affecting in second trimester, unspecified obesity type Encounter for anatomic survey Tension headache [facility]* Diagnosis History of gestational diabetes in prior , currently - Primary with other poor obstetric history [facility] Diagnosis H/O section- Primary Other postprocedural [...] MMR vaccine Need for prophylactic vaccination with touidlh-tittj-iuamman (MMR) vaccine documented [facility] Diagnosis Encounter for anatomic survey- Primary Obesity in Obesity complicating , childbirth, or the puerperium, unspecified as to episode of care or not applicable Obesity affecting in second trimester, unspecified obesity type 19 weeks gestation of state, incidental [facility]* Diagnosis Elevated fasting blood sugar- Primary Impaired fasting glucose [facility]* Diagnosis 34 weeks gestation of - Primary state, incidental Obesity affecting in third trimester, unspecified obesity type [facility] Diagnosis 34 weeks gestation of state, incidental Obesity affecting in third trimester, unspecified obesity type [facility] Diagnosis Encounter for supervision of other normal in third trimester- Primary 36 weeks gestation of state, incidental Obesity affecting in third trimester, unspecified obesity type [facility] Diagnosis Encounter for ultrasound to check growth- Primary Encounter for routine screening for malformation using ultrasonics Obesity affecting in third trimester, unspecified obesity type 36 weeks gestation of state, incidental [facility] Diagnosis Obesity affecting in third trimester, unspecified obesity type- Primary Encounter for supervision of other normal in third trimester 37 weeks gestation of state, incidental [facility] Diagnosis Encounter for supervision of other normal in third trimester- Primary Obesity affecting in third trimester, unspecified obesity type 38 weeks gestation of state, incidental H/O section Other postprocedural status documented in this encounter [facility] for referral (narrative)* Diagnostic Procedure Only (Routine) - Pending Review Specialty Diagnoses / Procedures Referred By Gianna t Referred To Contact [facility] Diagnoses with uncertain dates, antepartum Procedures NUCHAL TRANSLUCENCY WHI US NUCHAL TRANSLUCENCY 1ST GESTATION Juliana Puente APRN.CNP [address] [place] [place] [address] [facility] [address] [place] [address] Referral ID Status Reason Start Date Expiration Date Visits Requested Visits Authorized [id number] Pending Review Auto-Generat ed Referral 01/25/2023 01/25/2024 1 1 [facility] for referral (narrative)* Diagnostic Procedure Only (Routine) - Pending Review Specialty Diagnoses / Procedures Referred By Gianna t Referred To Contact [facility] Diagnoses Obesity in Procedures OBSTETRIC ULTRASOUND WHI US PREG UTERUS AFTER 1ST TRIMEST GESTATION Yenni Catalan MD [address] [place] [address] [facility] [address] [place] [address] Referral ID Status Reason Start Date Expiration Date Visits Requested Visits Authorized [id number] Pending Review Auto-Generat ed Referral 02/23/2023 02/23/2024 1 1 T [facility] for referral (narrative)* Outpatient Procedure (Routine) - Authorized Specialty Diagnoses / Procedures Referred By Contac t Referred To Contact [facility] Diagnoses 34 weeks gestation of Obesity affecting in third trimester, unspecified obesity type Procedures NON-STRESS TEST NON-STRESS TEST Yenni Catalan MD [address] [place] [place] [address] [facility] [address] [place] [address] Referral ID Status Reason Start Date Expiration Date Visits Requested Visits Authorized [id number] Authorized Auto-Generat ed Referral 07/28/2023 07/27/2024 6 1 * Diagnostic Procedure Only (Routine) - Authorized Specialty Diagnoses / Procedures Referred By Contsilvana t Referred To Contact [facility] Diagnoses 34 weeks gestation of Obesity affecting in third trimester, unspecified obesity type Procedures OBSTETRIC ULTRASOUND WHI US PREG UTERUS AFTER 1ST TRIMEST GESTATION Yenni Catalan MD [address] [place] [address] [facility] [address] [place] [address] Referral ID Status Reason Start Date Expiration Date Visits Requested Visits Authorized [id number] Authorized Auto-Generat ed Referral 07/28/2023 07/27/2024 1 1 [facility] Summary Purpose Family History No Family History Records FoundNo Family History Records Found Advance Directives No Advanced Directives Records FoundDocuments on File Type Date Recorded Patient Machine Cell Tuber Expl anation Advance Directive(s) 03/11/2021 6:09 PM Advance Directive(s) 07/16/2020 7:02 AM Health Concerns Problem Noted Date Diagnosed Date [facility] 01/25/2023 [place] 01/25/2023 Problem Noted Date Diagnosed Date [facility] - [facility] 01/25/2023 [facility] - [place] 01/25/2023 Problem Noted Date Diagnosed Date [facility] 01/25/2023 Education - [place] 01/25/2023 Problem Noted Date Diagnosed Date [facility] 01/25/2023 Education - [place] 01/25/2023 Problem Noted Date Diagnosed Date [facility] 01/25/2023 Education - [place] 01/25/2023 Problem Noted Date Diagnosed Date [facility] 01/25/2023 Education - [place] 01/25/2023 Problem Noted Date Diagnosed Date [facility] - [facility] 01/25/2023 Education - [place] 01/25/2023 Problem Noted Date Diagnosed Date [facility] 01/25/2023 Education - [place] 01/25/2023 Problem Noted Date Diagnosed Date [facility] 01/25/2023 Education - [place] 01/25/2023 Problem Noted Date Diagnosed Date [facility] 01/25/2023 Education - [place] 01/25/2023 Problem Noted Date Diagnosed Date [facility] 01/25/2023 Education - [place] 01/25/2023 Problem Noted Date Diagnosed Date [facility] 01/25/2023 Education - [place] 01/25/2023 Problem Noted Date Diagnosed Date [facility] 01/25/2023 Education - [place] 01/25/2023 Problem Noted Date Diagnosed Date [facility] 01/25/2023 Education - [place] 01/25/2023 Problem Noted Date Diagnosed Date [facility] 01/25/2023 Education - [place] 01/25/2023 Problem Noted Date Diagnosed Date [facility] 01/25/2023 Education - [place] 01/25/2023 Additional Source Comments INFORMATION SOURCE (unrecogn ized section and content) DATE CREATED AUTHOR AUTHOR'S JOSEFINA ATCESAR 08/26/2023 [facility] Source Comments (unrecognize d section and content) In the event this informatio n is protected by the Federal Confidentiality of Alcohol and Drug Abuse Patient Records regulations: The Federal rules restrict any use of the information to criminally investigate or prosecute any alcohol or drug abuse patient.[facility] the event this information is protected by the Federal Confidentiality of Alcohol and Drug Abuse Patient Records regulations: The Federal rules restrict any use of the information to criminally investigate or prosecute any alcohol or drug abuse patient.[facility] the event this information is protected by the Federal Confidentiality of Alcohol and Drug Abuse Patient Records regulations: The Federal rules restrict any use of the information to criminally investigate or prosecute any alcohol or drug abuse patient.[facility] the event this information is protected by the Federal Confidentiality of Alcohol and Drug Abuse Patient Records regulations: The Federal rules restrict any use of the information to criminally investigate or prosecute any alcohol or drug abuse patient.[facility] the event this information is protected by the Federal Confidentiality of Alcohol and Drug Abuse Patient Records regulations: The Federal rules restrict any use of the information to criminally investigate or prosecute any alcohol or drug abuse patient.[facility] the event this information is protected by the Federal Confidentiality of Alcohol and Drug Abuse Patient Records regulations: The Federal rules restrict any use of the information to criminally investigate or prosecute any alcohol or drug abuse patient.[facility] the event this information is protected by the Federal Confidentiality of Alcohol and Drug Abuse Patient Records regulations: The Federal rules restrict any use of the information to criminally investigate or prosecute any alcohol or drug abuse patient.[facility] the event this information is protected by the Federal Confidentiality of Alcohol and Drug Abuse Patient Records regulations: The Federal rules restrict any use of the information to criminally investigate or prosecute any alcohol or drug abuse patient.[facility] the event this information is protected by the Federal Confidentiality of Alcohol and Drug Abuse Patient Records regulations: The Federal rules restrict any use of the information to criminally investigate or prosecute any alcohol or drug abuse patient.[facility] the event this information is protected by the Federal Confidentiality of Alcohol and Drug Abuse Patient Records regulations: The Federal rules restrict any use of the information to criminally investigate or prosecute any alcohol or drug abuse patient.[facility] the event this information is protected by the Federal Confidentiality of Alcohol and Drug Abuse Patient Records regulations: The Federal rules restrict any use of the information to criminally investigate or prosecute any alcohol or drug abuse patient.[facility] the event this information is protected by the Federal Confidentiality of Alcohol and Drug Abuse Patient Records regulations: The Federal rules restrict any use of the information to criminally investigate or prosecute any alcohol or drug abuse patient.[facility] the event this information is protected by the Federal Confidentiality of Alcohol and Drug Abuse Patient Records regulations: The Federal rules restrict any use of the information to criminally investigate or prosecute any alcohol or drug abuse patient.[facility] the event this information is protected by the Federal Confidentiality of Alcohol and Drug Abuse Patient Records regulations: The Federal rules restrict any use of the information to criminally investigate or prosecute any alcohol or drug abuse patient.[facility] the event this information is protected by the Federal Confidentiality of Alcohol and Drug Abuse Patient Records regulations: The Federal rules restrict any use of the information to criminally investigate or prosecute any alcohol or drug abuse patient.[facility] the event this information is protected by the Federal Confidentiality of Alcohol and Drug Abuse Patient Records regulations: The Federal rules restrict any use of the information to criminally investigate or prosecute any alcohol or drug abuse patient.[facility] the event this information is protected by the Federal Confidentiality of Alcohol and Drug Abuse Patient Records regulations: The Federal rules restrict any use of the information to criminally investigate or prosecute any alcohol or drug abuse patient.[facility] the event this information is protected by the Federal Confidentiality of Alcohol and Drug Abuse Patient Records regulations: The Federal rules restrict any use of the information to criminally investigate or prosecute any alcohol or drug abuse patient.[facility] the event this information is protected by the Federal Confidentiality of Alcohol and Drug Abuse Patient Records regulations: The Federal rules restrict any use of the information to criminally investigate or prosecute any alcohol or drug abuse patient.[facility] East[facility] the event this information is protected by the Federal Confidentiality of Alcohol and Drug Abuse Patient Records regulations: The Federal rules restrict any use of the information to criminally investigate or prosecute any alcohol or drug abuse patient.[facility] Care Teams (unrecognized sec tion and content) Career Counselor Relationship Specialty Start Date End Date Jose M Cabrales MD [address] [place] [address] PCP - General 10/03/00 Career Counselor Relationship Specialty Start Date End Date Jose M Cabrales MD [address] [place], [place] [address] PCP - General 10/03/00 Career Counselor Relationship Specialty Start Date End Date Jose M Cabrales MD [address] [place], [place] [address] PCP - General 10/03/00 Career Counselor Relationship Specialty Start Date End Date Jose M Cabrales MD [address] [place] [address] PCP - General 10/03/00 Career Counselor Relationship Specialty Start Date End Date Jose M Cabrales MD [address] [place] [address] PCP - General 10/03/00 Career Counselor Relationship Specialty Start Date End Date Jose M Cabrales MD [address] [place], [place] [id number] PCP - General 10/03/00 Career Counselor Relationship Specialty Start Date End Date Jose M Cabrales MD [address] [place] [address] PCP - General 10/03/00 Career Counselor Relationship Specialty Start Date End Date Jose M Cabrales MD [address] [place] [address] PCP - General 10/03/00 Career Counselor Relationship Specialty Start Date End Date Jose M Cabrales MD [address] [place] [address] PCP - General 10/03/00 Career Counselor Relationship Specialty Start Date End Date Jose M Cabrales MD [address] [place] [address] PCP - General 10/03/00 Career Counselor Relationship Specialty Start Date End Date Jose M Cabrales MD [address] [place], [place] [address] PCP - General 10/03/00 Career Counselor Relationship Specialty Start Date End Date Jose M Cabrales MD [address] [place], [place] [address] PCP - General 10/03/00 Career Counselor Relationship Specialty Start Date End Date Jose M Cabrales MD [address] [place] [id number] PCP - General 10/03/00 Career Counselor Relationship Specialty Start Date End Date Jose M Cabrales MD [address] [place], [place] [address] PCP - General 10/03/00 Career Counselor Relationship Specialty Start Date End Date Jose M Cabrales MD [address] [place], [place] [address] PCP - General 10/03/00 Career Counselor Relationship Specialty Start Date End Date Jose M Cabrales MD [address] [place], [place] [address] PCP - General 10/03/00 Reason for Visit (unrecogniz ed section and content) Reason Onset Date Comments Care 02/23/2023 Reason Comments US Specialty Diagnoses / Procedures Referred By Gianna t Referred To Contact [facility] Diagnoses with uncertain dates, antepartum Procedures NUCHAL TRANSLUCENCY WHI US NUCHAL TRANSLUCENCY 1ST GESTATION Juliana Puente, HEALTH OUTREACH WORKER.BRICKLAYER APPRENTICE [address] [place] [address] [address] Referral ID Status Reason Start Date Expiration Date V isits Requested Visits Authorized [id number] Closed Auto-Generate d Referral 01/25/2023 01/25/2024 1 1 Reason Onset Date Comments Care 03/30/2023 Reason Onset Date Comments Care 04/21/2023 Specialty Diagnoses / Procedures Referred By Contac t Referred To Contact [facility] Diagnoses Obesity in Procedures OBSTETRIC ULTRASOUND WHI US PREG UTERUS AFTER 1ST TRIMEST GESTATION Yenni Catalan MD [address] [place] [place] [address] [address] Referral ID Status Reason Start Date Expiration Date V isits Requested Visits Authorized [id number] Closed Auto-Generate d Referral 04/21/2023 06/25/2023 1 1 Reason Comments Results Reason Onset Date Comments Care 07/28/2023 Reason Onset Date Comments Care 08/04/2023 Specialty Diagnoses / Procedures Referred By Contac t Referred To Contact [facility] Diagnoses 34 weeks gestation of Obesity affecting in third trimester, unspecified obesity type Procedures NON-STRESS TEST NON-STRESS TEST Yenni Catalan MD [address] [place] [address] [address] Referral ID Status Reason Start Date Expiration Date V isits Requested Visits Authorized [id number] Closed Auto-Generate d Referral 07/28/2023 07/27/2024 6 1 Reason Onset Date Comments Care 08/11/2023 Specialty Diagnoses / Procedures Referred By Contac t Referred To Contact [facility] Diagnoses 34 weeks gestation of Obesity affecting in third trimester, unspecified obesity type Procedures OBSTETRIC ULTRASOUND WHI US PREG UTERUS AFTER 1ST TRIMEST GESTATION Yenni Catalan MD [address] [place] [place] [address] [address] [address] [place] [address] Referral ID Status Reason Start Date Expiration Date V isits Requested Visits Authorized [id number] Closed Auto-Generate d Referral 07/28/2023 07/27/2024 1 1 Reason Onset Date Comments Care 08/18/2023 Reason Onset Date Comments Care 08/25/2023 FOR RECORDS PERTAINING TO PATIENTS WHO ARE [...] BE BASED ON THE PRIMARY CLINICAL RECORDS. [employer] [facility]. provides no warranty or guarantee of the accuracy or completeness of information in this document.
[2023-09-01 10:00] LABS: Absolute Lymphocyte Count 2.09 X10^3/uL (0.83-4.51); Absolute Neutrophil Count 9.7 X10^3/uL (2.0-7.7); Basophil# 0.04 X10^3/uL; Basophil% 0.3 % (0-1); Eosinophils% 0.8 % (0-5); Hematocrit 37.9 % (37-47); Hemoglobin 12.1 g/dL (12.0-15.0); Lymphocyte # 2.09 X10^3/ul (0.83-4.51); Lymphocyte % 16.7 % (19-41); Mean Corp Hgb Conc 31.9 g/dL (32-36); Mean Corpuscular Hgb 29.7 pg (27.0-32.0); Mean Corpuscular Volume 92.9 fL (81-99); Mean Platelet Vol. 11.8 fl (6.2-12.0); NRBC Flagged by Analyzer 0 % (0-5); Neutrophil # 9.67 X10^3/uL (2.7-7.7); Neutrophil % 77.2 % (47-70); Platelet Count 183 K/mm3 (150-450); RBC Distribution Width CV 14.6 % (11.6-14.6); RBC Distribution Width SD 49.5 fl (35.1-43.9); Red Blood Count 4.08 M/mm3 (4.2-5.4); White Blood Count 12.5 K/mm3 (4.4-11.0)
[2023-09-01 10:27] LABS: Syphilis Antibodies Non-reactive
[2023-09-01] MEDS: Acetaminophen 500 MG Tablet 1000 MG PO ×3 (11:14→23:57)
[2023-09-01] MEDS: Lactated Ringers 1,000 ML 150 ML IV (11:15)
[2023-09-01] MEDS: Sodium Citrate/Citric Acid 30 ML UDC PO (11:44)
[2023-09-01] MEDS: Cefazolin 3 GM in 0.9% Normal Saline (100mL Bag) 100 ML IV (11:44)
--- NOTE | 2023-09-01 12:07 | PCM.HP.OB ---
HPI - General General Date of Admission: 09/01/23 Date of Service: 09/01/23 HPI Narrative KYLEIGH SANCHEZ, is a 32 F who presents for repeat - . Maternal Data Information Final ANUJA: 09/05/23 Gestational age: 39&3 PFSH PFSH Medical History (Updated 09/01/23 @ 09:52 by Brenda Rodriguez) Anxiety Asthma Depression Gestational diabetes Gestational diabetes requiring insulin LGA (large for gestational age) fetus Polyhydramnios Home Medications aspirin 81 mg tablet,delayed release (Klever Low Dose Aspirin) [address] order 07/03/23 [History Last Taken 08/25/23 21:00 81 mg] sertraline 50 mg tablet (Zoloft) 50 mg PO DAILY DEPRESSION 07/03/23 [History Last Taken 08/31/23 21:00 50 mg] albuterol sulfate 90 mcg/actuation aerosol inhaler 2 puff inhalation Q6H PRN shortness of breath or wheezing 09/01/23 [History Last Taken 07/21/23 17:00 2 puff] vit no.95-ferrous fumarate 28 mg-folic acid 800 mcg tablet () 1 tab PO DAILY 09/01/23 [History Last Taken 08/31/23 21:00 1 TAB] Allergy/AdvReac Type Severity Reaction Status Date / Time No Known Allergies Allergy Verified 09/01/23 09:40 Surgical History (Updated 09/01/23 @ 12:[address] Zev Olvera MD) History of surgery S/P primary low transverse [place] teeth extracted Social History Smoking Status: Never smoker History Elective abortions Hx Para 1 Spontaneous abortions Hx # Term Pregnancies Ectopic pregnancies Hx # Pregnancies Multiple births # of living children Vital Signs Vital Signs Vital Signs: 09/01/23 09:21 09/01/23 09:21 09/01/23 09:21 Temperature Temperature Source Temporal Pulse Rate 87 Respiratory Rate Blood Pressure 129/77 H Blood Pressure Mean BP Systolic 129 BP Diastolic 77 Blood Pressure Source Blood Pressure Position Blood Pressure Location Pulse Ox Oxygen Delivery Method 09/01/23 09:21 09/01/23 09:21 09/01/23 09:21 Temperature 97.5 F L Temperature Source Pulse Rate Respiratory Rate 20 H Blood Pressure Blood Pressure Mean BP Systolic BP Diastolic Blood Pressure Source Blood Pressure Position Blood Pressure Location Pulse Ox 99 Oxygen Delivery Method 09/01/23 10:29 Temperature 97.5 F L Temperature Source Temporal Pulse Rate 87 Respiratory Rate 20 H Blood Pressure 122/77 H Blood Pressure Mean 92 BP Systolic BP Diastolic Blood Pressure Source Monitor Blood Pressure Position Semi-Fowlers Blood Pressure Location Right Arm Pulse Ox 99 Oxygen Delivery Method Room Air Weight Weight: 276 lb 7.355 oz Body Mass Index (BMI) 42.0 Labs Labs Labs: Blood Type B NEGATIVE Antibody Screen NEGATIVE Hct 37.9 % (37-47) Hgb 12.1 g/dL (12.0-15.0) Syphilis Total Ab Non-reactive Assessment & Plan (1) Previous section: PLAN: Plan Admit to L&D MOD - repeat Plan for routine PP care
--- NOTE | 2023-09-01 12:16 | EX.PCM.OBRPT ---
Maternal Data Information Final ANUJA: 09/05/23 Gestational age: 39&3 Details Operative Information Pre-Operative Diagnosis: (1) Prior section Post-Operative Diagnosis: Same Indications for : Repeat Elective Indications Narrative: The patient was taken to the operating room where spinal anesthesia was placed & found to be adequate. She was prepped and draped in the dorsal supine position with a leftward tilt. A Pfannenstiel skin incision was made approximately 2 cm above the symphysis pubis and carried through to the underlying fascia with the scalpel. The fascia was incised incised in the midline and extended laterally with the Arredondo scissors. The rectus muscles were in the midline and the peritoneum was entered carefully and bluntly. The peritoneal incision was stretched and the bladder blade was inserted. Vesicouterine peritoneum was tented up, incised & then bladder flap created gently. The uterine incision was made in a low transverse fashion with the scalpel and extended superiorly and inferiorly with blunt dissection. The infant's head was brought to the incision in the flexed position and delivered without difficulty. The head was gently guided to allow delivery of the anterior and posterior shoulders. The body then delivered with fundal pressure in the standard fashion. The 3VC cord was clamped and cut. The was handed off to the waiting group practice pediatrician. The placenta was delivered with fundal massage and gentle traction in the standard fashion. The uterus was exteriorized and cleared of clots and debris. The uterine incision was closed with #1 Vicryl suture in a running locked fashion. Monocryl suture was used in an imbricating fashion. The incision was examined and was found to be hemostatic. The uterus was returned to the abdominal cavity. After irrigating [place] was placed over the uterine incision as some areas were denuded (but hemostatic). The rectus muscle was examined and any bleeding was Bovie cauterized. The fascia was closed with PDS suture in a running standard fashion. The subcutaneous tissue was examining and any bleeding was Bovie cauterized. The subcutaneous tissue was reapproximated with interrupted sutures. The skin was closed in a subcuticular fashion by the BAND MASTER while I was present in the labor & delivery unit. The remainder of the procedure was performed by me with assistance. All sponge, lap, and needle counts were correct. The patient was taken to her room for recovery in a stable condition. Classification: Scheduled Procedure Type: low transverse manager of change #1: Olayinka Randle Type of Anesthesia: Spinal Antibiotic Given: Ancef 3 grams IV x1 Drain: Zimmerman to straight drain Estimated Blood Loss: 900ml Fluids Replaced: 1250ml Procedure Start Time: 12:32 Procedure Stop Time: 13:08 Findings Description of Procedure: Normal maternal uterus and adnexa Presentation: Positive for Vertex Amniotic Membrane Rupture Type: Artificial Amniotic Fluid Description: Clear Placental Delivery Description: Expressed Placenta Disposition: [facility] Cord Vessel Description: 3 Vessels Cord Entanglement: None Infant A Gender: Female (Cathi, weight = 3630g) (1 minute): 8 (5 minute): 8 Delayed Cord Clamping: No Complications Complications: none
[2023-09-01] MEDS: Oxytocin 15 Units/NS 250ml 15 UNITS/250 ML IV.SOLN 83 UNITS IV (13:20)
--- NOTE | 2023-09-01 13:43 | NURSING ---
1330-moderate gush w fundal assessment. firm u-1 midline
--- NOTE | 2023-09-01 13:59 | NURSING ---
1345- small shreddy clot noted w fundal assessment. firm u-1
[2023-09-01] MEDS: Ketorolac 30 MG/ML Syringe IV ×2 (14:11→20:12)
[2023-09-01] MEDS: Lactated Ringers 1,000 ML 100 ML IV (16:27)
[2023-09-01] MEDS: Rho(D) Immune Globulin 300 MCG (1500 Unit) Syringe IV (18:39)
[2023-09-01] MEDS: 0.9% Saline Lock 10 ML Syringe IV (20:11)
[2023-09-01] MEDS: Sertraline 50 MG Tablet PO (20:12)
[2023-09-02 00:20] VITALS: RESP 16; O2SAT 96
[2023-09-02 01:20] VITALS: RESP 16; O2SAT 96
[2023-09-02] MEDS: 0.9% Saline Lock 10 ML Syringe IV (02:11)
[2023-09-02] MEDS: Ketorolac 30 MG/ML Syringe IV ×2 (02:11→08:23)
[2023-09-02] MEDS: Enoxaparin 40 MG/0.4 ML Syringe SC ×2 (02:11→13:17)
[2023-09-02 02:20] VITALS: RESP 18; O2SAT 97
[2023-09-02 04:20] VITALS: BP 102/54; PULSE 78; RESP 14; TEMP 36.4; O2SAT 98
[2023-09-02 04:35] LABS: Hematocrit 30.1 % (37-47); Hemoglobin 9.6 g/dL (12.0-15.0); Mean Corp Hgb Conc 31.9 g/dL (32-36); Mean Corpuscular Hgb 29.6 pg (27.0-32.0); Mean Corpuscular Volume 92.9 fL (81-99); Mean Platelet Vol. 11.3 fl (6.2-12.0); Platelet Count 155 K/mm3 (150-450); RBC Distribution Width CV 14.6 % (11.6-14.6); RBC Distribution Width SD 50.2 fl (35.1-43.9); Red Blood Count 3.24 M/mm3 (4.2-5.4); White Blood Count 10.7 K/mm3 (4.4-11.0)
[2023-09-02] MEDS: Acetaminophen 500 MG Tablet 1000 MG PO ×2 (06:02→13:16)
[2023-09-02 08:20] VITALS: BP 122/68; PULSE 86; RESP 16; O2SAT 98
[2023-09-02 08:28] VITALS: BP 122/68; PULSE 86; RESP 16; TEMP 36.3; O2SAT 97
--- NOTE | 2023-09-02 09:43 | CASEMGMT ---
Addendum entered by Yaneth Gamble 09/02/23 10:05: Social Work No tox screens completed on MOB or baby on this admission. MAYURI Stovall Original Note: Social Work Labor and Delivery Unit Date/Time of referral: 09/01/2023, 3pm Referred by: Zev Olvera MD Date/Time of intervention: 09/02/23, 8:45am Reason for referral: depression and anxiety History obtained from: MOB, medical record Household composition: ROSSY SALINAS, 2 year old and now baby Cathi. MOB and FOLisseth have been together for 12 years. Medical History: MOB--asthma, gestational diabetes, ADD and anxiety. Baby: Born 09/01/23 at 13:29, Apgars 8 and 8 at one and five minutes, 3.63 kg Educational status: RITA has associates degree, ROSSY has Bachelors Financial Status: No financial concerns. 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 ROSSY works for [employer]. RITA plans to take maternity leave but does plan to return. ROSSY's sister will watch the children supplies: They have all needed supplies including crib, bassinet, car seat, clothing, diapers, wipes, access to formula as needed Childcare/Caregivers: MOB, ROSSY, FOB's sister, FOLisseth's aunt, MOB's sister, MOB's mother Transportation: They have 2 vehicles Programs/agencies involved: None Children's Services/legal issues: None Behavioral Health: Substance abuse: None for MOB or FOB. Mental Health: RITA states ROSSY has depression and anxiety, is on Zoloft, has been in counseling in the past but not at present. RITA: States has anxiety, was on Wellbutrin, switched to Zoloft when . RITA plans to speak w/her physician about going back to Wellbutrin. She does feel the Zoloft is helpful and her mood has been stable, however she states she prefers the Wellbutrin. RITA has not been in counseling, has not felt the need for it. She states this came on about a year ago, and she attributes it to her prior job. She states she likes her current job and her symptoms are much better at this time. Family/Social Stressors: None Support systems: In addition to the people mentioned above who help w/childcare, she states her 's sister and her 's entire family are very supportive. Depression/Anxiety/Shaken Baby/Safe Sleeping/Counseling Resources/Mental Health Hotlines/Help Me Grow/[facility] Resources: SW gave MOB resources on all of these topics and reviewed the information. SW reviewed in particular the information about PPD and anxiety and warning signs. SW encouraged MOB if she is having symptoms to speak w/her physician about medication(she already plans to do this). SW also encouraged her to consider counseling should she have symptoms. MOB states understanding. Assessment: MOB open w/SW, answered all questions. SW did not observe MOB interacting with the baby as the baby was sleeping. MOB voiced no concerns. No homegoing concerns at this time. Plan: Baby to go home w/MOB and FOB, no further social service needs anticipated at this time. MAYURI Stovall
[2023-09-02] MEDS: Senna/Docusate Sodium 1 Tablet PO (10:16)
--- NOTE | 2023-09-02 11:42 | PCM.PN.OB ---
Subjective Subjective Denies complaints Objective Data Objective Data Vital Signs: Vital Signs Temp Pulse Resp BP Pulse Ox O2 Del Method 97.4 F L 86 16 122/68 H 97 Room Air 09/02/23 08:28 09/02/23 08:28 09/02/23 08:28 09/02/23 08:28 09/02/23 08:28 09/02/23 08:28 Oxygen Delivery Method Room Air Weight: 276 lb 7.355 oz Body Mass Index (BMI) 42.0 Intake & Output: Intake and Output for Last 24 Hours 08/31/23 09/01/23 09/02/23 23:59 23:59 23:59 Intake Total 2370 / 2370 810 / 810 Output Total 2575 / 2575 300 / 300 Balance -205 / -205 510 / 510 Lab / Micro Data Attestation: I reviewed the patient's lab results. 09/02/23 04:25 Labs: Laboratory Results - last 24 hr 09/01/23 09:20: Blood Type B NEGATIVE, Antibody Screen NEGATIVE 09/01/23 15:40: Screen NEGATIVE, Baby's Blood Type B POSITIVE, Baby's STEVE NEGATIVE 09/02/23 04:25: WBC 10.7, RBC 3.24 L, Hgb 9.6 L, Hct 30.1 L, MCV 92.9, MCH 29.6, MCHC 31.9 L, RDW Std Deviation 50.2 H, RDW Coeff of Ashwin 14.6, Plt Count 155, MPV 11.3 Physical Exam Const alert, oriented x3 and no apparent distress HEENT normocephalic GI soft to palpation, non-tender and non-distended GI Narrative: fundus firm, mid & below umbilicus Incision - bandage c/d/i Extremity normal to inspection and no calf tenderness Assessment & Plan (1) Delivered by delivery following previous delivery: COMMENT: POD#1 PLAN: Plan Heme - HDS, CBC reviewed ID - AF, no signs infection GI/ - no issues D/C home later today per patient request
--- NOTE | 2023-09-02 11:43 | PCM.DC.SUM ---
Providers Date of Admission: 09/01/23 Date of Discharge: 09/02/23 Primary Care Physician: Lauren Fleming DO Reason For Visit: REPEAT Diagnosis Discharge Diagnosis (1) Delivered by delivery following previous delivery: Status: Acute Code(s): O34.219 - Maternal care for unspecified type scar from previous delivery Plan Heme - HDS, CBC reviewed ID - AF, no signs infection GI/ - no issues D/C home later today per patient request Medications at Discharge Home Medications sertraline 50 mg tablet (Zoloft) 50 mg PO DAILY DEPRESSION 07/03/23 albuterol sulfate 90 mcg/actuation aerosol inhaler 2 puff inhalation Q6H PRN shortness of breath or wheezing 09/01/23 vit no.95-ferrous fumarate 28 mg-folic acid 800 mcg tablet () 1 tab PO DAILY 09/01/23 acetaminophen 500 mg tablet 1,000 mg (2 x 500 mg) PO Q6H #0 tabs 09/02/23 ibuprofen 600 mg tablet 600 mg PO Q6H #0 tabs 09/02/23 Hospital Course Operations section Summary of Care Provided Minutes Spent on Discharge: 15 Weight / BMI Weight Weight: 276 lb 7.355 oz Body Mass Index (BMI) 42.0 ABG / Lab / Microbiology Data 09/02/23 04:25 Laboratory: Laboratory Results - last 24 hr 09/01/23 09:20: Blood Type B NEGATIVE, Antibody Screen NEGATIVE 09/01/23 15:40: Screen NEGATIVE, Baby's Blood Type B POSITIVE, Baby's STEVE NEGATIVE 09/02/23 04:25: WBC 10.7, RBC 3.24 L, Hgb 9.6 L, Hct 30.1 L, MCV 92.9, MCH 29.6, MCHC 31.9 L, RDW Std Deviation 50.2 H, RDW Coeff of Ashwin 14.6, Plt Count 155, MPV 11.3 D/C Instructions Discharge Diet: No restrictions Discharge Activity: May Shower May resume sexual activity in: 6 weeks Weight Bearing Status: Weight bearing as tolerated Call your doctor if your incision/area has: Continuous Slow Oozing, Sudden Increased Bleeding, Increased Pain/ Swelling, Increased Redness, Foul Smelling Discharge and Swelling at the incision site Call your doctor if you observe: Fever of 101 or Higher, Coldness, Increased Pain, Change in Color, Inability to urinate, Inability to have a bowel movement, Using more than 1 pad per hour, Shortness of breath, Dizziness, Fainting spells, Chest pain, Increased palpitations (irregular heartbeat), Calf discomfort and Uncontrolled pain Suture Line Care: Avoid Pulling/Pushing and Avoid Pinching/Bending Remove Dressing in: 1 week Cleanse incision/area with: Soap & Water Please Follow Up With: Zev Olvera MD When: Follow up in 2 and 6 weeks for visits. Meaningful Use Info Meaningful Use Diagnoses (Choose all that apply): None applicable Discharge Plan Admission Admit Date/Time: 09/01/23 09:00 Primary Reason for Your Visit: section Attending Provider: Zev Olvera Primary Care Provider: Lauren Fleming Discharge Orders/Prescriptions Prescriptions: New acetaminophen 500 mg Tablet 1,000 mg PO Q6H Qty: 0 0RF ibuprofen 600 mg Tablet 600 mg PO Q6H Qty: 0 0RF Continued PNV cmb#95-ferrous fumarate-FA [] 28 mg iron- 800 mcg tablet 1 tab PO DAILY albuterol sulfate 90 mcg/actuation HFA aerosol inhaler 2 puff INHALATION Q6H PRN (Reason: shortness of breath or wheezing) Patient Comments: INHALE 1 PUFF EVERY 6 HOURS NEEDED sertraline [Zoloft] 50 mg tablet 50 mg PO DAILY Discontinued aspirin [Klever Low Dose Aspirin] 81 mg tablet,delayed release (DR/EC) 81 mg PO DAILY Referrals / Follow Up: Lauren Fleming DO [Primary Care Provider] - Disposition Disposition (needs filled in before D/C Order can be placed): Home, Self Care
[2023-09-02] MEDS: MEASLES,MUMPS,RUBELLA VACC/PF 0.5 ML SC (13:37)
== END 2023-09-02 14:10 | disposition home or self-care (01) | DRG 788 ==
PROVIDERS: Admitting Provider Obstetrics & Gynecology; PCP Family Medicine; Visit Provider Obstetrics & Gynecology
PROC: 10D00Z1 Extraction of Products of Conception, Low, Open Approach (ICD-10-PCS; CPT 59514; principal; 2023-09-01 11:45)
DX: O34.211 Maternal care for low transverse scar from previous cesarean delivery (principal); Z37.0 Single live birth; Z3A.39 39 weeks gestation of pregnancy; Z79.82 Long term (current) use of aspirin
CPT/HCPCS: 59025; 59050; 85025; 85027; 85461; 86780; 86850; 86900; 86901; 90384; 99221; J7120; A4216; G0378; J2405; J2790; J2791

== ENCOUNTER 2023-10-13 14:52 | Emergency (ER) | payer OTHER, SELFPAY ==
[2023-10-13 14:55] VITALS: BP 126/64; PULSE 70; RESP 18; TEMP 35.8; O2SAT 97; BMI 40.1
--- NOTE | 2023-10-13 15:54 | CT_ITS ---
INDICATION: Kidney Stone EXAMINATION: CT ABDOMEN AND PELVIS WITHOUT CONTRAST - CT Abdomen And Pelvis W/O Contrast Injection TECHNIQUE: Helically acquired images were obtained of the abdomen and pelvis without oral or IV contrast. A radiation dose optimization technique was used for this scan. IV Contrast dosage and agent: None. Oral contrast: None. COMPARISON: None. FINDINGS: LOWER CHEST: Lung bases are clear. No cardiomegaly or pericardial effusion. LIVER: Homogeneous hepatic steatosis. No focal mass. GALLBLADDER AND BILIARY TREE: No calcified gallstones. No gallbladder distension or wall edema. No intra- or extrahepatic biliary ductal dilation. PANCREAS: No focal cystic or solid mass. SPLEEN: Normal size without focal cystic or solid mass. ADRENAL GLANDS: No nodules. KIDNEYS AND URETERS: Normal renal size and position. No hydronephrosis. PERITONEUM: No ascites or free air. No other fluid collection. BOWEL: No evidence of acute appendicitis. No stomach or bowel distension. No focal inflammatory change. LYMPH NODES: No enlarged mesenteric or retroperitoneal lymph nodes. VESSELS: Aorta is non-dilated. URINARY BLADDER: 5 mm right ureterovesical junction stone as measured on coronal reformats with mild to moderate right hydronephrosis. Minimal right perinephric periureteral stranding. Nonobstructive 5 mm left renal stone. No left hydronephrosis. Normal left ureter. Unremarkable renal cortex. REPRODUCTIVE ORGANS: Unremarkable uterus and adnexa. ABDOMINAL WALL: No discrete abdominal or pelvic wall hernia. BONES: No lytic or blastic abnormality. CT/Abdomen/Pelvis without Cont IMPRESSION: 5 mm right ureterovesical junction stone with mild to moderate hydronephrosis Additional nonobstructive left renal stone. Hepatic steatosis. Electronically Signed: Yehuda Hughes MD at 17:16 EDT ,
--- NOTE | 2023-10-13 15:56 | ED.VIS.GI ---
HPI HPI - GI History of Present Illness Chief Complaint: Flank Pain Narrative Narrative: 32-year-old female presents with right flank pain. She is status post giving 6 weeks ago, not breast-feeding. She relates history that on Monday morning, approximately 2 days ago, she awoke with sudden onset of right flank pain radiating towards the front. She had gone to urgent care initially. Denies any fever or chills, no hematuria, but states she had an ultrasound performed and they suggested that she go to the ED in [place] for a CT scan with suspicion of kidney stone. She states she was diagnosed with a 6 mm stone, was sent home on Percocet, and is post to follow-up with urology next week. She is nauseated but has not vomited, still denies any dysuria, but Percocet is not controlling her pain. [facility] Medical History Anxiety Depression Gestational diabetes Gestational diabetes requiring insulin LGA (large for gestational age) fetus Polyhydramnios Home Medications sertraline 50 mg tablet (Zoloft) 50 mg PO DAILY DEPRESSION 07/03/23 [History Last Taken 08/31/23 21:00 50 mg] albuterol sulfate 90 mcg/actuation aerosol inhaler 2 puff inhalation Q6H PRN shortness of breath or wheezing 09/01/23 [History Last Taken 07/21/23 17:00 2 puff] vit no.95-ferrous fumarate 28 mg-folic acid 800 mcg tablet () 1 tab PO DAILY 09/01/23 [History Last Taken 08/31/23 21:00 1 TAB] acetaminophen 500 mg tablet 1,000 mg (2 x 500 mg) PO Q6H #0 tabs 09/02/23 [Rx Last Taken Unknown] ibuprofen 600 mg tablet 600 mg PO Q6H #0 tabs 09/02/23 [Rx Last Taken Unknown] ketorolac 10 mg tablet 10 mg PO Q8H PRN pain 5 days #15 tabs 10/13/23 [Rx Last Taken Unknown] tamsulosin 0.4 mg capsule (Flomax) 0.4 mg PO DAILY #10 caps 10/13/23 [Rx Last Taken Unknown] Allergy/AdvReac Type Severity Reaction Status Date / Time No Known Allergies Allergy Verified 10/13/23 14:54 Surgical History History of surgery Previous section S/P primary low transverse [place] teeth extracted Social History Smoking Status: Never smoker ROS ROS ED ROS Narrative Constitutional: No fever, no chills. HEENT: No sore throat. No neck pain. No loss of vision. No rhinorrhea. Cardiovascular: No chest pain. No palpitations. No pedal edema. Respiratory: No cough, no shortness of breath. Abdominal: No abdominal pain. Positive nausea. No vomiting. Genitourinary: No dysuria. No hematuria. Positive right flank pain. Musculoskeletal: No myalgias. No arthralgias. Neurologic: No headaches. No dizziness. No lightheadedness. Skin: No rash. No change in color. Psychiatric: No depression. No anxiety. EXAM Physical Exam Narrative Exam Narrative: Afebrile. Vital signs noted. HEENT: Normocephalic. Atraumatic. PERRL, EOMI. Neck soft and supple. No point tenderness or step off. Cardiovascular: Regular rate and rhythm. No murmurs, rubs, or gallops appreciated. Respiratory: No tachypnea. Lungs clear to auscultation bilaterally. Gastrointestinal: Abdomen soft, nontender, with normoactive bowel sounds. No rebound or guarding. Neurological: Awake. Alert. Nonfocal, nonlateralizing. Skin: No rash. Normal color. No pallor. Musculoskeletal: No pedal edema. Full range of motion extremities. Const Vital Signs: 10/13/23 14:55 10/13/23 16:26 Temperature 96.4 F L Temperature Source Temporal Pulse Rate 70 60 Respiratory Rate 18 16 Blood Pressure 126/64 H 99/60 Blood Pressure Mean 84 73 Pulse Ox 97 99 Oxygen Delivery Method Room Air Room Air MDM MDM MDM Narrative Medical decision making narrative: In the differential diagnosis is intractable pain from 6 mm ureterolithiasis. In discussion with the patient, she states that the stone was in the kidney but she also states that it was blocking the tube reportedly. Concern would be for her developing septic stone, but she is afebrile and not tachycardic and not meeting any SIRS criteria currently. I will repeat blood work including hCG, and obtain imaging here in the form of CT to see if the stone has moved at all. For pain control I will start with Toradol to see if it is secondary to spasming in effort to see if pain can be controlled. I reviewed her laboratory work and she has normal white count of 10.9, hemoglobin 11.7, hematocrit 38.0, platelet count normal at 201. Her electrolyte panel is grossly unremarkable except for slight bump in creatinine to 1.27 with a normal BUN of 16, glucose appropriately elevated at 89. Urinalysis is negative for infection, on review 0-5 WBCs and 0 bacteria. I do not feel antibiotics are indicated. Upon repeat examination, she states that her pain has improved considerably. I discussed with them the use of NSAIDs and Toradol instead of opiate pain medication. She did state that she was sent home with Flomax but has only taken that for 2 days. I reviewed the CT report of the abdomen and pelvis without contrast and there is a 5 mm ureterovesicular junction stone causing hydronephrosis on the right. There is a left renal stone measuring 5 mm but no hydronephrosis. As her pain is well-controlled, I feel that she can be discharged to follow-up with urology next week as scheduled. I discussed patient with Dr. Unique Miller, who will follow her up with her as an outpatient. She is to call the office on Monday if she needs to be seen sooner. At this point in time, she will be discharged to follow-up. Return instructions to the emergency department were reviewed including fever, intractable pain, new or worsening symptoms. Disposition is discharged home in stable condition. History & Record Review Discussion w/independent historian: Patient Additional record(s) reviewed:: Prior labs Lab Data Attestation: I reviewed the patient's lab results. Labs: Laboratory Results - last 24 hr 10/13/23 10/13/23 16:20 16:35 WBC 10.9 RBC 4.15 L Hgb 11.7 L Hct 38.0 MCV 91.6 MCH 28.2 MCHC 30.8 L RDW Std Deviation 45.2 H RDW Coeff of Ashwin 13.4 Plt Count 201 MPV 10.3 Immature Gran % (Auto) 0.300 Neut % (Auto) 76.1 H Lymph % (Auto) 15.9 L [place] % (Auto) 6.0 Eos % (Auto) 1.3 Baso % (Auto) 0.4 Absolute Neuts (auto) 8.3 H Absolute Lymphs (auto) 1.74 Nucleated RBC % 0 Sodium 139 Potassium 3.7 Chloride 107 Carbon Dioxide 25.0 Anion Gap 7 BUN 16 Creatinine 1.27 H Estim Creat Clear Calc 88.24 Est GFR (MDRD) Af Amer 63 Est GFR (MDRD) Non-Af 52 L BUN/Creatinine Ratio 12.6 Glucose 89 Calcium 8.3 L Serum , Qual NEGATIVE Urine Color Yellow Urine Clarity Clear Urine pH 5.0 Ur Specific [place] 1.020 Urine Protein Negative Urine Glucose (UA) Normal Urine Ketones Negative Urine Occult Blood 250 H Urine Nitrite Negative Urine Bilirubin Negative Urine Urobilinogen Normal Ur Leukocyte Esterase 25 H Urine RBC 10-25 SEEN Urine WBC 0-5 SEEN Ur Squamous Epith Cells 0-5 SEEN Urine Bacteria 0 SEEN Urine Mucus 0 SEEN Radiography Diagnostic Testing: Clinical Impression(s) from Imaging Studies Abdomen/Pelvis CT 10/13/23 15:54 IMPRESSION: 5 mm right ureterovesical junction stone with mild to moderate hydronephrosis Additional nonobstructive left renal stone. Hepatic steatosis. Electronically Signed: Yehuda Hughes MD at 17:16 EDT , Discharge Plan Triage Chief Complaint: Flank Pain ED Provider: Tom Muñoz Dx/Rx/DC Orders Clinical Impression: Hydronephrosis, Creatinine elevation, Ureterolithiasis Instructions: ED Kidney Stone with Pain Prescriptions: New ketorolac 10 mg tablet 10 mg PO Q8H PRN (Reason: pain) 5 Days Qty: 15 0RF tamsulosin [Flomax] 0.4 mg capsule 0.4 mg PO DAILY Qty: 10 0RF No Action PNV cmb#95-ferrous fumarate-FA [] 28 mg iron- 800 mcg tablet 1 tab PO DAILY albuterol sulfate 90 mcg/actuation HFA aerosol inhaler 2 puff INHALATION Q6H PRN (Reason: shortness of breath or wheezing) Patient Comments: INHALE 1 PUFF EVERY 6 HOURS NEEDED acetaminophen 500 mg Tablet 1,000 mg PO Q6H Qty: 0 0RF ibuprofen 600 mg Tablet 600 mg PO Q6H Qty: 0 0RF sertraline [Zoloft] 50 mg tablet 50 mg PO DAILY Primary Care Provider: Lauren Fleming Referrals: Unique Miller MD [Med Staff - Active Staff] - 1 Week Lauren Fleming DO [Primary Care Provider] - Activity Restrictions/Additional Instructions: Call Dr. Miller on Monday if you need to be sooner than next Monday. Return with fever, intractable pain, new or worsening symptoms. Sometimes, Toradol may be better at controlling your flank pain that an opiate medication. Disposition Disposition: Home, Self Care
[2023-10-13] MEDS: Ondansetron 4 MG/2 ML Vial IV (16:24)
[2023-10-13] MEDS: Ketorolac 30 MG/ML Syringe IV (16:24)
[2023-10-13 16:26] VITALS: BP 99/60; PULSE 60; RESP 16; O2SAT 99
[2023-10-13 16:36] LABS: Absolute Lymphocyte Count 1.74 X10^3/uL (0.83-4.51); Absolute Neutrophil Count 8.3 X10^3/uL (2.0-7.7); Basophil# 0.04 X10^3/uL; Basophil% 0.4 % (0-1); Eosinophil# 0.14 X10^3/uL; Eosinophils% 1.3 % (0-5); Hemoglobin 11.7 g/dL (12.0-15.0); Lymphocyte # 1.74 X10^3/ul (0.83-4.51); Lymphocyte % 15.9 % (19-41); Mean Corp Hgb Conc 30.8 g/dL (32-36); Mean Corpuscular Hgb 28.2 pg (27.0-32.0); Mean Corpuscular Volume 91.6 fL (81-99); Mean Platelet Vol. 10.3 fl (6.2-12.0); Monocyte# 0.65 X10^3/uL; NRBC Flagged by Analyzer 0 % (0-5); Neutrophil # 8.32 X10^3/uL (2.7-7.7); Neutrophil % 76.1 % (47-70); Platelet Count 201 K/mm3 (150-450); RBC Distribution Width CV 13.4 % (11.6-14.6); RBC Distribution Width SD 45.2 fl (35.1-43.9); Red Blood Count 4.15 M/mm3 (4.2-5.4); White Blood Count 10.9 K/mm3 (4.4-11.0)
[2023-10-13 16:43] LABS: Internal QC Validated? YES +Cl - CLEAR BKGD; Pregnancy, Serum, hCG Quali. NEGATIVE Negative
[2023-10-13 16:43] LABS: Bacteria 0 SEEN /hpf (None Seen); Mucous, Urine 0 SEEN /hpf (<or=2+)
[2023-10-13 16:46] LABS: Color, Urine Yellow (Yellow); Glucose, Dipstick Normal (Normal); Ketone-Dipstick Negative (Negative); Leukocyte Esterase-Dipstick 25 /ul (Negative); Nitrite-Dipstick Negative (Negative); Occult Blood-Urine 250 /ul (Negative); Protein-Dipstick Negative (Negative); Urine Bilirubin Dipstick Negative (Negative); Urine Clarity Clear (Clear); Urine Urobilinogen Normal (Normal)
[2023-10-13 16:46] LABS: Anion Gap 7 (5-15); BUN 16 mg/dL (7-18); BUN/Creat Ratio 12.6 RATIO (10-20); Calcium,Total 8.3 mg/dL (8.5-10.1); Chloride 107 mmol/L (98-107); Creatinine, Serum 1.27 mg/dL (0.55-1.02); EST Glomerular Filtration Rate 52 mL/min (>60); Est Glom Filt Rate - Afr Amer 63 mL/min (>60); Estimated Creatinine Clearance 88.24 ml/min; Glucose 89 mg/dL (74-106); Potassium 3.7 mmol/L (3.5-5.1); Sodium Level 139 mmol/L (136-145)
[2023-10-13 16:53] LABS: Red Blood Cells-Urine 10-25 SEEN /hpf (0-5); Squamous Epithelial Cells - UA 0-5 SEEN /hpf (5-10); White Blood Cells 0-5 SEEN /hpf (0-5)
[2023-10-13] MEDS: 0.9% Normal Saline (1000mL) 1,000 ML 999 ML IV (17:23)
[2023-10-13 17:59] VITALS: BP 97/74; PULSE 65; RESP 16; TEMP 36.1; O2SAT 97
== END 2023-10-13 18:01 | disposition home or self-care (01) ==
PROVIDERS: Emergency Provider Emergency Medicine; PCP Family Medicine; Visit Provider Emergency Medicine
DX: N13.2 Hydronephrosis with renal and ureteral calculous obstruction (principal); R79.89 Other specified abnormal findings of blood chemistry; F32.A Depression, unspecified; Z79.899 Other long term (current) drug therapy
CPT/HCPCS: 74176; 80048; 81001; 84703; 85025; 96361; 96374; 96375; 99283; J7030; A4216; J2405

== ENCOUNTER → 2023-10-20 | Outpatient (CLI) | payer OTHER, SELFPAY ==
--- NOTE | 2023-10-20 12:45 | RAD_ITS ---
EXAM: XR ABDOMEN, 1 VIEW CLINICAL INDICATION: KUB- STONES TECHNIQUE: Frontal supine view of the abdomen/pelvis. COMPARISON: No relevant prior studies available. FINDINGS: GASTROINTESTINAL TRACT: Normal bowel gas pattern. ORGANS: 2 stones within the lower pole of the left kidney measuring 4 mm in diameter. BONES/JOINTS: No acute abnormality. RAD/Abdomen Single View IMPRESSION: Left nephrolithiasis. Electronically Signed: Alli Anderson MD at 17:00 EDT ,
== END | disposition home or self-care (01) ==
LOC: MTRAD 12:44
PROVIDERS: PCP Family Medicine; Referring Provider Urology; Visit Provider Urology
DX: N20.0 Calculus of kidney (principal)
CPT/HCPCS: 74018

== ENCOUNTER 2023-11-09 07:19 | Day surgery (SDC) | payer OTHER, SELFPAY ==
[2023-11-09] VITALS (7 sets, daily range): BP systolic 107–136; BP diastolic 71–92; PULSE 55–75; RESP 16–18; TEMP 36.2–36.8; O2SAT 95–98; BMI 38.9
[2023-11-09 07:39] LABS: Internal QC Validated? YES +Cl - CLEAR BKGD; Pregnancy, Urine Negative Negative
--- NOTE | 2023-11-09 07:45 | PCM.OPRPT ---
Report of Operation Date of Procedure: 11/09/23 Pre-Operative Diagnosis: Left renal stone Post-Operative Diagnosis: Same Surgery/Procedure Performed:: Left renal extracorporal shockwave lithotripsy Description of Surgical Findings:: Surgeon: Unique Miller Type of Anesthesia: General Specimen's removed: None Description of Procedure: The patient is a 32-year-old female with left renal stone who presents for shockwave lithotripsy. Informed consent has been obtained. The patient was taken to the operating room and placed on the lithotripsy table. Anesthesia monitored the head, neck, airway, IV access and vital signs throughout the case. Once anesthesia was appropriately administered, she was aligned with the machine. The stone was visible and 3000 shocks were applied. The stone appeared to be well fragmented at the conclusion of the case. She was awakened and taken to the recovery room in good condition. There were no complications during this procedure. Grafts/Implants Used: None Complications None Admit VTE Documentation VTE Present on Admission: Yes VTE Mechan Device Prophylaxis: SCD's VTE Pharm Prophylaxis ordered?: No Reason prophylaxis not ordered:: Treatment Not Indicated
--- NOTE | 2023-11-09 07:46 | DCINST_ITS ---
Discharge Instructions Diet Discharge Diet: No restrictions Activity Discharge Activity: Return to Normal Activity Dressing / Incision Call your doctor if you observe: Fever of 101 or Higher, Inability to urinate and Inability to have a bowel movement Follow Up Care Please Follow Up With: Unique Miller MD When: In the office with a KUB in 2 to 3 weeks Test Results: Test results from this visit will be discussed in further detail at your follow- up appointment, if applicable. Discharge Plan Admission Attending Provider: Unique Miller Primary Care Provider: Yue Johnston Instructions Print Language: Divehi Discharge Orders/Prescriptions Prescriptions: New oxycodone-acetaminophen [Percocet] 5-325 mg tablet 1 tab PO Q8H PRN (Reason: pain) 3 Days Qty: 10 0RF cephalexin 500 mg capsule 500 mg PO Q12 3 Days Qty: 6 0RF Continued albuterol sulfate 90 mcg/actuation HFA aerosol inhaler 2 puff INHALATION Q6H PRN (Reason: shortness of breath or wheezing) Patient Comments: INHALE 1 PUFF EVERY 6 HOURS NEEDED bupropion HCl 300 mg tablet extended release 24 hr 300 mg PO DAILY dextroamphetamine-amphetamine 25 mg capsule,extended release 24hr 1 cap PO DAILY acetaminophen 500 mg Tablet 1,000 mg PO Q6H PRN PRN (Reason: pain) ibuprofen 600 mg Tablet 600 mg PO Q6H PRN PRN (Reason: pain) Referrals / Follow Up: Lauren Fleming DO [Med Staff - Electronic Prepress Operator] - Disposition Disposition (needs filled in before D/C Order can be placed): Home, Self Care
[2023-11-09] MEDS: Lactated Ringers 1,000 ML 15 ML IV (07:50)
[2023-11-09] MEDS: Cefazolin 2 GM in 0.9% Normal Saline (100mL Bag) 100 ML IV (08:50)
== END 2023-11-09 10:46 | disposition home or self-care (01) ==
LOC: SDC 07:21 → AC 07:23
PROVIDERS: PCP Family Medicine; Referring Provider Urology; Visit Provider Urology
PROC: (CPT 50590; principal; 2023-11-09 08:50)
DX: N20.0 Calculus of kidney (principal); F41.9 Anxiety disorder, unspecified; F32.A Depression, unspecified
CPT/HCPCS: 50590; 00873; 81025; J7120; J2405

== ENCOUNTER → 2023-12-01 | Outpatient (CLI) | payer OTHER, SELFPAY ==
--- NOTE | 2023-12-01 10:40 | RAD_ITS ---
STUDY: X-RAY - ABDOMEN/PELVIS REASON FOR EXAM: Female, 33 years old. KUB- KIDNEY STONE TECHNIQUE: Single AP view of the abdomen / pelvis. COMPARISON: Comparison is made with prior study dated October 20, 2023. FINDINGS: There is a moderate amount of colonic fecal material. The previously seen calculus in the lower pole calyx of the left kidney is not seen at this time. Normal soft tissue structures. Normal visualized osseous structures. RAD/Abdomen Single View IMPRESSION: No renal calcification is seen at this time. Electronically Signed: Michael Fox MD at 15:30 EDT ,
== END | disposition home or self-care (01) ==
LOC: MTRAD 10:39
PROVIDERS: PCP Family Medicine; Referring Provider Urology; Visit Provider Urology
DX: N20.0 Calculus of kidney (principal)
CPT/HCPCS: 74018

== ENCOUNTER → 2023-12-08 | Outpatient (CLI) | payer OTHER, SELFPAY ==
--- NOTE | 2023-12-08 11:08 | RAD_ITS ---
STUDY: X-RAY - RIGHT FOOT CLINICAL: Female, 33 years old. Pain to right fore foot TECHNIQUE: 3 view(s) of the foot. COMPARISON: None. FINDINGS: There is a plantar calcaneal spur. Normal visualized subtalar, talonavicular, calcaneocuboid, tarsal and tarsometatarsal articulations. Normal metatarsi. Normal metatarsophalangeal joint of the great toe. Normal tibial and fibular sesamoid bones. Normal interphalangeal joint of the great toe. Normal phalanges of the great toe. Normal second through fifth metatarsophalangeal joints. Normal interphalangeal joints and phalanges of the lesser toes. The soft tissue structures are unremarkable. RAD/Foot min 3 Views IMPRESSION: Small plantar spur. Electronically Signed: Michael Fox MD at 15:15 EDT ,
== END | disposition home or self-care (01) ==
LOC: MTRAD 11:06
PROVIDERS: PCP Family Medicine; Referring Provider Family Medicine; Visit Provider Family Medicine
DX: M79.671 Pain in right foot (principal)
CPT/HCPCS: 73630

== ENCOUNTER → 2024-10-03 | Outpatient (CLI) | payer OTHER, SELFPAY ==
--- NOTE | 2024-10-03 07:25 | US_ITS ---
PROCEDURE: Ultrasound of the abdominal aorta. 10/03/2024 REASON FOR EXAM: Family history of abdominal aortic aneurysm COMPARISON: CT abdomen/pelvis 10/13/2023 FINDINGS: No significant atherosclerotic calcification of the abdominal aorta. Abdominal aorta measurements in cm : Proximal: 2.2 x 2.1 Mid: 1.7 x 1.3 Distal: 1.4 x 1.2 The iliac arteries are obscured by overlying bowel gas. The abdominal aorta has a grossly normal contour. No abdominal aortic aneurysm is identified. US/Aorta IMPRESSION: NORMAL ULTRASOUND OF THE ABDOMINAL AORTA. NO ANEURYSM. Reading [facility]
== END | disposition home or self-care (01) ==
LOC: US 07:20
PROVIDERS: PCP Family Medicine; Referring Provider Family Medicine; Visit Provider Family Medicine
DX: Z13.6 Encounter for screening for cardiovascular disorders (principal); Z82.49 Family history of ischemic heart disease and other diseases of the circulatory system
CPT/HCPCS: 76775

== ENCOUNTER → 2024-12-30 | Outpatient (CLI) | payer OTHER, SELFPAY ==
[2024-12-30 19:26] LABS: Barbiturate Urine NEGATIVE (< 200 ng/mL); Benzodiazepine Urine NEGATIVE (< 200 ng/mL); PCP Urine NEGATIVE (< 25 ng/mL); THC Urine NEGATIVE (< 50 ng/mL)
== END | disposition home or self-care (01) ==
LOC: LAB 16:29
PROVIDERS: PCP Family Medicine; Referring Provider Family Medicine; Visit Provider Family Medicine
DX: F90.9 Attention-deficit hyperactivity disorder, unspecified type (principal)
CPT/HCPCS: 80307